=== PATIENT | female | born 1930 | race Caucasian/White ===

== ENCOUNTER 2017-08-16 17:54 | Inpatient (IN) | payer MEDICARE, MEDICAID ==
--- NOTE | 2017-08-16 18:16 | ED Physician Chart ---
ED Chief Complaint/HPI - Patient Information Date Seen:: 08/16/17 Time Seen:: 18:00 Chief Complaint:: Abdominal Pain History of Present Illness:: onset x one day of diffuse, intermittent, crampy abdominal pain, N/V/D x 10; no report of trauma, H/As, S/T, neck pain, C/P, SOB, A/C, fever, chills, bleeding, or urinary s/s Historian:: Patient, EMS Review:: Nurse's Note Reviewed, Old Chart Reviewed, EMS run form Reviewed ED Review of Systems - Review of Systems General/Constitutional: No fever, No chills, No weight loss, No weakness, No diaphoresis, No edema, No loss of appetite Skin: No skin lesions, No rash, No bruising Head: No headache, No light-headedness Eyes: No loss of vision, No pain, No diplopia ENT: No earache, No nasal drainage, No sore throat, No tinnitus Neck: No neck pain, No swelling, No thyromegaly, No stiffness, No mass noted Cardio Vascular: No chest pain, No palpitations, No PND, No orthopnea, No edema Pulmonary: No SOB, No cough, No sputum, No wheezing GI: Nausea, Vomiting, Diarrhea, Pain, No melena, No hematochezia, No constipation, No hematemesis G/U: No dysuria, No frequency, No hematuria, No nacturia [employer]: No vaginal discharge, No abnormal vaginal bleed, No contraction Musculoskeletal: No bone or joint pain, No back pain, No muscle pain Endocrine: No polyuria, No polydipsia Psychiatric: No prior psych history, No depression, No anxiety, No suicidal ideation, No homicidal ideation, No auditory hallucination, No visual hallucination Hematopoietic: No bruising, No lymphadenopathy Allergic/Immuno: No urticaria, No angioedema Neurological: No syncope, No focal symptoms, No weakness, No paresthesia, No headache, No seizure, No dizziness, Confusion, No vertigo ED Past Medical History - Past Medical History Obtainable: Yes Past Medical History: HTN, CAD, Asthma/COPD, PUD/GERD, ESRD, Dementia Family History: Diabetes Melitus, HTN Social History: Non Smoker, No Alcohol, No Drug Use, , Care Facility Surgical History: None Psychiatricy History: Dementia Medication: Reviewed Family Medical History - Family Member Mother History Unknown: Yes ED Physical Exam - Physical Examination General/Constitutional: Awake, Well-developed, well-nourished, Alert, No distress, GCS 15, Non-toxic appearing, Ambulatory Head: Atraumatic Eyes: Lids, conjuctiva normal, PERRL, EOMI Skin: Nl inspection, No rash, No skin lesions, No ecchymosis, Well hydrated, No lymphadenopathy ENMT: External ears, nose nl, TM canals nl, Nasal exam nl, Lips, teeth, gums nl , Oropharynx nl, Tonsils nl Neck: Nontender, Full ROM w/o pain, No JVD, No nuchal rigidity, No bruit, No mass, No stridor Respiratory: Nl effort/Exclusion Other Respiratory comments:: Lungs: + Expiratory Wheezes Cardio Vascular: RRR, No murmur, gallop, rubs, NL S1 S2, Carotid/Femoral/Distal pulses equal bilaterally GI: No tenderness/rebounding/guarding, No organomegaly, No hernia, Normal BS's, Nondistended, No mass/bruits, No McBurney tenderness, Rectum exam nl : No CVA tenderness Extremities: No tenderness or effusion, Full ROM, normal strength in all extremities, No edema, Normal digits & nails Neuro/Psych: Alert/oriented, DTR's symmetric, Normal sensory exam, Normal motor strength, Judgement/insight normal, Mood normal, Normal gait, No focal deficits Misc: Normal back, No paraspinal tenderness ED Labs/Radiology/EKG Results - Lab Results Comments:: Troponin: 0.20 - Radiology Results Comments:: + Infiltrate - EKG Interpretations EKG Time:: 18:24 Rate & Rhythm: 118; ST; PAT Comments:: non-specific st-t changes; T- Wave Inversions ED Septic Shock - . Is Septic Shock (SBP<90, OR Lactate>4 mmol\L) present?: No ED Reassessment (Disposition) - Reassessment Reassessment Condition:: Improved - Diagnosis Diagnosis:: Abdominal Pain; N/V/D; AGE; GI Bleed; AGE; PNA; COPD with Exacerbation; Sepsis; Myocardial Ischemia - Aftercare/Follow up Instructions Aftercare/Follow-Up Instructions:: Counseled pt regarding lab results/diagnosis & need follow up, Counseled pt & family regarding lab results/diagnosis & need follow up - Patient Disposition Discharge/Transfer:: Acute Care w/in this hosp Accepting Physician:: Dr. Cheek Time Called:: 1999 Time Responded:: 20:00 Admitted to:: Telemetry Spoke to:: Dr. Cheek Admitting Medical Physician:: Dr. Cheek Condition at Disposition:: Stable, Improved
[2017-08-16] MEDS ORDERED: Sodium Chloride 0.9% 1,000 ML IV ONE (18:17)
[2017-08-16] MEDS ORDERED: Albuterol/Ipratropium Neb 3 ML AERS HHN ONE (18:21)
[2017-08-16] MEDS ORDERED: Ipratropium Neb 0.5 mg/2.5 mL UD HHN ONE (18:22)
[2017-08-16] MEDS ORDERED: Ipratropium Neb 0.5 mg/2.5 mL UD HHN STA (18:44)
[2017-08-16 18:49] LABS: % EOSINOPHILS 0.3 % (0.0-5.0); % LYMPHOCYTES 15.2 % (20.0-50.0); % MONOCYTES 5.7 % (2.0-10.0); % NEUTROPHILS 78.8 % (40.0-80.0); HEMATOCRIT 46.5 % (41.0-60); HEMOGLOBIN 15.1 gm/dL (12-16); LYMPHOCYTE ABSOLUTE 1.3 Th/cmm (1.5-3.0); MEAN CELL VOLUME 93.1 fl (81-100); MEAN CORPUSCULAR HEMOGLOBIN 30.3 pg (27.0-31.0); MEAN CORPUSCULAR HGB CONC 32.6 pg (28.0-36.0); MEAN PLATELET VOLUME 6.8 fl; MONOCYTE ABSOLUTE 0.5 Th/cmm (0.3-1.0); PLATELET COUNT 427 Th/cmm (150-400); RED CELL DISTRIBUTION WIDTH 14.1 % (11.5-20.0); WHITE BLOOD COUNT 8.8 Th/cmm (4.8-10.8)
[2017-08-16 19:10] LABS: ALB/GLOB RATIO 0.8 (1.0-1.8); ALBUMIN 3.2 gm/dL (3.7-5.3); ALKALINE PHOSPHATASE 107 U/L (34-104); BILIRUBIN,TOTAL 0.5 mg/dL (0.3-1.0); BUN - UREA NITROGEN 15 mg/dL (7-25); CALCIUM SERUM 9.6 mg/dL (8.6-10.3); CHLORIDE 99 mEq/L (98-107); CHOLESTEROL 130 mg/dL (<200); CREATININE - SERUM 1.1 mg/dL (0.6-1.2); CREATININE KINASE 21 U/L (30-223); GLUCOSE 190 mg/dL (70-105); HDL -HIGH DENSITY LIPOPROTEIN 24 mg/dL (23-92); SGOT 20 U/L (13-39); SGPT/ALT 5 U/L (7-52); SODIUM SERUM 135 mEq/L (136-145); TRIGLYCERIDES 143 mg/dL (<150)
[2017-08-16 19:20] LABS: INR 1.06 (0.5-1.4)
[2017-08-16 19:24] LABS: AMYLASE SERUM 12 U/L (29-103); LIPASE 6 U/L (11-82)
[2017-08-16 19:25] LABS: pH 7.38 (7.35-7.45)
[2017-08-16 19:26] LABS: ALLEN TEST y
[2017-08-16] MEDS ORDERED: Levofloxacin 500mg/100mL 500 MG/100 ML BAG IV ONE ×2 (19:55→20:27)
[2017-08-16] MEDS: Sodium Chloride 0.9% 1,000 ML IV SCH (22:00)
[2017-08-16 22:16] LABS: A1C % 5.1 % (4.0-6.0)
[2017-08-16] MEDS: Hydrocodone/APAP 5mg/325mg Tab PO SCH (23:52)
[2017-08-17] MEDS: Morphine Sulfate 2 mg/mL 1mL Syr IVP PRN ×8 (01:36→23:43)
[2017-08-17] MEDS: Levofloxacin 250mg/50mL 250 MG/50 ML BAG IV SCH (02:11)
--- NOTE | 2017-08-17 02:39 | Consultation ---
DATE OF CONSULTATION: 08/16/2017 INFECTIOUS DISEASE CONSULTATION REFERRING PHYSICIAN: Dr. Cheek. REASON FOR CONSULTATION: Abdominal pain. HISTORY OF PRESENT ILLNESS: The patient is an 87-year-old female with a past medical history of hypertension, coronary artery disease, asthma, COPD, peptic ulcer, GERD, brought from the nursing facility for diffuse, crampy abdominal pain associated with nausea, vomiting and diarrhea for the last 10 days. The patient has no fever, no chills. On initial evaluation, the patient's temperature was 98.9 degrees Fahrenheit and WBC count was 8800. Zosyn and vancomycin were started and ID consult was called for further antibiotic management. PAST MEDICAL HISTORY: Includes coronary artery disease, hypertension, asthma, COPD, peptic ulcer, GERD and dementia. FAMILY HISTORY: Diabetes mellitus type 2, hypertension. SOCIAL HISTORY: The patient lives at a nursing facility. No history of smoking, alcohol or drug use. She is . PAST SURGICAL HISTORY: None. PSYCHIATRIC HISTORY: Dementia. REVIEW OF SYSTEMS: GENERAL: The patient has no fever, no chills, no generalized weakness, no loss of appetite. HEENT: No diplopia, no photophobia, no sore throat. RESPIRATORY: No cough, no short of breath. CARDIOVASCULAR: No chest pain or palpitations. GASTROINTESTINAL: The patient has diffuse, crampy abdominal pain. The patient has nausea and vomiting with diarrhea. No constipation. GENITOURINARY: No dysuria. NEUROLOGIC: No headache, no dizziness. No focal weakness. PHYSICAL EXAMINATION: VITAL SIGNS: Current vital signs show temperature is 99.8 degrees Fahrenheit, pulse 102, respirations 18, blood pressure 102/56. GENERAL: The patient is comfortable, lying in the bed, not in acute distress, lean and thin female. HEENT: Head is normocephalic, atraumatic. Oral cavity moist, pink tongue. Eyes: No pallor, no icterus, PERRLA, EOMI. NECK: Supple. No JVD, no carotid bruit. Trachea in midline. CHEST: Bilateral breath sounds. No crackles or wheezing. HEART: S1, S2 within normal limits. Regular rhythm. No murmur, no gallop. ABDOMEN: The patient is nondistended, but the patient has generalized tenderness. Bowel sounds present. EXTREMITIES: No cyanosis, no clubbing, no edema. NEUROLOGICAL: Alert, awake, oriented x 3. Communicates well. Speech is clear. LABORATORY DATA: Current labs show WBC count 8800, hemoglobin 15.1, hematocrit 46.5, platelets are 427,000, neutrophils 78.8%. Sodium is 135, potassium 4, chloride 99, bicarbonate is 23, BUN is 17, creatinine 1.1, and glucose is 190. LFTs reviewed. CPK is 21. Troponin 0.2 and BNP 163. Chest x-ray is pending. IMPRESSION: 1. Colicky abdominal pain, most likely the patient had gastroenteritis, rule out other etiologies. 2. Coronary artery disease. 3. Chronic obstructive pulmonary disease. 4. Peptic ulcer disease. RECOMMENDATIONS: We will continue Zosyn and discontinue vancomycin. We will do a CT scan of the abdomen and pelvis without contrast. Thank you, Dr. Cheek, for involving me in taking care of this patient. JOB# [id number]
[2017-08-17] MEDS: Hydrocodone/APAP 5mg/325mg Tab PO SCH ×4 (04:01→21:00)
[2017-08-17] MEDS: Levothyroxine 0.025 Mg Tab PO SCH (06:57)
[2017-08-17] MEDS: Pantoprazole 40 mg EC Tab PO SCH (06:58)
[2017-08-17 07:13] LABS: URINE MICROSCOPIC INDICATED? YES; URINE SOURCE CATH
[2017-08-17] MEDS: Albuterol Nebulizer 2.5mg/3mL HHN PRN (07:14)
[2017-08-17 08:11] LABS: URINE BILIRUBIN NEGATIVE (NEGATIVE); URINE BLOOD NEGATIVE (NEGATIVE); URINE GLUCOSE (UA) NEGATIVE (NEGATIVE); URINE KETONE 15 mg/dL (NEGATIVE); URINE LEUKOCYTE ESTERASE MODERATE (NEGATIVE); URINE NITRATE POSITIVE (NEGATIVE); URINE PH 5.5 (4.6 - 8.0); URINE PROTEIN TRACE mg/dL (NEGATIVE)
[2017-08-17 08:14] LABS: URINE CLARITY TURBID (CLEAR); URINE COLOR YELLOW
[2017-08-17 08:29] LABS: URINE RBC 0-2 /hpf (0-5)
[2017-08-17 08:30] LABS: URINE BACTERIA 4+ /hpf (NONE SEEN); URINE EPITHELIAL CELLS MODERATE /lpf (FEW); URINE WBC 50-100 /hpf (0-5)
[2017-08-17] MEDS: Diltiazem 30 mg Tab PO SCH ×2 (08:59→17:10)
[2017-08-17] MEDS ORDERED: CRANBERRY FRUIT EXTRACT PO SCH (09:00)
--- NOTE | 2017-08-17 11:48 | Diagnostic Imaging Report ---
CHEST X-RAY: AP view INDICATION: pain COMPARISON: None FINDINGS: Chronic lung changes are seen with increased left basal lung markings. No focal consolidation or effusions. Mild cardiomegaly is noted with atherosclerotic vascular disease. Degenerative changes of the spine are noted. IMPRESSION: Chronic lung changes with increased left basal lung markings probably chronic. Faint infiltrate is less likely. Mild cardiomegaly with atherosclerosis.
--- NOTE | 2017-08-17 13:07 | Diagnostic Imaging Report ---
CT abdomen and pelvis without intravenous contrast Indication: Abdominal pain Comparison: None, Technique: Axial images were obtained from the lung bases to the bilateral proximal femurs without IV contrast. Coronal reconstructions were made. total DLP: 728, [id number] FINDINGS: Hypoventilatory atelectatic changes of the lung bases are noted. Bibasal consolidative changes are noted. Assessment of solid organs is limited that lack of IV contrast. Cardiomegaly is noted. There is a moderate to large sized hiatal hernia. No focal hepatic lesions. Distended gallbladder is noted with gallstones. No focal splenic lesions. Splenic artery calcifications are noted with calcification of the splenic hilum also noted. Severe pancreatic atrophy is noted with no discrete focal lesions. No focal pancreatic lesions. No evidence of hydronephrosis or nephrolithiasis. Diverticulosis is noted with diffuse inflammatory changes and bowel wall thickening involving the descending and sigmoid colon with small surrounding free fluid suggestive of diverticulitis and possible colitis. Inflammatory changes extend to the pelvis. The urinary bladder wall thickening is also noted. There is suggestion of the Tiny pocket of gas is seen along left side of the urinary bladder. There appear to be fibroid calcification of the uterus measuring 1.8 cm. There is a cystic right adnexal mass is in 5.0 x 4.5 cm. No evidence of free abdominal air or abscess. Diffuse atherosclerotic vascular disease is noted. An IVC filter is seen at the L2/L3 level. Extensive multilevel degenerative changes of spine are noted advanced compression fractures of T11 and L3. There is also evidence of previous posterior fusion of L2 and L4. Osteopenia is noted. IMPRESSION: Diverticulosis with bowel wall thickening and inflammatory change extending from the descending colon to the sigmoid colon with small amount of adjacent free fluid. Findings suggest diverticulitis. There may be colitis within the descending colon. Clinical correlation follow up recommended. No evidence of free air or abscess formation. Diverticular inflammatory changes extend to the pelvis. Urinary bladder wall thickening is also noted. There is suggestion of a tiny pocket of gas along the superior left side of the urinary bladder. Recent instrumentation or infectious/inflammatory process should be considered. Occult fistulous connection from the sigmoid colon to the urinary bladder is less likely but cannot be excluded. Right adnexal 5.0 x 4.5 cm cystic lesion. Recommend further assessment with ultrasound. Calcified uterine fibroid. Distended gallbladder with gallstone. Recommend further assessment with ultrasound. Moderate to large size hiatal hernia Bibasilar passive atelectatic and consolidative changes. IVC filter at the L2/L3 level. Advanced compression fractures of T11 and L3. There is also evidence of posterior fusion of L2 and L4. Osteopenia. Degenerative changes. Atherosclerotic vascular disease.
[2017-08-17] MEDS: Sodium Chloride 0.9% 1,000 ML IV SCH (17:53)
--- NOTE | 2017-08-17 23:40 | History and Physical ---
History of Present Illness - HPI Chief Complaint: abdominal pain HPI: 87 year old female who is from a care facility admitted to telemetry due to nausea/vomiting/diarrhea and abdominal pain x 10 days, no fevers were reported at the care facility. Vital Signs: Last Vital Signs Temp 98.6 F 08/17/17 20:03 Pulse 93 08/17/17 20:03 Resp 19 08/17/17 20:03 BP 141/80 08/17/17 20:03 Pulse Ox 94 08/17/17 20:03 Past Medical History Other History: cad copd pud gerd dementia asthma hypotension Family Medical History - Family Member Mother History Unknown: Yes Other Medical History: Unable to remember, can't give information at this time. Social History Smoke: No Alcohol: None Drugs: None Lives: [facility] - Medications Home Medications: Home Medication Medication Instructions Recorded Type Acetaminophen [Pain Reliever] 650 mg PO Q6H PRN 08/16/17 History Albuterol Sulfate 1 unit INH Q2H PRN 08/16/17 History Albuterol Sulfate 1 unit INH Q4H 08/16/17 History Ascorbic Acid 1 tab PO DAILY 08/16/17 History Clopidogrel [Plavix] 1 tab PO DAILY 08/16/17 History Cranberry Fruit Extract [Cranberry] 1 tab PO DAILY 08/16/17 History Diltiazem [Cardizem*] 1 tab PO BID 08/16/17 History Docusate Sodium [Colace] 1 tab PO BID 08/16/17 History Donepezil Hcl [Aricept] 1 tbs PO HS 08/16/17 History Gabapentin [Neurontin] 1 tab PO Q6H 08/16/17 History Hydrocodone/Acetaminophen [[place] 1 tab PO Q6H 08/16/17 History 325 mg-5 mg*] Levothyroxine Sodium [Synthroid] 1 tab PO DAILY 08/16/17 History Montelukast [Singulair] 1 tab PO DAILY 08/16/17 History Pantoprazole Sodium [Protonix] 40 mg PO DAILY 08/16/17 History Prednisone [Adri] 1 tab PO DAILY 08/16/17 History - Allergies Allergies/Adverse Reactions: Allergies Allergy/AdvReac Type Severity Reaction Status Date / Time amoxicillin Allergy Verified 08/16/17 18:23 clindamycin Allergy Verified 08/16/17 18:24 naproxen Allergy Verified 08/16/17 18:24 Penicillins [PCN] Allergy Verified 08/16/17 18:25 raisin Allergy Uncoded 08/16/17 18:27 teflaro Allergy Uncoded 08/16/17 18:26 yogurt Allergy Uncoded 08/16/17 18:26 Review of Systems - Review of Systems Constitutional: Report: Weakness Eyes: Report: No Significant Respiratory: Report: No Significant Cardiovascular: Report: No Significant Neurological: Report: Weakness Physical Exam - Physical Exam HEENT: Report: Ears Nose Throat within normal limits Neck: Report: Within normal limits Cardiovascular Systems: Report: +s1/s2 noted, Regular, Rate and Rhythm Respiratory: Report: Breath Sounds are within normal limits Extremities: Report: Non-tender to palpation. Skin: Report: Color of skin is within normal limits Neuro/Psych: Report: Mood affect is within normal limits - Lab Results All Lab Results last 24 hours: Laboratory Results - last 24 hr 08/17/17 05:05 Urine Source CATH Urine Color YELLOW Urine Clarity TURBID H Urine pH 5.5 Ur Specific [place] 1.020 Urine Protein TRACE Urine Glucose (UA) NEGATIVE Urine Ketones 15 H Urine Blood NEGATIVE Urine Nitrate POSITIVE H Urine Bilirubin NEGATIVE Urine Urobilinogen 1.0 Ur Leukocyte Esterase MODERATE H Urine RBC 0-2 Urine WBC 50-100 H Ur Epithelial Cells MODERATE Urine Bacteria 4+ H - Assessment Assessment: abdominal pain gastroenteritis cad copd pud gerd dementia - Plan Plan: iv vanco as per id cbc/bmp in am continue the rest of the orders
--- NOTE | 2017-08-17 23:41 | Consultation ---
DATE OF CONSULTATION: 08/17/2017 REQUESTING PHYSICIAN: Guilherme Cheek. REASON FOR CONSULTATION: Abdominal pain. HISTORY OF PRESENT ILLNESS: An 87-year-old female with dementia, diabetes mellitus, hypertension, asthma, COPD, peptic ulcer disease, GERD, admitted for a few day history of vague abdominal pain with nausea, vomiting and diarrhea. Here, she was noted to have a normal white blood cell count and hemoglobin, but CT showed diverticulitis. The patient is a poor historian. It is unclear whether she has had diverticulitis previously. She is also unaware of any previous surgeries or past colonoscopies. She is, however, a poor historian. PAST MEDICAL HISTORY: As above. MEDICATIONS: Here are Tylenol, [place], albuterol, vitamin C, Plavix, diltiazem, docusate, Aricept, Neurontin, Levaquin, Synthroid, Singulair, morphine, Zofran, Protonix, Zosyn, prednisone 5 mg daily and IV fluids. ALLERGIES: AMOXICILLIN, CLINDAMYCIN, NAPROSYN, PENICILLIN, RAISINS, TEFLARO, and YOGURT. SOCIAL HISTORY: No recent tobacco, alcohol, or drugs. FAMILY HISTORY: Noncontributory. REVIEW OF SYSTEMS: A comprehensive 12-point review of systems conducted and is only positive for the signs and symptoms present in the history of present illness. PHYSICAL EXAMINATION: VITAL SIGNS: Temperature of 98.0, blood pressure is 114/58, pulse is 92, respirations 76, O2 sat is 94%. GENERAL: The patient is well-developed, well-nourished female in no acute distress. HEENT: Sclerae nonicteric. Oropharynx clear. CARDIOVASCULAR: Regular rate and rhythm. LUNGS: Clear to auscultation bilaterally. ABDOMEN: Soft, mild left lower and right lower quadrant tenderness to palpation with mild distention, no rebound or guarding is appreciated. EXTREMITIES: No clubbing, cyanosis or edema. RECTAL: Deferred. LABORATORY DATA AND IMAGING: Complete blood count is normal except for platelet count mildly elevated to 427. INR is normal. Creatinine is normal. Liver enzymes are normal. Urinalysis shows positive nitrites and leukocyte esterase, 50-100 wbc's and 4+ bacteria. IMPRESSION: 1. Abdominal pain secondary to acute sigmoid diverticulitis with CT positive. There is also question of air around the bladder. This could be from a colovesical fistula versus focal abscess. The patient also likely has a UTI based on urinalysis. 2. Elevated troponin, rule out myocardial infarction. The patient does have a history of coronary artery disease. 3. Gallstones, likely asymptomatic. 4. Hiatal hernia per CT. 5. History of diabetes mellitus, hypertension, asthma, COPD, peptic ulcer disease, GERD and dementia. RECOMMENDATIONS: 1. N.p.o. with IV fluids and pain control measures. 2. Antibiotics. 3. Monitor labs. 4. Conservative non-endoscopic management for now. Thank you, Dr. Guilherme Cheek for involving us in the care of your patient. If you have any further questions, please call us. JOB# [id number]
--- NOTE | 2017-08-18 00:12 | Consultation ---
DATE OF CONSULTATION: 08/17/[address] Cheek. HISTORY OF PRESENT ILLNESS: This is an 87-year-old female patient who was recently discharged from [facility]. The patient has been complaining of abdominal pain, nausea, and vomiting. Following this, the patient came to the Emergency Room. The patient has slightly elevated troponin level and hence Cardiology consult was requested. PAST MEDICAL HISTORY: The patient has a history of stable angina; NONSTEMI, myocardial infarction; hypertension; Sjogren syndrome; chronic hypoxia; hypothyroid; dermatitis; GERD; dementia; diabetes mellitus type 2; diabetic CKD, stage III; diabetic peripheral neuropathy; stage II sacral decubitus ulcer; urinary tract infection; and osteoporosis. FAMILY HISTORY: Unremarkable. SOCIAL HISTORY: No history of smoking, alcohol abuse. ALLERGIES: No known allergies. PHYSICAL EXAMINATION: VITAL SIGNS: Blood pressure 130/80, pulse 90, and respirations 28. HEAD: Normocephalic. No lumps or bumps. EYES: Pupils equal, reactive to light. Fundi show AV nicking, sclerae white, conjunctivae pink. NECK: Carotid 2+. Normal upstroke. JVD flat. Thyroid not palpable. Lymph nodes not palpable. CHEST: Shows increased AP diameter. No kyphosis, scoliosis. LUNGS: Bilateral rales. Decreased breath sounds both the bases. HEART: PMI sixth intercostal space with lateral to midclavicular line. S1, S2, S3, S4. Soft systolic murmur. ABDOMEN: Soft. Liver, spleen not palpable. Tenderness diffuse. No rebound tenderness. Bowel sounds active. RECTAL: Hemoccult negative. EXTREMITIES: Peripheral pulses 2+. No pedal edema. CLINICAL IMPRESSION: Acute respiratory failure; non-ST elevated myocardial infarction; stable angina; hypertension; Sjogren syndrome; chronic hypoxia; hypothyroid; dermatitis; GERD, dementia; diabetic chronic kidney disease, stage III; diabetic peripheral neuropathy; stage II sacral decubitus ulcer; urinary tract infection, and osteoporosis. PLAN: The patient to continue present care. Repeat troponin level. Echocardiogram. JOB# [id number]
[2017-08-18] MEDS: Levofloxacin 250mg/50mL 250 MG/50 ML BAG IV SCH (01:00)
[2017-08-18] MEDS: Morphine Sulfate 2 mg/mL 1mL Syr IVP PRN ×6 (01:12→14:02)
[2017-08-18] MEDS: Sodium Chloride 0.9% 1,000 ML IV SCH ×3 (03:09→22:49)
[2017-08-18] MEDS: Hydrocodone/APAP 5mg/325mg Tab PO SCH ×4 (05:36→21:46)
[2017-08-18] MEDS: Levothyroxine 0.025 Mg Tab PO SCH (08:30)
[2017-08-18] MEDS: Pantoprazole 40 mg EC Tab PO SCH (08:30)
[2017-08-18] MEDS: Diltiazem 30 mg Tab PO SCH ×2 (08:30→17:08)
--- NOTE | 2017-08-18 14:02 | GI Progress Note ---
Subjective - Review of Systems Service Date: 08/18/17 Subjective: GI NOTE CONFUSED C/O R SIDED CHEST PAIN AND ABD PAIN. NPO. Objective - Results Result Diagrams: 08/16/17 18:40 08/16/17 18:40 Recent Labs: Laboratory Last Values WBC 8.8 Th/cmm (4.8-10.8) 08/16/17 18:40 RBC 5.00 Mil/cmm (3.80-5.20) 08/16/17 18:40 Hgb 15.1 gm/dL (12-16) 08/16/17 18:40 Hct 46.5 % (41.0-60) 08/16/17 18:40 MCV 93.1 fl (81-100) 08/16/17 18:40 MCH 30.3 pg (27.0-31.0) 08/16/17 18:40 MCHC Differential 32.6 pg (28.0-36.0) 08/16/17 18:40 RDW 14.1 % (11.5-20.0) 08/16/17 18:40 Plt Count 427 Th/cmm (150-400) H 08/16/17 18:40 MPV 6.8 fl 08/16/17 18:40 Neutrophils % 78.8 % (40.0-80.0) 08/16/17 18:40 Lymphocytes % 15.2 % (20.0-50.0) L 08/16/17 18:40 Monocytes % 5.7 % (2.0-10.0) 08/16/17 18:40 Eosinophils % 0.3 % (0.0-5.0) 08/16/17 18:40 Basophils % 0.0 % (0.0-2.0) 08/16/17 18:40 PT 11.0 SECONDS (9.5-11.5) 08/16/17 18:40 INR 1.06 (0.5-1.4) 08/16/17 18:40 Specimen Source arterial 08/16/17 18:58 Sample Site rr 08/16/17 18:58 pH 7.38 (7.35-7.45) 08/16/17 18:58 pCO2 41.0 mmHg (35.0-45.0) 08/16/17 18:58 pO2 44.0 mmHg (80.0-100.0) L* 08/16/17 18:58 HCO3 23.9 mEq/L (20.0-26.0) 08/16/17 18:58 Base Excess -0.8 mEq/L (-3.0-3.0) 08/16/17 18:58 O2 Saturation 79.0 % (92.0-100.0) L 08/16/17 18:58 Kael Test y 08/16/17 18:58 Vent Rate N/A 08/16/17 18:58 Inspired O2 36 08/16/17 18:58 Tidal Volume N/A 08/16/17 18:58 PEEP N/A 08/16/17 18:58 Pressure (ins/psv/peep) N/A 08/16/17 18:58 Critical Value MM/JY 08/16/17 18:58 Sodium 135 mEq/L (136-145) L 08/16/17 18:40 Potassium 4.0 mEq/L (3.5-5.1) 08/16/17 18:40 Chloride 99 mEq/L (98-107) 08/16/17 18:40 Carbon Dioxide 23.0 mEq/L (21.0-31.0) 08/16/17 18:40 Anion Gap 17.0 (7.0-16.0) H 08/16/17 18:40 BUN 15 mg/dL (7-25) 08/16/17 18:40 Creatinine 1.1 mg/dL (0.6-1.2) 08/16/17 18:40 Est GFR ( Amer) TNP 08/16/17 18:40 Est GFR (Non-Af Amer) TNP 08/16/17 18:40 BUN/Creatinine Ratio 13.6 08/16/17 18:40 Glucose 190 mg/dL (70-105) H 08/16/17 18:40 Hemoglobin A1c % 5.1 % (4.0-6.0) 08/16/17 18:40 Calcium 9.6 mg/dL (8.6-10.3) 08/16/17 18:40 Total Bilirubin 0.5 mg/dL (0.3-1.0) 08/16/17 18:40 AST 20 U/L (13-39) 08/16/17 18:40 ALT 5 U/L (7-52) L 08/16/17 18:40 Alkaline Phosphatase 107 U/L (34-104) H 08/16/17 18:40 Creatine Kinase 21 U/L (30-223) L 08/16/17 18:40 Troponin I 0.20 ng/mL (0.01-0.05) H* 08/16/17 18:40 B-Natriuretic Peptide 163.0 pg/mL (5.0-100.0) H 08/16/17 18:40 Total Protein 7.0 gm/dL (6.0-8.3) 08/16/17 18:40 Albumin 3.2 gm/dL (3.7-5.3) L 08/16/17 18:40 Globulin 3.8 gm/dL 08/16/17 18:40 Albumin/Globulin Ratio 0.8 (1.0-1.8) L 08/16/17 18:40 Triglycerides 143 mg/dL (<150) 08/16/17 18:40 Cholesterol 130 mg/dL (<200) 08/16/17 18:40 LDL Cholesterol Direct 93 mg/dL (75-193) 08/16/17 18:40 HDL Cholesterol 24 mg/dL (23-92) 08/16/17 18:40 Amylase 12 U/L (29-103) L 08/16/17 18:40 Lipase 6 U/L (11-82) L 08/16/17 18:40 Urine Source CATH 08/17/17 05:05 Urine Color YELLOW 08/17/17 05:05 Urine Clarity TURBID (CLEAR) H 08/17/17 05:05 Urine pH 5.5 (4.6 - 8.0) 08/17/17 05:05 Ur Specific [place] 1.020 (1.005-1.030) 08/17/17 05:05 Urine Protein TRACE mg/dL (NEGATIVE) 08/17/17 05:05 Urine Glucose (UA) NEGATIVE mg/dL (NEGATIVE) 08/17/17 05:05 Urine Ketones 15 mg/dL (NEGATIVE) H 08/17/17 05:05 Urine Blood NEGATIVE (NEGATIVE) 08/17/17 05:05 Urine Nitrate POSITIVE (NEGATIVE) H 08/17/17 05:05 Urine Bilirubin NEGATIVE (NEGATIVE) 08/17/17 05:05 Urine Urobilinogen 1.0 E.U./dL (0.2 - 1.0) 08/17/17 05:05 Ur Leukocyte Esterase MODERATE (NEGATIVE) H 08/17/17 05:05 Urine RBC 0-2 /hpf (0-5) 08/17/17 05:05 Urine WBC 50-100 /hpf (0-5) H 08/17/17 05:05 Ur Epithelial Cells MODERATE /lpf (FEW) 08/17/17 05:05 Urine Bacteria 4+ /hpf (NONE SEEN) H 08/17/17 05:05 - Physical Exam Vitals and I&O: Vital Signs Temp 98.4 F 08/18/17 11:40 Pulse 120 08/18/17 11:40 Resp 18 08/18/17 11:40 BP 130/80 08/18/17 11:40 Pulse Ox 95 08/18/17 11:40 Intake & Output 08/17/17 08/18/17 08/18/17 18:59 06:59 18:59 Intake Total 1000 50 Balance 1000 50 Weight (lbs) 73.981 kg 75.296 kg 75.296 kg Intake: Intake, IV Amount 1000 Sodium Chloride 0.9% 1, 1000 000 ml @ 125 mls/hr IV . Q8H [facility] Rx#:[id number] Oral 50 Other: # Voids 4 2 2 # Bowel Movements 0 0 Weight Source Bedscale Bedscale Bedscale Active Medications: Current Medications Acetaminophen (Tylenol) 650 mg PO Q6H PRN PRN Reason: Pain (Mild) Stop: 10/16/17 02:01 Acetaminophen/Hydrocodone Bitart ([place] 5mg/325mg) 1 tab PO Q6H [facility] Stop: 10/15/17 21:29 Last Admin: 08/18/17 09:50 Dose: Not Given Albuterol Sulfate (Albuterol 2.5mg/3ml Neb Ud) 1.25 mg HHN Q2HRT PRN PRN Reason: Shortness of Breath Stop: 10/16/17 02:12 Last Admin: 08/17/17 07:14 Dose: 1.25 mg Ascorbic Acid (Vitamin C) 500 mg PO DAILY [facility] Stop: 10/16/17 08:59 Last Admin: 08/18/17 08:30 Dose: Not Given Clopidogrel Bisulfate (Plavix) 75 mg PO DAILY [facility] Stop: 10/16/17 08:59 Last Admin: 08/18/17 08:30 Dose: Not Given Diltiazem HCl (Cardizem) 30 mg PO BID [facility] Stop: 10/16/17 08:59 Last Admin: 08/18/17 08:30 Dose: Not Given Docusate Sodium (Colace) 100 mg PO BID [facility] Stop: 10/16/17 08:59 Last Admin: 08/18/17 08:30 Dose: Not Given Donepezil HCl (Aricept) 10 mg PO HS [facility] Stop: 10/15/17 21:59 Last Admin: 08/17/17 20:15 Dose: Not Given Gabapentin (Neurontin) 600 mg PO Q6HR [facility] Stop: 10/16/17 05:59 Last Admin: 08/18/17 12:42 Dose: Not Given Piperacillin Sod/Tazobactam (Sod 3.375 gm/ Sodium Chloride) 50 mls @ 100 mls/ hr IV Q8HR [facility] Stop: 10/16/17 04:59 Sodium Chloride (Nacl 0.9%) 1,000 mls @ 125 mls/hr IV .Q8H [facility] Stop: 10/15/17 23:44 Last Admin: 08/18/17 03:09 Dose: 125 mls/hr Levofloxacin (Levaquin Pb) 250 mg in 50 mls @ 50 mls/hr IV Q24HR [facility] Stop: 10/16/17 00:59 Last Admin: 08/18/17 01:00 Dose: 50 mls/hr Levothyroxine Sodium (Synthroid) 0.025 mg PO DAILY@0730 [facility] Stop: 10/16/17 07:29 Last Admin: 08/18/17 08:30 Dose: Not Given Montelukast Sodium (Singulair) 10 mg PO DAILY [facility] Stop: 10/16/17 08:59 Last Admin: 08/18/17 08:31 Dose: Not Given Morphine Sulfate (Morphine) 1 mg IVP Q4HR PRN PRN Reason: Moderate Pain Stop: 10/15/17 21:35 Last Admin: 08/18/17 09:38 Dose: 1 mg Morphine Sulfate (Morphine) 2 mg IVP Q4HR PRN PRN Reason: Severe Pain Stop: 10/15/17 21:36 Last Admin: 08/18/17 03:43 Dose: 2 mg Mupirocin (Bactroban Oint) 1 appl NS BID [facility] Stop: 08/23/17 09:01 Ondansetron HCl (Zofran) 4 mg IV Q6H PRN PRN Reason: Nausea / Vomiting Stop: 10/15/17 21:34 Last Admin: 08/17/17 06:04 Dose: 4 mg Pantoprazole Sodium (Protonix) 40 mg PO QDAC [facility] Stop: 10/16/17 07:29 Last Admin: 08/18/17 08:30 Dose: Not Given Prednisone (Deltasone) 5 mg PO DAILY [facility] Stop: 10/16/17 08:59 Last Admin: 08/18/17 08:31 Dose: Not Given General: No acute distress, Mild distress Neck: Supple Cardiovascular: Regular rate Lungs: Clear to auscultation Abdomen: Bowel sounds, Soft, Tender (DIFFUSE), Distended (MILD) Assessment/Plan - Assessment Assessment: 1. ABD PAIN WITH CT SHOWED SIGMOID DIVERTICULITIS. 2. HIATAL HERNIA. 3. CHOLELITHIASIS, LESS LIKELY ACUTE CHOLECYSTITIS. 4. CHEST PAIN WITH ELEVATED TROPONIN. - Plan Plan: 1. ABX. 2. NPO. 3. PAIN CONTROL MEASURES. 4. IVF. 5. PER CARDS.
--- NOTE | 2017-08-18 14:24 | Infectious Disease Prog Note ---
Infectious Disease Subjective - Review of Systems Service Date: 08/18/17 Subjective: There is no new change, still c/o abdominal pain in lower abdomen. No fever. Infectious Disease Objective - Results Result Diagrams: 08/16/17 18:40 08/16/17 18:40 Recent Labs: Laboratory Last Values WBC 8.8 Th/cmm (4.8-10.8) 08/16/17 18:40 RBC 5.00 Mil/cmm (3.80-5.20) 08/16/17 18:40 Hgb 15.1 gm/dL (12-16) 08/16/17 18:40 Hct 46.5 % (41.0-60) 08/16/17 18:40 MCV 93.1 fl (81-100) 08/16/17 18:40 MCH 30.3 pg (27.0-31.0) 08/16/17 18:40 MCHC Differential 32.6 pg (28.0-36.0) 08/16/17 18:40 RDW 14.1 % (11.5-20.0) 08/16/17 18:40 Plt Count 427 Th/cmm (150-400) H 08/16/17 18:40 MPV 6.8 fl 08/16/17 18:40 Neutrophils % 78.8 % (40.0-80.0) 08/16/17 18:40 Lymphocytes % 15.2 % (20.0-50.0) L 08/16/17 18:40 Monocytes % 5.7 % (2.0-10.0) 08/16/17 18:40 Eosinophils % 0.3 % (0.0-5.0) 08/16/17 18:40 Basophils % 0.0 % (0.0-2.0) 08/16/17 18:40 PT 11.0 SECONDS (9.5-11.5) 08/16/17 18:40 INR 1.06 (0.5-1.4) 08/16/17 18:40 Specimen Source arterial 08/16/17 18:58 Sample Site rr 08/16/17 18:58 pH 7.38 (7.35-7.45) 08/16/17 18:58 pCO2 41.0 mmHg (35.0-45.0) 08/16/17 18:58 pO2 44.0 mmHg (80.0-100.0) L* 08/16/17 18:58 HCO3 23.9 mEq/L (20.0-26.0) 08/16/17 18:58 Base Excess -0.8 mEq/L (-3.0-3.0) 08/16/17 18:58 O2 Saturation 79.0 % (92.0-100.0) L 08/16/17 18:58 Kael Test y 08/16/17 18:58 Vent Rate N/A 08/16/17 18:58 Inspired O2 36 08/16/17 18:58 Tidal Volume N/A 08/16/17 18:58 PEEP N/A 08/16/17 18:58 Pressure (ins/psv/peep) N/A 08/16/17 18:58 Critical Value MM/JY 08/16/17 18:58 Sodium 135 mEq/L (136-145) L 08/16/17 18:40 Potassium 4.0 mEq/L (3.5-5.1) 08/16/17 18:40 Chloride 99 mEq/L (98-107) 08/16/17 18:40 Carbon Dioxide 23.0 mEq/L (21.0-31.0) 08/16/17 18:40 Anion Gap 17.0 (7.0-16.0) H 08/16/17 18:40 BUN 15 mg/dL (7-25) 08/16/17 18:40 Creatinine 1.1 mg/dL (0.6-1.2) 08/16/17 18:40 Est GFR ( Amer) TNP 08/16/17 18:40 Est GFR (Non-Af Amer) TNP 08/16/17 18:40 BUN/Creatinine Ratio 13.6 08/16/17 18:40 Glucose 190 mg/dL (70-105) H 08/16/17 18:40 Hemoglobin A1c % 5.1 % (4.0-6.0) 08/16/17 18:40 Calcium 9.6 mg/dL (8.6-10.3) 08/16/17 18:40 Total Bilirubin 0.5 mg/dL (0.3-1.0) 08/16/17 18:40 AST 20 U/L (13-39) 08/16/17 18:40 ALT 5 U/L (7-52) L 08/16/17 18:40 Alkaline Phosphatase 107 U/L (34-104) H 08/16/17 18:40 Creatine Kinase 21 U/L (30-223) L 08/16/17 18:40 Troponin I 0.20 ng/mL (0.01-0.05) H* 08/16/17 18:40 B-Natriuretic Peptide 163.0 pg/mL (5.0-100.0) H 08/16/17 18:40 Total Protein 7.0 gm/dL (6.0-8.3) 08/16/17 18:40 Albumin 3.2 gm/dL (3.7-5.3) L 08/16/17 18:40 Globulin 3.8 gm/dL 08/16/17 18:40 Albumin/Globulin Ratio 0.8 (1.0-1.8) L 08/16/17 18:40 Triglycerides 143 mg/dL (<150) 08/16/17 18:40 Cholesterol 130 mg/dL (<200) 08/16/17 18:40 LDL Cholesterol Direct 93 mg/dL (75-193) 08/16/17 18:40 HDL Cholesterol 24 mg/dL (23-92) 08/16/17 18:40 Amylase 12 U/L (29-103) L 08/16/17 18:40 Lipase 6 U/L (11-82) L 08/16/17 18:40 Urine Source CATH 08/17/17 05:05 Urine Color YELLOW 08/17/17 05:05 Urine Clarity TURBID (CLEAR) H 08/17/17 05:05 Urine pH 5.5 (4.6 - 8.0) 08/17/17 05:05 Ur Specific [place] 1.020 (1.005-1.030) 08/17/17 05:05 Urine Protein TRACE mg/dL (NEGATIVE) 08/17/17 05:05 Urine Glucose (UA) NEGATIVE mg/dL (NEGATIVE) 08/17/17 05:05 Urine Ketones 15 mg/dL (NEGATIVE) H 08/17/17 05:05 Urine Blood NEGATIVE (NEGATIVE) 08/17/17 05:05 Urine Nitrate POSITIVE (NEGATIVE) H 08/17/17 05:05 Urine Bilirubin NEGATIVE (NEGATIVE) 08/17/17 05:05 Urine Urobilinogen 1.0 E.U./dL (0.2 - 1.0) 08/17/17 05:05 Ur Leukocyte Esterase MODERATE (NEGATIVE) H 08/17/17 05:05 Urine RBC 0-2 /hpf (0-5) 08/17/17 05:05 Urine WBC 50-100 /hpf (0-5) H 08/17/17 05:05 Ur Epithelial Cells MODERATE /lpf (FEW) 08/17/17 05:05 Urine Bacteria 4+ /hpf (NONE SEEN) H 08/17/17 05:05 - Physical Exam Vitals and I&O: Vital Signs Temp 98.4 F 08/18/17 11:40 Pulse 120 08/18/17 11:40 Resp 18 08/18/17 11:40 BP 130/80 08/18/17 11:40 Pulse Ox 95 08/18/17 11:40 Intake & Output 08/17/17 08/18/17 08/18/17 18:59 06:59 18:59 Intake Total 1000 1050 Balance 1000 1050 Weight (lbs) 73.981 kg 75.296 kg 75.296 kg Intake: Intake, IV Amount 1000 1000 Sodium Chloride 0.9% 1, 1000 1000 000 ml @ 125 mls/hr IV . Q8H [facility] Rx#:[id number] Oral 50 Other: # Voids 4 2 2 # Bowel Movements 0 0 Weight Source Bedscale Bedscale Bedscale Active Medications: Current Medications Acetaminophen (Tylenol) 650 mg PO Q6H PRN PRN Reason: Pain (Mild) Stop: 10/16/17 02:01 Acetaminophen/Hydrocodone Bitart ([place] 5mg/325mg) 1 tab PO Q6H [facility] Stop: 10/15/17 21:29 Last Admin: 08/18/17 09:50 Dose: Not Given Albuterol Sulfate (Albuterol 2.5mg/3ml Neb Ud) 1.25 mg HHN Q2HRT PRN PRN Reason: Shortness of Breath Stop: 10/16/17 02:12 Last Admin: 08/17/17 07:14 Dose: 1.25 mg Ascorbic Acid (Vitamin C) 500 mg PO DAILY [facility] Stop: 10/16/17 08:59 Last Admin: 08/18/17 08:30 Dose: Not Given Clopidogrel Bisulfate (Plavix) 75 mg PO DAILY [facility] Stop: 10/16/17 08:59 Last Admin: 08/18/17 08:30 Dose: Not Given Diltiazem HCl (Cardizem) 30 mg PO BID [facility] Stop: 10/16/17 08:59 Last Admin: 08/18/17 08:30 Dose: Not Given Docusate Sodium (Colace) 100 mg PO BID [facility] Stop: 10/16/17 08:59 Last Admin: 08/18/17 08:30 Dose: Not Given Donepezil HCl (Aricept) 10 mg PO HS [facility] Stop: 10/15/17 21:59 Last Admin: 08/17/17 20:15 Dose: Not Given Gabapentin (Neurontin) 600 mg PO Q6HR [facility] Stop: 10/16/17 05:59 Last Admin: 08/18/17 12:42 Dose: Not Given Sodium Chloride (Nacl 0.9%) 1,000 mls @ 125 mls/hr IV .Q8H [facility] Stop: 10/15/17 23:44 Last Admin: 08/18/17 14:03 Dose: 125 mls/hr Levofloxacin (Levaquin Pb) 250 mg in 50 mls @ 50 mls/hr IV Q24HR [facility] Stop: 10/16/17 00:59 Last Admin: 08/18/17 01:00 Dose: 50 mls/hr Levothyroxine Sodium (Synthroid) 0.025 mg PO DAILY@0730 [facility] Stop: 10/16/17 07:29 Last Admin: 08/18/17 08:30 Dose: Not Given Montelukast Sodium (Singulair) 10 mg PO DAILY [facility] Stop: 10/16/17 08:59 Last Admin: 08/18/17 08:31 Dose: Not Given Morphine Sulfate (Morphine) 1 mg IVP Q4HR PRN PRN Reason: Moderate Pain Stop: 10/15/17 21:35 Last Admin: 08/18/17 14:02 Dose: 1 mg Morphine Sulfate (Morphine) 2 mg IVP Q4HR PRN PRN Reason: Severe Pain Stop: 10/15/17 21:36 Last Admin: 08/18/17 03:43 Dose: 2 mg Mupirocin (Bactroban Oint) 1 appl NS BID [facility] Stop: 08/23/17 09:01 Ondansetron HCl (Zofran) 4 mg IV Q6H PRN PRN Reason: Nausea / Vomiting Stop: 10/15/17 21:34 Last Admin: 08/17/17 06:04 Dose: 4 mg Pantoprazole Sodium (Protonix) 40 mg PO QDAC [facility] Stop: 10/16/17 07:29 Last Admin: 08/18/17 08:30 Dose: Not Given Prednisone (Deltasone) 5 mg PO DAILY [facility] Stop: 10/16/17 08:59 Last Admin: 08/18/17 08:31 Dose: Not Given General: no acute distress, well developed, well nourished HEENT: atraumatic, normocephalic, PERRLA, EOMI Neck: supple, no thyromegaly Cardiovascular: S1S2, regular Lungs: clear to auscultation bilaterally, clear to percussion Abdomen: soft, tender, bowel sounds, no distended, no mass Extremities: no cyanosis, no clubbing, no edema Neurological: awake, alert, oriented Skin: intact Infectious Disease Assmt/Plan - Assessment Assessment: 1. Leukocytosis. 2. Abdominal pain. 3. Diabetes mellitus type 2. 4. Hypertension. 5. Hyperlipidemia. - Plan Plan: Continue Levaquin. Nutritional Asmnt/Malnutr-PDOC - Dietary Evaluation Malnutrition Findings (Please click <Entered> for more info): Nutritional Asmnt/Malnutrition Start: 08/17/17 14: 47 Text: Status: Complete Freq: Protocol: Document 08/17/17 14:47 LCHENG (Rec: 08/17/17 15:32 [email or web address]) Nutritional Asmnt/Malnutrition Patient General Information Nutritional Screening High Risk Diagnosis elevated troponin, hypoxia, possible PNA Pertinent Medical Hx/Surgical Hx HTN, CAD, asthma/COPD, PUD/ GERD, ESRD, dementia Subjective Information Pt seen on mask at time of visit. Pt was NPO for CT scheduled today, no PO intake information available. Current Diet Order/ Nutrition Support NPO Pertinent Medications vit C, colace, levaquin, synthorid, zofran, nacl 0.9%, piperacillin, protonix Pertinent Labs 08/16 Na 135, Glucose 190, A1c 5.1 Nutritional Hx/Data Height 1.63 m Height (Calculated Centimeters) 162.6 Current Weight (lbs) 73.936 kg Weight (Calculated Kilograms) 73.9 Weight (Calculated Grams) 56512.6 [place] Body Weight 120 Body Mass Index (BMI) 27.9 Weight Status Overweight GI Symptoms GI Symptoms None Last BM none Difficult in: None Skin Integrity/Comment: reddened to coccyx, buttocks Estimated Nutritional Goals BEE in Kcals: Using Current wt Calories/Kcals/Kg 23-27 Kcals Calculated 7421-7357 Protein g/k Protein Calculated 74 Fluid: ml 1702-1998ml (1ml/kcal) Nutritional Problem 1. Problem Problem altered nutrition related labs Etiology hyperglycemia Signs/Symptoms: glucose 190 at admission Malnutrition Alert Is there a minimum of two criteria No selected? Query Text:Check all the applicable criteria. A minimum of two criteria are recommended for diagnosis of either severe or non-severe malnutrition. Malnutrition Related to Morbid Obesity Malnutrition related to morbid obesity No Intervention/Recommendation Comments 1. Resume pureed GIOVANNI diet after CT exam. Assist pt with meals. If glucose continue high, will consider adding CCHO diet. 2. Monitor PO intake, wt, labs and skin integrity 3. F/U as high risk in 2-3 days, 08/19-08/20 Expected Outcomes/Goals Expected Outcomes/Goals 1. PO intake to meet at least 75% of nutritional needs. 2. Wt stability, skin to remain intact, labs to approach WNL.
--- NOTE | 2017-08-18 14:33 | Infectious Disease Prog Note ---
Infectious Disease Subjective - Review of Systems Service Date: 08/18/17 Subjective: There is no new change, still c/o abdominal pain in lower abdomen. No fever. Infectious Disease Objective - Results Result Diagrams: 08/16/17 18:40 08/16/17 18:40 Recent Labs: Laboratory Last Values WBC 8.8 Th/cmm (4.8-10.8) 08/16/17 18:40 RBC 5.00 Mil/cmm (3.80-5.20) 08/16/17 18:40 Hgb 15.1 gm/dL (12-16) 08/16/17 18:40 Hct 46.5 % (41.0-60) 08/16/17 18:40 MCV 93.1 fl (81-100) 08/16/17 18:40 MCH 30.3 pg (27.0-31.0) 08/16/17 18:40 MCHC Differential 32.6 pg (28.0-36.0) 08/16/17 18:40 RDW 14.1 % (11.5-20.0) 08/16/17 18:40 Plt Count 427 Th/cmm (150-400) H 08/16/17 18:40 MPV 6.8 fl 08/16/17 18:40 Neutrophils % 78.8 % (40.0-80.0) 08/16/17 18:40 Lymphocytes % 15.2 % (20.0-50.0) L 08/16/17 18:40 Monocytes % 5.7 % (2.0-10.0) 08/16/17 18:40 Eosinophils % 0.3 % (0.0-5.0) 08/16/17 18:40 Basophils % 0.0 % (0.0-2.0) 08/16/17 18:40 PT 11.0 SECONDS (9.5-11.5) 08/16/17 18:40 INR 1.06 (0.5-1.4) 08/16/17 18:40 Specimen Source arterial 08/16/17 18:58 Sample Site rr 08/16/17 18:58 pH 7.38 (7.35-7.45) 08/16/17 18:58 pCO2 41.0 mmHg (35.0-45.0) 08/16/17 18:58 pO2 44.0 mmHg (80.0-100.0) L* 08/16/17 18:58 HCO3 23.9 mEq/L (20.0-26.0) 08/16/17 18:58 Base Excess -0.8 mEq/L (-3.0-3.0) 08/16/17 18:58 O2 Saturation 79.0 % (92.0-100.0) L 08/16/17 18:58 Kael Test y 08/16/17 18:58 Vent Rate N/A 08/16/17 18:58 Inspired O2 36 08/16/17 18:58 Tidal Volume N/A 08/16/17 18:58 PEEP N/A 08/16/17 18:58 Pressure (ins/psv/peep) N/A 08/16/17 18:58 Critical Value MM/JY 08/16/17 18:58 Sodium 135 mEq/L (136-145) L 08/16/17 18:40 Potassium 4.0 mEq/L (3.5-5.1) 08/16/17 18:40 Chloride 99 mEq/L (98-107) 08/16/17 18:40 Carbon Dioxide 23.0 mEq/L (21.0-31.0) 08/16/17 18:40 Anion Gap 17.0 (7.0-16.0) H 08/16/17 18:40 BUN 15 mg/dL (7-25) 08/16/17 18:40 Creatinine 1.1 mg/dL (0.6-1.2) 08/16/17 18:40 Est GFR ( Amer) TNP 08/16/17 18:40 Est GFR (Non-Af Amer) TNP 08/16/17 18:40 BUN/Creatinine Ratio 13.6 08/16/17 18:40 Glucose 190 mg/dL (70-105) H 08/16/17 18:40 Hemoglobin A1c % 5.1 % (4.0-6.0) 08/16/17 18:40 Calcium 9.6 mg/dL (8.6-10.3) 08/16/17 18:40 Total Bilirubin 0.5 mg/dL (0.3-1.0) 08/16/17 18:40 AST 20 U/L (13-39) 08/16/17 18:40 ALT 5 U/L (7-52) L 08/16/17 18:40 Alkaline Phosphatase 107 U/L (34-104) H 08/16/17 18:40 Creatine Kinase 21 U/L (30-223) L 08/16/17 18:40 Troponin I 0.20 ng/mL (0.01-0.05) H* 08/16/17 18:40 B-Natriuretic Peptide 163.0 pg/mL (5.0-100.0) H 08/16/17 18:40 Total Protein 7.0 gm/dL (6.0-8.3) 08/16/17 18:40 Albumin 3.2 gm/dL (3.7-5.3) L 08/16/17 18:40 Globulin 3.8 gm/dL 08/16/17 18:40 Albumin/Globulin Ratio 0.8 (1.0-1.8) L 08/16/17 18:40 Triglycerides 143 mg/dL (<150) 08/16/17 18:40 Cholesterol 130 mg/dL (<200) 08/16/17 18:40 LDL Cholesterol Direct 93 mg/dL (75-193) 08/16/17 18:40 HDL Cholesterol 24 mg/dL (23-92) 08/16/17 18:40 Amylase 12 U/L (29-103) L 08/16/17 18:40 Lipase 6 U/L (11-82) L 08/16/17 18:40 Urine Source CATH 08/17/17 05:05 Urine Color YELLOW 08/17/17 05:05 Urine Clarity TURBID (CLEAR) H 08/17/17 05:05 Urine pH 5.5 (4.6 - 8.0) 08/17/17 05:05 Ur Specific [place] 1.020 (1.005-1.030) 08/17/17 05:05 Urine Protein TRACE mg/dL (NEGATIVE) 08/17/17 05:05 Urine Glucose (UA) NEGATIVE mg/dL (NEGATIVE) 08/17/17 05:05 Urine Ketones 15 mg/dL (NEGATIVE) H 08/17/17 05:05 Urine Blood NEGATIVE (NEGATIVE) 08/17/17 05:05 Urine Nitrate POSITIVE (NEGATIVE) H 08/17/17 05:05 Urine Bilirubin NEGATIVE (NEGATIVE) 08/17/17 05:05 Urine Urobilinogen 1.0 E.U./dL (0.2 - 1.0) 08/17/17 05:05 Ur Leukocyte Esterase MODERATE (NEGATIVE) H 08/17/17 05:05 Urine RBC 0-2 /hpf (0-5) 08/17/17 05:05 Urine WBC 50-100 /hpf (0-5) H 08/17/17 05:05 Ur Epithelial Cells MODERATE /lpf (FEW) 08/17/17 05:05 Urine Bacteria 4+ /hpf (NONE SEEN) H 08/17/17 05:05 - Physical Exam Vitals and I&O: Vital Signs Temp 98.4 F 08/18/17 11:40 Pulse 120 08/18/17 11:40 Resp 18 08/18/17 11:40 BP 130/80 08/18/17 11:40 Pulse Ox 95 08/18/17 11:40 Intake & Output 08/17/17 08/18/17 08/18/17 18:59 06:59 18:59 Intake Total 1000 1050 Balance 1000 1050 Weight (lbs) 73.981 kg 75.296 kg 75.296 kg Intake: Intake, IV Amount 1000 1000 Sodium Chloride 0.9% 1, 1000 1000 000 ml @ 125 mls/hr IV . Q8H [facility] Rx#:[id number] Oral 50 Other: # Voids 4 2 2 # Bowel Movements 0 0 Weight Source Bedscale Bedscale Bedscale Active Medications: Current Medications Acetaminophen (Tylenol) 650 mg PO Q6H PRN PRN Reason: Pain (Mild) Stop: 10/16/17 02:01 Acetaminophen/Hydrocodone Bitart ([place] 5mg/325mg) 1 tab PO Q6H [facility] Stop: 10/15/17 21:29 Last Admin: 08/18/17 09:50 Dose: Not Given Albuterol Sulfate (Albuterol 2.5mg/3ml Neb Ud) 1.25 mg HHN Q2HRT PRN PRN Reason: Shortness of Breath Stop: 10/16/17 02:12 Last Admin: 08/17/17 07:14 Dose: 1.25 mg Ascorbic Acid (Vitamin C) 500 mg PO DAILY [facility] Stop: 10/16/17 08:59 Last Admin: 08/18/17 08:30 Dose: Not Given Clopidogrel Bisulfate (Plavix) 75 mg PO DAILY [facility] Stop: 10/16/17 08:59 Last Admin: 08/18/17 08:30 Dose: Not Given Diltiazem HCl (Cardizem) 30 mg PO BID [facility] Stop: 10/16/17 08:59 Last Admin: 08/18/17 08:30 Dose: Not Given Docusate Sodium (Colace) 100 mg PO BID [facility] Stop: 10/16/17 08:59 Last Admin: 08/18/17 08:30 Dose: Not Given Donepezil HCl (Aricept) 10 mg PO HS [facility] Stop: 10/15/17 21:59 Last Admin: 08/17/17 20:15 Dose: Not Given Gabapentin (Neurontin) 600 mg PO Q6HR [facility] Stop: 10/16/17 05:59 Last Admin: 08/18/17 12:42 Dose: Not Given Sodium Chloride (Nacl 0.9%) 1,000 mls @ 125 mls/hr IV .Q8H [facility] Stop: 10/15/17 23:44 Last Admin: 08/18/17 14:03 Dose: 125 mls/hr Levofloxacin (Levaquin Pb) 250 mg in 50 mls @ 50 mls/hr IV Q24HR [facility] Stop: 10/16/17 00:59 Last Admin: 08/18/17 01:00 Dose: 50 mls/hr Levothyroxine Sodium (Synthroid) 0.025 mg PO DAILY@0730 [facility] Stop: 10/16/17 07:29 Last Admin: 08/18/17 08:30 Dose: Not Given Montelukast Sodium (Singulair) 10 mg PO DAILY [facility] Stop: 10/16/17 08:59 Last Admin: 08/18/17 08:31 Dose: Not Given Morphine Sulfate (Morphine) 1 mg IVP Q4HR PRN PRN Reason: Moderate Pain Stop: 10/15/17 21:35 Last Admin: 08/18/17 14:02 Dose: 1 mg Morphine Sulfate (Morphine) 2 mg IVP Q4HR PRN PRN Reason: Severe Pain Stop: 10/15/17 21:36 Last Admin: 08/18/17 03:43 Dose: 2 mg Mupirocin (Bactroban Oint) 1 appl NS BID [facility] Stop: 08/23/17 09:01 Ondansetron HCl (Zofran) 4 mg IV Q6H PRN PRN Reason: Nausea / Vomiting Stop: 10/15/17 21:34 Last Admin: 08/17/17 06:04 Dose: 4 mg Pantoprazole Sodium (Protonix) 40 mg PO QDAC [facility] Stop: 10/16/17 07:29 Last Admin: 08/18/17 08:30 Dose: Not Given Prednisone (Deltasone) 5 mg PO DAILY [facility] Stop: 10/16/17 08:59 Last Admin: 08/18/17 08:31 Dose: Not Given General: no acute distress, well developed, well nourished HEENT: atraumatic, normocephalic, PERRLA, EOMI, moist mucous membrane Neck: supple, no thyromegaly Cardiovascular: S1S2, regular Lungs: clear to auscultation bilaterally, clear to percussion Abdomen: soft, tender, no distended, no mass Extremities: no cyanosis, no clubbing, no edema Neurological: awake, alert, oriented Skin: intact Infectious Disease Assmt/Plan - Assessment Assessment: 1. Leukocytosis. 2. Abdominal pain 2/2 Diverticulitis. 3. UTI 4. Hypertension. 5. Hyperlipidemia. 6. Diabetes mellitus type 2. - Plan Plan: Continue Levaquin. Add flagyl. Nutritional Asmnt/Malnutr-PDOC - Dietary Evaluation Malnutrition Findings (Please click <Entered> for more info): Nutritional Asmnt/Malnutrition Start: 08/17/17 14: 47 Text: Status: Complete Freq: Protocol: Document 08/17/17 14:47 [email or web address] (Rec: 08/17/17 15:32 [email or web address]) Nutritional Asmnt/Malnutrition Patient General Information Nutritional Screening High Risk Diagnosis elevated troponin, hypoxia, possible PNA Pertinent Medical Hx/Surgical Hx HTN, CAD, asthma/COPD, PUD/ GERD, ESRD, dementia Subjective Information Pt seen on mask at time of visit. Pt was NPO for CT scheduled today, no PO intake information available. Current Diet Order/ Nutrition Support NPO Pertinent Medications vit C, colace, levaquin, synthorid, zofran, nacl 0.9%, piperacillin, protonix Pertinent Labs 08/16 Na 135, Glucose 190, A1c 5.1 Nutritional Hx/Data Height 1.63 m Height (Calculated Centimeters) 162.6 Current Weight (lbs) 73.936 kg Weight (Calculated Kilograms) 73.9 Weight (Calculated Grams) 76817.6 [place] Body Weight 120 Body Mass Index (BMI) 27.9 Weight Status Overweight GI Symptoms GI Symptoms None Last BM none Difficult in: None Skin Integrity/Comment: reddened to coccyx, buttocks Estimated Nutritional Goals BEE in Kcals: Using Current wt Calories/Kcals/Kg 23-27 Kcals Calculated 4486-6194 Protein g/k Protein Calculated 74 Fluid: ml 1702-1998ml (1ml/kcal) Nutritional Problem 1. Problem Problem altered nutrition related labs Etiology hyperglycemia Signs/Symptoms: glucose 190 at admission Malnutrition Alert Is there a minimum of two criteria No selected? Query Text:Check all the applicable criteria. A minimum of two criteria are recommended for diagnosis of either severe or non-severe malnutrition. Malnutrition Related to Morbid Obesity Malnutrition related to morbid obesity No Intervention/Recommendation Comments 1. Resume pureed GIOVANNI diet after CT exam. Assist pt with meals. If glucose continue high, will consider adding CCHO diet. 2. Monitor PO intake, wt, labs and skin integrity 3. F/U as high risk in 2-3 days, 08/19-08/20 Expected Outcomes/Goals Expected Outcomes/Goals 1. PO intake to meet at least 75% of nutritional needs. 2. Wt stability, skin to remain intact, labs to approach WNL.
[2017-08-18] MEDS ORDERED: Metoprolol tartrate 1 mg/ml 5mL Amp IV PRN (16:21)
[2017-08-18] MEDS: HYDROmorphone 1 mg/mL 1mL Syr IVP PRN (17:05)
[2017-08-18] MEDS ORDERED: Metoprolol tartrate 1 mg/ml 5mL Amp IV SCH (21:00)
--- NOTE | 2017-08-18 21:08 | General Progress Note ---
Subjective - Review of Systems Service Date: 08/18/17 Objective - Results Result Diagrams: 08/16/17 18:40 08/16/17 18:40 Recent Labs: Laboratory Last Values WBC 8.8 Th/cmm (4.8-10.8) 08/16/17 18:40 RBC 5.00 Mil/cmm (3.80-5.20) 08/16/17 18:40 Hgb 15.1 gm/dL (12-16) 08/16/17 18:40 Hct 46.5 % (41.0-60) 08/16/17 18:40 MCV 93.1 fl (81-100) 08/16/17 18:40 MCH 30.3 pg (27.0-31.0) 08/16/17 18:40 MCHC Differential 32.6 pg (28.0-36.0) 08/16/17 18:40 RDW 14.1 % (11.5-20.0) 08/16/17 18:40 Plt Count 427 Th/cmm (150-400) H 08/16/17 18:40 MPV 6.8 fl 08/16/17 18:40 Neutrophils % 78.8 % (40.0-80.0) 08/16/17 18:40 Lymphocytes % 15.2 % (20.0-50.0) L 08/16/17 18:40 Monocytes % 5.7 % (2.0-10.0) 08/16/17 18:40 Eosinophils % 0.3 % (0.0-5.0) 08/16/17 18:40 Basophils % 0.0 % (0.0-2.0) 08/16/17 18:40 PT 11.0 SECONDS (9.5-11.5) 08/16/17 18:40 INR 1.06 (0.5-1.4) 08/16/17 18:40 Specimen Source arterial 08/16/17 18:58 Sample Site rr 08/16/17 18:58 pH 7.38 (7.35-7.45) 08/16/17 18:58 pCO2 41.0 mmHg (35.0-45.0) 08/16/17 18:58 pO2 44.0 mmHg (80.0-100.0) L* 08/16/17 18:58 HCO3 23.9 mEq/L (20.0-26.0) 08/16/17 18:58 Base Excess -0.8 mEq/L (-3.0-3.0) 08/16/17 18:58 O2 Saturation 79.0 % (92.0-100.0) L 08/16/17 18:58 Kael Test y 08/16/17 18:58 Vent Rate N/A 08/16/17 18:58 Inspired O2 36 08/16/17 18:58 Tidal Volume N/A 08/16/17 18:58 PEEP N/A 08/16/17 18:58 Pressure (ins/psv/peep) N/A 08/16/17 18:58 Critical Value MM/JY 08/16/17 18:58 Sodium 135 mEq/L (136-145) L 08/16/17 18:40 Potassium 4.0 mEq/L (3.5-5.1) 08/16/17 18:40 Chloride 99 mEq/L (98-107) 08/16/17 18:40 Carbon Dioxide 23.0 mEq/L (21.0-31.0) 08/16/17 18:40 Anion Gap 17.0 (7.0-16.0) H 08/16/17 18:40 BUN 15 mg/dL (7-25) 08/16/17 18:40 Creatinine 1.1 mg/dL (0.6-1.2) 08/16/17 18:40 Est GFR ( Amer) TNP 08/16/17 18:40 Est GFR (Non-Af Amer) TNP 08/16/17 18:40 BUN/Creatinine Ratio 13.6 08/16/17 18:40 Glucose 190 mg/dL (70-105) H 08/16/17 18:40 Hemoglobin A1c % 5.1 % (4.0-6.0) 08/16/17 18:40 Calcium 9.6 mg/dL (8.6-10.3) 08/16/17 18:40 Total Bilirubin 0.5 mg/dL (0.3-1.0) 08/16/17 18:40 AST 20 U/L (13-39) 08/16/17 18:40 ALT 5 U/L (7-52) L 08/16/17 18:40 Alkaline Phosphatase 107 U/L (34-104) H 08/16/17 18:40 Creatine Kinase 21 U/L (30-223) L 08/16/17 18:40 Troponin I 0.20 ng/mL (0.01-0.05) H* 08/16/17 18:40 B-Natriuretic Peptide 163.0 pg/mL (5.0-100.0) H 08/16/17 18:40 Total Protein 7.0 gm/dL (6.0-8.3) 08/16/17 18:40 Albumin 3.2 gm/dL (3.7-5.3) L 08/16/17 18:40 Globulin 3.8 gm/dL 08/16/17 18:40 Albumin/Globulin Ratio 0.8 (1.0-1.8) L 08/16/17 18:40 Triglycerides 143 mg/dL (<150) 08/16/17 18:40 Cholesterol 130 mg/dL (<200) 08/16/17 18:40 LDL Cholesterol Direct 93 mg/dL (75-193) 08/16/17 18:40 HDL Cholesterol 24 mg/dL (23-92) 08/16/17 18:40 Amylase 12 U/L (29-103) L 08/16/17 18:40 Lipase 6 U/L (11-82) L 08/16/17 18:40 Urine Source CATH 08/17/17 05:05 Urine Color YELLOW 08/17/17 05:05 Urine Clarity TURBID (CLEAR) H 08/17/17 05:05 Urine pH 5.5 (4.6 - 8.0) 08/17/17 05:05 Ur Specific [place] 1.020 (1.005-1.030) 08/17/17 05:05 Urine Protein TRACE mg/dL (NEGATIVE) 08/17/17 05:05 Urine Glucose (UA) NEGATIVE mg/dL (NEGATIVE) 08/17/17 05:05 Urine Ketones 15 mg/dL (NEGATIVE) H 08/17/17 05:05 Urine Blood NEGATIVE (NEGATIVE) 08/17/17 05:05 Urine Nitrate POSITIVE (NEGATIVE) H 08/17/17 05:05 Urine Bilirubin NEGATIVE (NEGATIVE) 08/17/17 05:05 Urine Urobilinogen 1.0 E.U./dL (0.2 - 1.0) 08/17/17 05:05 Ur Leukocyte Esterase MODERATE (NEGATIVE) H 08/17/17 05:05 Urine RBC 0-2 /hpf (0-5) 08/17/17 05:05 Urine WBC 50-100 /hpf (0-5) H 08/17/17 05:05 Ur Epithelial Cells MODERATE /lpf (FEW) 08/17/17 05:05 Urine Bacteria 4+ /hpf (NONE SEEN) H 08/17/17 05:05 - Physical Exam Vitals and I&O: Vital Signs Temp 98.1 F 08/18/17 20:23 Pulse 136 08/18/17 20:23 Resp 20 08/18/17 20:23 BP 119/68 08/18/17 20:23 Pulse Ox 96 08/18/17 20:23 Intake & Output 08/18/17 08/18/17 08/19/17 06:59 18:59 06:59 Intake Total 1000 1050 0 Balance 1000 1050 0 Weight (lbs) 75.296 kg 75.296 kg 74.843 kg Intake: Intake, IV Amount 1000 1000 Sodium Chloride 0.9% 1, 1000 1000 000 ml @ 125 mls/hr IV . Q8H [facility] Rx#:[id number] Oral 50 0 Other: # Voids 2 2 2 # Bowel Movements 0 0 1 Stool Characteristics Formed Weight Source Bedscale Bedscale Bedscale Active Medications: Current Medications Acetaminophen (Tylenol) 650 mg PO Q6H PRN PRN Reason: Pain (Mild) Stop: 10/16/17 02:01 Acetaminophen/Hydrocodone Bitart ([place] 5mg/325mg) 1 tab PO Q6H [facility] Stop: 10/15/17 21:29 Last Admin: 08/18/17 17:08 Dose: Not Given Albuterol Sulfate (Albuterol 2.5mg/3ml Neb Ud) 1.25 mg HHN Q2HRT PRN PRN Reason: Shortness of Breath Stop: 10/16/17 02:12 Last Admin: 08/17/17 07:14 Dose: 1.25 mg Ascorbic Acid (Vitamin C) 500 mg PO DAILY [facility] Stop: 10/16/17 08:59 Last Admin: 08/18/17 08:30 Dose: Not Given Carvedilol (Coreg) 6.25 mg PO BID [facility] Stop: 10/17/17 16:59 Last Admin: 08/18/17 17:08 Dose: Not Given Clopidogrel Bisulfate (Plavix) 75 mg PO DAILY [facility] Stop: 10/16/17 08:59 Last Admin: 08/18/17 08:30 Dose: Not Given Diltiazem HCl (Cardizem) 60 mg PO Q6HR [facility] Stop: 10/17/17 17:59 Last Admin: 08/18/17 17:08 Dose: Not Given Docusate Sodium (Colace) 100 mg PO BID [facility] Stop: 10/16/17 08:59 Last Admin: 08/18/17 17:08 Dose: Not Given Donepezil HCl (Aricept) 10 mg PO HS [facility] Stop: 10/15/17 21:59 Last Admin: 08/18/17 20:12 Dose: Not Given Gabapentin (Neurontin) 600 mg PO Q6HR [facility] Stop: 10/16/17 05:59 Last Admin: 08/18/17 17:09 Dose: Not Given Hydromorphone HCl (Dilaudid) 1 mg IVP Q6H PRN PRN Reason: Severe Pain Stop: 10/17/17 16:38 Last Admin: 08/18/17 17:05 Dose: 1 mg Sodium Chloride (Nacl 0.9%) 1,000 mls @ 125 mls/hr IV .Q8H [facility] Stop: 10/15/17 23:44 Last Admin: 08/18/17 14:03 Dose: 125 mls/hr Levofloxacin (Levaquin Pb) 250 mg in 50 mls @ 50 mls/hr IV Q24HR [facility] Stop: 10/16/17 00:59 Last Admin: 08/18/17 01:00 Dose: 50 mls/hr Levothyroxine Sodium (Synthroid) 0.025 mg PO DAILY@0730 [facility] Stop: 10/16/17 07:29 Last Admin: 08/18/17 08:30 Dose: Not Given Metronidazole (Flagyl) 500 mg PO BID [facility] Stop: 08/25/17 09:01 Last Admin: 08/18/17 17:08 Dose: Not Given Montelukast Sodium (Singulair) 10 mg PO DAILY [facility] Stop: 10/16/17 08:59 Last Admin: 08/18/17 08:31 Dose: Not Given Morphine Sulfate (Morphine) 1 mg IVP Q4HR PRN PRN Reason: Moderate Pain Stop: 10/15/17 21:35 Last Admin: 08/18/17 14:02 Dose: 1 mg Mupirocin (Bactroban Oint) 1 appl NS BID [facility] Stop: 08/23/17 09:01 Last Admin: 08/18/17 16:27 Dose: 1 appl Ondansetron HCl (Zofran) 4 mg IV Q6H PRN PRN Reason: Nausea / Vomiting Stop: 10/15/17 21:34 Last Admin: 08/18/17 16:26 Dose: 4 mg Pantoprazole Sodium (Protonix) 40 mg PO QDAC [facility] Stop: 10/16/17 07:29 Last Admin: 08/18/17 08:30 Dose: Not Given Prednisone (Deltasone) 5 mg PO DAILY [facility] Stop: 10/16/17 08:59 Last Admin: 08/18/17 08:31 Dose: Not Given General: No acute distress, Mild distress Neck: Supple Cardiovascular: Regular rate Lungs: Clear to auscultation Abdomen: Bowel sounds, Soft, Tender (DIFFUSE), Distended (MILD) Assessment/Plan - Assessment Assessment: abdominal pain gastroenteritis cad copd pud gerd dementia - Plan Plan: iv vanco as per id cbc/bmp in am continue the rest of the orders Nutritional Asmnt/Malnutr-PDOC - Dietary Evaluation Malnutrition Findings (Please click <Entered> for more info): Nutritional Asmnt/Malnutrition Start: 08/17/17 14: 47 Text: Status: Complete Freq: Protocol: Document 08/17/17 14:47 LCHENG (Rec: 08/17/17 15:32 [email or web address]) Nutritional Asmnt/Malnutrition Patient General Information Nutritional Screening High Risk Diagnosis elevated troponin, hypoxia, possible PNA Pertinent Medical Hx/Surgical Hx HTN, CAD, asthma/COPD, PUD/ GERD, ESRD, dementia Subjective Information Pt seen on mask at time of visit. Pt was NPO for CT scheduled today, no PO intake information available. Current Diet Order/ Nutrition Support NPO Pertinent Medications vit C, colace, levaquin, synthorid, zofran, nacl 0.9%, piperacillin, protonix Pertinent Labs 08/16 Na 135, Glucose 190, A1c 5.1 Nutritional Hx/Data Height 1.63 m Height (Calculated Centimeters) 162.6 Current Weight (lbs) 73.936 kg Weight (Calculated Kilograms) 73.9 Weight (Calculated Grams) 79708.6 [place] Body Weight 120 Body Mass Index (BMI) 27.9 Weight Status Overweight GI Symptoms GI Symptoms None Last BM none Difficult in: None Skin Integrity/Comment: reddened to coccyx, buttocks Estimated Nutritional Goals BEE in Kcals: Using Current wt Calories/Kcals/Kg 23-27 Kcals Calculated 6329-5038 Protein g/k Protein Calculated 74 Fluid: ml 1702-1998ml (1ml/kcal) Nutritional Problem 1. Problem Problem altered nutrition related labs Etiology hyperglycemia Signs/Symptoms: glucose 190 at admission Malnutrition Alert Is there a minimum of two criteria No selected? Query Text:Check all the applicable criteria. A minimum of two criteria are recommended for diagnosis of either severe or non-severe malnutrition. Malnutrition Related to Morbid Obesity Malnutrition related to morbid obesity No Intervention/Recommendation Comments 1. Resume pureed GIOVANNI diet after CT exam. Assist pt with meals. If glucose continue high, will consider adding CCHO diet. 2. Monitor PO intake, wt, labs and skin integrity 3. F/U as high risk in 2-3 days, 08/19-08/20 Expected Outcomes/Goals Expected Outcomes/Goals 1. PO intake to meet at least 75% of nutritional needs. 2. Wt stability, skin to remain intact, labs to approach WNL.
[2017-08-18] MEDS: HYDROmorphone 2 mg/mL 1mL Vial IVP PRN (22:50)
[2017-08-19] MEDS: Diltiazem 30 mg Tab PO SCH ×4 (00:01→17:50)
[2017-08-19] MEDS: Levofloxacin 250mg/50mL 250 MG/50 ML BAG IV SCH (00:21)
[2017-08-19] MEDS: Hydrocodone/APAP 5mg/325mg Tab PO SCH ×4 (03:59→21:30)
[2017-08-19] MEDS: Pantoprazole 40 mg EC Tab PO SCH (06:39)
[2017-08-19] MEDS: Levothyroxine 0.025 Mg Tab PO SCH (06:39)
[2017-08-19 10:16] LABS: % BASOPHILS 0.1 % (0.0-2.0); % EOSINOPHILS 0.1 % (0.0-5.0); % LYMPHOCYTES 15.6 % (20.0-50.0); % MONOCYTES 5.9 % (2.0-10.0); % NEUTROPHILS 78.3 % (40.0-80.0); HEMATOCRIT 37.3 % (41.0-60); HEMOGLOBIN 12.6 gm/dL (12-16); LYMPHOCYTE ABSOLUTE 1.7 Th/cmm (1.5-3.0); MEAN CELL VOLUME 91.9 fl (81-100); MEAN CORPUSCULAR HEMOGLOBIN 31.1 pg (27.0-31.0); MEAN CORPUSCULAR HGB CONC 33.8 pg (28.0-36.0); MEAN PLATELET VOLUME 7.7 fl; MONOCYTE ABSOLUTE 0.6 Th/cmm (0.3-1.0); NEUTROPHILE ABSOLUTE 8.5 Th/cmm (1.8-8.0); PLATELET COUNT 199 Th/cmm (150-400); RED BLOOD COUNT 4.07 Mil/cmm (3.80-5.20); RED CELL DISTRIBUTION WIDTH 14.3 % (11.5-20.0); WHITE BLOOD COUNT 10.8 Th/cmm (4.8-10.8)
[2017-08-19 10:28] LABS: ALB/GLOB RATIO 0.9 (1.0-1.8); ALBUMIN 2.6 gm/dL (3.7-5.3); ALKALINE PHOSPHATASE 89 U/L (34-104); ANION GAP 14.5 (7.0-16.0); BILIRUBIN,TOTAL 0.7 mg/dL (0.3-1.0); BUN - UREA NITROGEN 37 mg/dL (7-25); CALCIUM SERUM 7.6 mg/dL (8.6-10.3); CHLORIDE 111 mEq/L (98-107); CREATININE - SERUM 1.9 mg/dL (0.6-1.2); GLUCOSE 137 mg/dL (70-105); POTASSIUM SERUM 4.5 mEq/L (3.5-5.1); SGOT 2915 U/L (13-39); SGPT/ALT 1097 U/L (7-52); SODIUM SERUM 139 mEq/L (136-145); TOTAL PROTEIN,SERUM 5.5 gm/dL (6.0-8.3)
[2017-08-19] MEDS: Sodium Chloride 0.9% 1,000 ML IV SCH (11:25)
[2017-08-19] MEDS ORDERED: Enoxaparin Subq per Pharmacy MC PRN (11:41)
[2017-08-19] MEDS ORDERED: Enoxaparin 30 mg/0.3 mL 0.3mL Syr SUBQ SCH (11:45)
[2017-08-19 11:58] LABS: CHOLESTEROL 82 mg/dL (<200); HDL -HIGH DENSITY LIPOPROTEIN 17 mg/dL (23-92); TRIGLYCERIDES 145 mg/dL (<150)
[2017-08-19 12:12] LABS: INR 1.46 (0.5-1.4); PROTHROMBIN TIME (TEST) 15.5 SECONDS (9.5-11.5)
[2017-08-19] MEDS: HYDROmorphone 2 mg/mL 1mL Vial IVP PRN (12:15)
[2017-08-19 12:56] LABS: CHOLESTEROL 84 mg/dL (<200); HDL -HIGH DENSITY LIPOPROTEIN 18 mg/dL (23-92); TRIGLYCERIDES 149 mg/dL (<150)
--- NOTE | 2017-08-19 13:44 | Infectious Disease Prog Note ---
Infectious Disease Subjective - Review of Systems Service Date: 08/19/17 Subjective: High tropnin, transferred to the ICU. She c/o abdominal pain in lower abdomen. No fever. Infectious Disease Objective - Results Result Diagrams: 08/19/17 09:59 08/19/17 09:59 Recent Labs: Laboratory Last Values WBC 10.8 Th/cmm (4.8-10.8) 08/19/17 09:59 RBC 4.07 Mil/cmm (3.80-5.20) 08/19/17 09:59 Hgb 12.6 gm/dL (12-16) 08/19/17 09:59 Hct 37.3 % (41.0-60) L 08/19/17 09:59 MCV 91.9 fl (81-100) 08/19/17 09:59 MCH 31.1 pg (27.0-31.0) H 08/19/17 09:59 MCHC Differential 33.8 pg (28.0-36.0) 08/19/17 09:59 RDW 14.3 % (11.5-20.0) 08/19/17 09:59 Plt Count 199 Th/cmm (150-400) 08/19/17 09:59 MPV 7.7 fl 08/19/17 09:59 Neutrophils % 78.3 % (40.0-80.0) 08/19/17 09:59 Lymphocytes % 15.6 % (20.0-50.0) L 08/19/17 09:59 Monocytes % 5.9 % (2.0-10.0) 08/19/17 09:59 Eosinophils % 0.1 % (0.0-5.0) 08/19/17 09:59 Basophils % 0.1 % (0.0-2.0) 08/19/17 09:59 PT 15.5 SECONDS (9.5-11.5) H 08/19/17 11:49 INR 1.46 (0.5-1.4) H 08/19/17 11:49 PTT (Actin FS) 34.3 SECONDS (26.0-38.0) 08/19/17 11:49 Specimen Source arterial 08/16/17 18:58 Sample Site rr 08/16/17 18:58 pH 7.38 (7.35-7.45) 08/16/17 18:58 pCO2 41.0 mmHg (35.0-45.0) 08/16/17 18:58 pO2 44.0 mmHg (80.0-100.0) L* 08/16/17 18:58 HCO3 23.9 mEq/L (20.0-26.0) 08/16/17 18:58 Base Excess -0.8 mEq/L (-3.0-3.0) 08/16/17 18:58 O2 Saturation 79.0 % (92.0-100.0) L 08/16/17 18:58 Kael Test y 08/16/17 18:58 Vent Rate N/A 08/16/17 18:58 Inspired O2 36 08/16/17 18:58 Tidal Volume N/A 08/16/17 18:58 PEEP N/A 08/16/17 18:58 Pressure (ins/psv/peep) N/A 08/16/17 18:58 Critical Value MM/JY 08/16/17 18:58 Sodium 139 mEq/L (136-145) 08/19/17 09:59 Potassium 4.5 mEq/L (3.5-5.1) 08/19/17 09:59 Chloride 111 mEq/L (98-107) H 08/19/17 09:59 Carbon Dioxide 18.0 mEq/L (21.0-31.0) L 08/19/17 09:59 Anion Gap 14.5 (7.0-16.0) 08/19/17 09:59 BUN 37 mg/dL (7-25) H 08/19/17 09:59 Creatinine 1.9 mg/dL (0.6-1.2) H 08/19/17 09:59 Est GFR ( Amer) TNP 08/19/17 09:59 Est GFR (Non-Af Amer) TNP 08/19/17 09:59 BUN/Creatinine Ratio 19.5 08/19/17 09:59 Glucose 137 mg/dL (70-105) H 08/19/17 09:59 Hemoglobin A1c % 5.1 % (4.0-6.0) 08/16/17 18:40 Calcium 7.6 mg/dL (8.6-10.3) L 08/19/17 09:59 Total Bilirubin 0.7 mg/dL (0.3-1.0) 08/19/17 09:59 AST 2915 U/L (13-39) H 08/19/17 09:59 ALT 1097 U/L (7-52) H 08/19/17 09:59 Alkaline Phosphatase 89 U/L (34-104) 08/19/17 09:59 Creatine Kinase 21 U/L (30-223) L 08/16/17 18:40 Troponin I 7.97 ng/mL (0.01-0.05) H* D 08/19/17 12:37 B-Natriuretic Peptide 163.0 pg/mL (5.0-100.0) H 08/16/17 18:40 Total Protein 5.5 gm/dL (6.0-8.3) L 08/19/17 09:59 Albumin 2.6 gm/dL (3.7-5.3) L 08/19/17 09:59 Globulin 2.9 gm/dL 08/19/17 09:59 Albumin/Globulin Ratio 0.9 (1.0-1.8) L 08/19/17 09:59 Triglycerides 149 mg/dL (<150) 08/19/17 12:37 Cholesterol 84 mg/dL (<200) 08/19/17 12:37 LDL Cholesterol Direct 47 mg/dL (75-193) L 08/19/17 12:37 HDL Cholesterol 18 mg/dL (23-92) L 08/19/17 12:37 Amylase 12 U/L (29-103) L 08/16/17 18:40 Lipase 6 U/L (11-82) L 08/16/17 18:40 TSH 1.72 uIU/ml (0.34-5.60) 08/19/17 09:59 Urine Source CATH 08/17/17 05:05 Urine Color YELLOW 08/17/17 05:05 Urine Clarity TURBID (CLEAR) H 08/17/17 05:05 Urine pH 5.5 (4.6 - 8.0) 08/17/17 05:05 Ur Specific [place] 1.020 (1.005-1.030) 08/17/17 05:05 Urine Protein TRACE mg/dL (NEGATIVE) 08/17/17 05:05 Urine Glucose (UA) NEGATIVE mg/dL (NEGATIVE) 08/17/17 05:05 Urine Ketones 15 mg/dL (NEGATIVE) H 08/17/17 05:05 Urine Blood NEGATIVE (NEGATIVE) 08/17/17 05:05 Urine Nitrate POSITIVE (NEGATIVE) H 08/17/17 05:05 Urine Bilirubin NEGATIVE (NEGATIVE) 08/17/17 05:05 Urine Urobilinogen 1.0 E.U./dL (0.2 - 1.0) 08/17/17 05:05 Ur Leukocyte Esterase MODERATE (NEGATIVE) H 08/17/17 05:05 Urine RBC 0-2 /hpf (0-5) 08/17/17 05:05 Urine WBC 50-100 /hpf (0-5) H 08/17/17 05:05 Ur Epithelial Cells MODERATE /lpf (FEW) 08/17/17 05:05 Urine Bacteria 4+ /hpf (NONE SEEN) H 08/17/17 05:05 - Physical Exam Vitals and I&O: Vital Signs Temp 97.5 F 08/19/17 13:00 Pulse 94 08/19/17 13:00 Resp 20 08/19/17 13:00 BP 113/63 08/19/17 13:00 Pulse Ox 99 08/19/17 13:00 Intake & Output 08/18/17 08/19/17 08/19/17 18:59 06:59 18:59 Intake Total 1050 0 Balance 1050 0 Weight (lbs) 75.296 kg 74.843 kg Intake: Intake, IV Amount 1000 2050 Levofloxacin 250mg/50mL 50 250 mg In 50 ml @ 50 mls/ hr IV Q24HR [facility] Rx#: [id number] Sodium Chloride 0.9% 1, 1000 2000 000 ml @ 125 mls/hr IV . Q8H [facility] Rx#:[id number] Oral 50 0 Other: # Voids 2 3 # Bowel Movements 0 1 Stool Characteristics Formed Weight Source Bedscale Bedscale Active Medications: Current Medications Acetaminophen (Tylenol) 650 mg PO Q6H PRN PRN Reason: Pain (Mild) Stop: 10/16/17 02:01 Acetaminophen/Hydrocodone Bitart ([place] 5mg/325mg) 1 tab PO Q6H [facility] Stop: 10/15/17 21:29 Last Admin: 08/19/17 09:05 Dose: Not Given Albuterol Sulfate (Albuterol 2.5mg/3ml Neb Ud) 1.25 mg HHN Q2HRT PRN PRN Reason: Shortness of Breath Stop: 10/16/17 02:12 Last Admin: 08/17/17 07:14 Dose: 1.25 mg Ascorbic Acid (Vitamin C) 500 mg PO DAILY [facility] Stop: 10/16/17 08:59 Last Admin: 08/19/17 09:02 Dose: Not Given Carvedilol (Coreg) 6.25 mg PO BID [facility] Stop: 10/17/17 16:59 Last Admin: 08/19/17 09:02 Dose: Not Given Clopidogrel Bisulfate (Plavix) 75 mg PO DAILY [facility] Stop: 10/16/17 08:59 Last Admin: 08/19/17 09:03 Dose: Not Given Diltiazem HCl (Cardizem) 60 mg PO Q6HR [facility] Stop: 10/17/17 17:59 Last Admin: 08/19/17 05:02 Dose: Not Given Docusate Sodium (Colace) 100 mg PO BID [facility] Stop: 10/16/17 08:59 Last Admin: 08/19/17 09:03 Dose: Not Given Donepezil HCl (Aricept) 10 mg PO HS [facility] Stop: 10/15/17 21:59 Last Admin: 08/18/17 20:12 Dose: Not Given Enoxaparin Sodium (Lovenox) 30 mg SUBQ DAILY [facility] Stop: 10/18/17 11:44 Last Admin: 08/19/17 12:20 Dose: 30 mg Gabapentin (Neurontin) 600 mg PO Q6HR [facility] Stop: 10/16/17 05:59 Last Admin: 08/19/17 05:03 Dose: Not Given Hydromorphone HCl (Dilaudid) 1 mg IVP Q6H PRN PRN Reason: Pain (Moderate) Stop: 10/17/17 16:38 Last Admin: 08/18/17 17:05 Dose: 1 mg Hydromorphone HCl (Dilaudid) 2 mg IVP Q6H PRN PRN Reason: SEVERE PAIN Stop: 10/17/17 21:10 Last Admin: 08/19/17 12:15 Dose: 2 mg Sodium Chloride (Nacl 0.9%) 1,000 mls @ 125 mls/hr IV .Q8H [facility] Stop: 10/15/17 23:44 Last Admin: 08/19/17 11:25 Dose: 125 mls/hr Levofloxacin (Levaquin Pb) 250 mg in 50 mls @ 50 mls/hr IV Q24HR [facility] Stop: 10/16/17 00:59 Last Infusion: 08/19/17 00:21 Dose: Infused Levothyroxine Sodium (Synthroid) 0.025 mg PO DAILY@0730 [facility] Stop: 10/16/17 07:29 Last Admin: 08/19/17 06:39 Dose: Not Given Lorazepam (Ativan) 0.5 mg IVP Q6HR PRN; Protocol PRN Reason: Agitation Stop: 10/18/17 11:03 Metronidazole (Flagyl) 500 mg PO BID [facility] Stop: 08/25/17 09:01 Last Admin: 08/19/17 09:04 Dose: Not Given Miscellaneous (Lovenox Subq Per Pharmacy) 1 [facility] PRN PRN PRN Reason: PROTOCOL Stop: 10/18/17 11:40 Montelukast Sodium (Singulair) 10 mg PO DAILY [facility] Stop: 10/16/17 08:59 Last Admin: 08/19/17 09:04 Dose: Not Given Morphine Sulfate (Morphine) 1 mg IVP Q4HR PRN PRN Reason: Moderate Pain Stop: 10/15/17 21:35 Last Admin: 08/18/17 14:02 Dose: 1 mg Mupirocin (Bactroban Oint) 1 appl NS BID [facility] Stop: 08/23/17 09:01 Last Admin: 08/19/17 09:01 Dose: 1 appl Ondansetron HCl (Zofran) 4 mg IV Q6H PRN PRN Reason: Nausea / Vomiting Stop: 10/15/17 21:34 Last Admin: 08/18/17 16:26 Dose: 4 mg Pantoprazole Sodium (Protonix) 40 mg PO QDAC [facility] Stop: 10/16/17 07:29 Last Admin: 08/19/17 06:39 Dose: Not Given Prednisone (Deltasone) 5 mg PO DAILY [facility] Stop: 10/16/17 08:59 Last Admin: 08/19/17 09:04 Dose: Not Given General: no acute distress, cachectic HEENT: atraumatic, normocephalic, PERRLA, EOMI Neck: supple, no thyromegaly Cardiovascular: S1S2, regular Lungs: clear to auscultation bilaterally, clear to percussion Abdomen: soft, tender, no distended Extremities: no cyanosis, no clubbing, no edema Neurological: awake, alert, oriented Skin: intact Infectious Disease Assmt/Plan - Assessment Assessment: 1. Leukocytosis. 2. Abdominal pain 2/2 Diverticulitis. 3. UTI 4. Hypertension. 5. Hyperlipidemia. 6. Diabetes mellitus type 2. - Plan Plan: Continue Levaquin and flagyl. Nutritional Asmnt/Malnutr-PDOC - Dietary Evaluation Malnutrition Findings (Please click <Entered> for more info): Nutritional Asmnt/Malnutrition Start: 08/17/17 14: 47 Text: Status: Complete Freq: Protocol: Document 08/17/17 14:47 DAMONG (Rec: 08/17/17 15:32 [email or web address]) Nutritional Asmnt/Malnutrition Patient General Information Nutritional Screening High Risk Diagnosis elevated troponin, hypoxia, possible PNA Pertinent Medical Hx/Surgical Hx HTN, CAD, asthma/COPD, PUD/ GERD, ESRD, dementia Subjective Information Pt seen on mask at time of visit. Pt was NPO for CT scheduled today, no PO intake information available. Current Diet Order/ Nutrition Support NPO Pertinent Medications vit C, colace, levaquin, synthorid, zofran, nacl 0.9%, piperacillin, protonix Pertinent Labs 08/16 Na 135, Glucose 190, A1c 5.1 Nutritional Hx/Data Height 1.63 m Height (Calculated Centimeters) 162.6 Current Weight (lbs) 73.936 kg Weight (Calculated Kilograms) 73.9 Weight (Calculated Grams) 04649.6 [place]ter Body Weight 120 Body Mass Index (BMI) 27.9 Weight Status Overweight GI Symptoms GI Symptoms None Last BM none Difficult in: None Skin Integrity/Comment: reddened to coccyx, buttocks Estimated Nutritional Goals BEE in Kcals: Using Current wt Calories/Kcals/Kg 23-27 Kcals Calculated 8822-7476 Protein g/k Protein Calculated 74 Fluid: ml 1702-1998ml (1ml/kcal) Nutritional Problem 1. Problem Problem altered nutrition related labs Etiology hyperglycemia Signs/Symptoms: glucose 190 at admission Malnutrition Alert Is there a minimum of two criteria No selected? Query Text:Check all the applicable criteria. A minimum of two criteria are recommended for diagnosis of either severe or non-severe malnutrition. Malnutrition Related to Morbid Obesity Malnutrition related to morbid obesity No Intervention/Recommendation Comments 1. Resume pureed GIOVANNI diet after CT exam. Assist pt with meals. If glucose continue high, will consider adding CCHO diet. 2. Monitor PO intake, wt, labs and skin integrity 3. F/U as high risk in 2-3 days, 08/19-08/20 Expected Outcomes/Goals Expected Outcomes/Goals 1. PO intake to meet at least 75% of nutritional needs. 2. Wt stability, skin to remain intact, labs to approach WNL.
[2017-08-19] MEDS: D5-0.9%NS 1,000 ML IV SCH (16:35)
--- NOTE | 2017-08-19 16:59 | GI Progress Note ---
Subjective - Review of Systems Service Date: 08/19/17 Subjective: GI NOTE CONFUSED C/O ABD PAIN. NPO. IN ICU FOR ELEVATED TROPONINS. Objective - Results Result Diagrams: 08/19/17 09:59 08/19/17 09:59 Recent Labs: Laboratory Last Values WBC 10.8 Th/cmm (4.8-10.8) 08/19/17 09:59 RBC 4.07 Mil/cmm (3.80-5.20) 08/19/17 09:59 Hgb 12.6 gm/dL (12-16) 08/19/17 09:59 Hct 37.3 % (41.0-60) L 08/19/17 09:59 MCV 91.9 fl (81-100) 08/19/17 09:59 MCH 31.1 pg (27.0-31.0) H 08/19/17 09:59 MCHC Differential 33.8 pg (28.0-36.0) 08/19/17 09:59 RDW 14.3 % (11.5-20.0) 08/19/17 09:59 Plt Count 199 Th/cmm (150-400) 08/19/17 09:59 MPV 7.7 fl 08/19/17 09:59 Neutrophils % 78.3 % (40.0-80.0) 08/19/17 09:59 Lymphocytes % 15.6 % (20.0-50.0) L 08/19/17 09:59 Monocytes % 5.9 % (2.0-10.0) 08/19/17 09:59 Eosinophils % 0.1 % (0.0-5.0) 08/19/17 09:59 Basophils % 0.1 % (0.0-2.0) 08/19/17 09:59 PT 15.5 SECONDS (9.5-11.5) H 08/19/17 11:49 INR 1.46 (0.5-1.4) H 08/19/17 11:49 PTT (Actin FS) 34.3 SECONDS (26.0-38.0) 08/19/17 11:49 Specimen Source arterial 08/16/17 18:58 Sample Site rr 08/16/17 18:58 pH 7.38 (7.35-7.45) 08/16/17 18:58 pCO2 41.0 mmHg (35.0-45.0) 08/16/17 18:58 pO2 44.0 mmHg (80.0-100.0) L* 08/16/17 18:58 HCO3 23.9 mEq/L (20.0-26.0) 08/16/17 18:58 Base Excess -0.8 mEq/L (-3.0-3.0) 08/16/17 18:58 O2 Saturation 79.0 % (92.0-100.0) L 08/16/17 18:58 Kael Test y 08/16/17 18:58 Vent Rate N/A 08/16/17 18:58 Inspired O2 36 08/16/17 18:58 Tidal Volume N/A 08/16/17 18:58 PEEP N/A 08/16/17 18:58 Pressure (ins/psv/peep) N/A 08/16/17 18:58 Critical Value MM/JY 08/16/17 18:58 Sodium 139 mEq/L (136-145) 08/19/17 09:59 Potassium 4.5 mEq/L (3.5-5.1) 08/19/17 09:59 Chloride 111 mEq/L (98-107) H 08/19/17 09:59 Carbon Dioxide 18.0 mEq/L (21.0-31.0) L 08/19/17 09:59 Anion Gap 14.5 (7.0-16.0) 08/19/17 09:59 BUN 37 mg/dL (7-25) H 08/19/17 09:59 Creatinine 1.9 mg/dL (0.6-1.2) H 08/19/17 09:59 Est GFR ( Amer) TNP 08/19/17 09:59 Est GFR (Non-Af Amer) TNP 08/19/17 09:59 BUN/Creatinine Ratio 19.5 08/19/17 09:59 Glucose 137 mg/dL (70-105) H 08/19/17 09:59 Hemoglobin A1c % 5.1 % (4.0-6.0) 08/16/17 18:40 Calcium 7.6 mg/dL (8.6-10.3) L 08/19/17 09:59 Total Bilirubin 0.7 mg/dL (0.3-1.0) 08/19/17 09:59 AST 2915 U/L (13-39) H 08/19/17 09:59 ALT 1097 U/L (7-52) H 08/19/17 09:59 Alkaline Phosphatase 89 U/L (34-104) 08/19/17 09:59 Creatine Kinase 21 U/L (30-223) L 08/16/17 18:40 Troponin I 7.97 ng/mL (0.01-0.05) H* D 08/19/17 12:37 B-Natriuretic Peptide 163.0 pg/mL (5.0-100.0) H 08/16/17 18:40 Total Protein 5.5 gm/dL (6.0-8.3) L 08/19/17 09:59 Albumin 2.6 gm/dL (3.7-5.3) L 08/19/17 09:59 Globulin 2.9 gm/dL 08/19/17 09:59 Albumin/Globulin Ratio 0.9 (1.0-1.8) L 08/19/17 09:59 Triglycerides 149 mg/dL (<150) 08/19/17 12:37 Cholesterol 84 mg/dL (<200) 08/19/17 12:37 LDL Cholesterol Direct 47 mg/dL (75-193) L 08/19/17 12:37 HDL Cholesterol 18 mg/dL (23-92) L 08/19/17 12:37 Amylase 12 U/L (29-103) L 08/16/17 18:40 Lipase 6 U/L (11-82) L 08/16/17 18:40 TSH 1.72 uIU/ml (0.34-5.60) 08/19/17 09:59 Urine Source CATH 08/17/17 05:05 Urine Color YELLOW 08/17/17 05:05 Urine Clarity TURBID (CLEAR) H 08/17/17 05:05 Urine pH 5.5 (4.6 - 8.0) 08/17/17 05:05 Ur Specific [place] 1.020 (1.005-1.030) 08/17/17 05:05 Urine Protein TRACE mg/dL (NEGATIVE) 08/17/17 05:05 Urine Glucose (UA) NEGATIVE mg/dL (NEGATIVE) 08/17/17 05:05 Urine Ketones 15 mg/dL (NEGATIVE) H 08/17/17 05:05 Urine Blood NEGATIVE (NEGATIVE) 08/17/17 05:05 Urine Nitrate POSITIVE (NEGATIVE) H 08/17/17 05:05 Urine Bilirubin NEGATIVE (NEGATIVE) 08/17/17 05:05 Urine Urobilinogen 1.0 E.U./dL (0.2 - 1.0) 08/17/17 05:05 Ur Leukocyte Esterase MODERATE (NEGATIVE) H 08/17/17 05:05 Urine RBC 0-2 /hpf (0-5) 08/17/17 05:05 Urine WBC 50-100 /hpf (0-5) H 08/17/17 05:05 Ur Epithelial Cells MODERATE /lpf (FEW) 08/17/17 05:05 Urine Bacteria 4+ /hpf (NONE SEEN) H 08/17/17 05:05 - Physical Exam Vitals and I&O: Vital Signs Temp 97.5 F 08/19/17 15:00 Pulse 104 08/19/17 16:36 Resp 15 08/19/17 15:00 BP 93/51 08/19/17 16:36 Pulse Ox 97 08/19/17 15:00 Intake & Output 08/18/17 08/19/17 08/19/17 18:59 06:59 18:59 Intake Total 1050 0 Balance 1050 2050 Weight (lbs) 75.296 kg 74.843 kg Intake: Intake, IV Amount 1000 2050 Levofloxacin 250mg/50mL 50 250 mg In 50 ml @ 50 mls/ hr IV Q24HR [facility] Rx#: [id number] Sodium Chloride 0.9% 1, 1000 2000 000 ml @ 125 mls/hr IV . Q8H [facility] Rx#:[id number] Oral 50 0 Other: # Voids 2 3 # Bowel Movements 0 1 Stool Characteristics Formed Weight Source Bedscale Bedscale Active Medications: Current Medications Acetaminophen (Tylenol) 650 mg PO Q6H PRN PRN Reason: Pain (Mild) Stop: 10/16/17 02:01 Acetaminophen/Hydrocodone Bitart ([place] 5mg/325mg) 1 tab PO Q6H [facility] Stop: 10/15/17 21:29 Last Admin: 08/19/17 15:26 Dose: Not Given Albuterol Sulfate (Albuterol 2.5mg/3ml Neb Ud) 1.25 mg HHN Q2HRT PRN PRN Reason: Shortness of Breath Stop: 10/16/17 02:12 Last Admin: 08/17/17 07:14 Dose: 1.25 mg Ascorbic Acid (Vitamin C) 500 mg PO DAILY [facility] Stop: 10/16/17 08:59 Last Admin: 08/19/17 09:02 Dose: Not Given Carvedilol (Coreg) 6.25 mg PO BID [facility] Stop: 10/17/17 16:59 Last Admin: 08/19/17 16:36 Dose: Not Given Clopidogrel Bisulfate (Plavix) 75 mg PO DAILY [facility] Stop: 10/16/17 08:59 Last Admin: 08/19/17 09:03 Dose: Not Given Diltiazem HCl (Cardizem) 60 mg PO Q6HR [facility] Stop: 10/17/17 17:59 Last Admin: 08/19/17 12:25 Dose: Not Given Docusate Sodium (Colace) 100 mg PO BID [facility] Stop: 10/16/17 08:59 Last Admin: 08/19/17 16:36 Dose: Not Given Donepezil HCl (Aricept) 10 mg PO HS [facility] Stop: 10/15/17 21:59 Last Admin: 08/18/17 20:12 Dose: Not Given Enoxaparin Sodium (Lovenox) 30 mg SUBQ DAILY [facility] Stop: 10/18/17 11:44 Last Admin: 08/19/17 12:20 Dose: 30 mg Gabapentin (Neurontin) 600 mg PO Q6HR [facility] Stop: 10/16/17 05:59 Last Admin: 08/19/17 12:25 Dose: Not Given Hydromorphone HCl (Dilaudid) 1 mg IVP Q6H PRN PRN Reason: Pain (Moderate) Stop: 10/17/17 16:38 Last Admin: 08/18/17 17:05 Dose: 1 mg Hydromorphone HCl (Dilaudid) 2 mg IVP Q6H PRN PRN Reason: SEVERE PAIN Stop: 10/17/17 21:10 Last Admin: 08/19/17 12:15 Dose: 2 mg Levofloxacin (Levaquin Pb) 250 mg in 50 mls @ 50 mls/hr IV Q24HR [facility] Stop: 10/16/17 00:59 Last Infusion: 08/19/17 00:21 Dose: Infused Metronidazole (Flagyl) 500 mg in 100 mls @ 100 mls/hr IV Q12HR [facility] Stop: 10/18/17 20:59 Dextrose/Sodium Chloride (D5-0.9%Ns) 1,000 mls @ 125 mls/hr IV .Q8H [facility] Stop: 10/18/17 16:14 Last Admin: 08/19/17 16:35 Dose: 125 mls/hr Amikacin Sulfate 375 mg/ (Dextrose) 101.5 mls @ 100 mls/hr IV Q48HR [facility] Stop: 10/19/17 08:59 Levothyroxine Sodium (Synthroid) 0.025 mg PO DAILY@0730 [facility] Stop: 10/16/17 07:29 Last Admin: 08/19/17 06:39 Dose: Not Given Lorazepam (Ativan) 0.5 mg IVP Q6HR PRN; Protocol PRN Reason: Agitation Stop: 10/18/17 11:03 Last Admin: 08/19/17 15:25 Dose: 0.5 mg Miscellaneous (Lovenox Subq Per Pharmacy) 1 [facility] PRN PRN PRN Reason: PROTOCOL Stop: 10/18/17 11:40 Miscellaneous (Amikacin Iv Per Pharmacy) 1 [facility] PRN PRN PRN Reason: Protocol Stop: 10/18/17 15:52 Montelukast Sodium (Singulair) 10 mg PO DAILY [facility] Stop: 10/16/17 08:59 Last Admin: 08/19/17 09:04 Dose: Not Given Morphine Sulfate (Morphine) 1 mg IVP Q4HR PRN PRN Reason: Moderate Pain Stop: 10/15/17 21:35 Last Admin: 08/18/17 14:02 Dose: 1 mg Mupirocin (Bactroban Oint) 1 appl NS BID [facility] Stop: 08/23/17 09:01 Last Admin: 08/19/17 16:36 Dose: 1 appl Ondansetron HCl (Zofran) 4 mg IV Q6H PRN PRN Reason: Nausea / Vomiting Stop: 10/15/17 21:34 Last Admin: 08/18/17 16:26 Dose: 4 mg Pantoprazole Sodium (Protonix) 40 mg PO QDAC [facility] Stop: 10/16/17 07:29 Last Admin: 08/19/17 06:39 Dose: Not Given Prednisone (Deltasone) 5 mg PO DAILY [facility] Stop: 10/16/17 08:59 Last Admin: 08/19/17 09:04 Dose: Not Given General: No acute distress, Mild distress Neck: Supple Cardiovascular: Regular rate Lungs: Clear to auscultation Abdomen: Bowel sounds, Soft, Tender (DIFFUSE), Distended (MILD) Assessment/Plan - Assessment Assessment: 1. ABD PAIN WITH CT SHOWED SIGMOID DIVERTICULITIS. 2. HIATAL HERNIA. 3. CHOLELITHIASIS, LESS LIKELY ACUTE CHOLECYSTITIS. 4. CHEST PAIN WITH ELEVATED TROPONIN - LIKELY ACS/NSTEMI. - Plan Plan: 1. ABX. 2. NPO. 3. PAIN CONTROL MEASURES. 4. IVF. 5. PER CARDS. 6. FAILED SWALLOW EVAL. POLST OUTLINED WISH FOR DNR AND NO ARTIFICIAL FEEDING.
[2017-08-19] MEDS: metroNIDAZOLE 500mg/NS 100mL 500 MG/100 ML BAG IV SCH (20:53)
[2017-08-20] MEDS: D5-0.9%NS 1,000 ML IV SCH ×4 (00:35→17:00)
[2017-08-20] MEDS: Levofloxacin 250mg/50mL 250 MG/50 ML BAG IV SCH (00:46)
[2017-08-20] MEDS: Diltiazem 30 mg Tab PO SCH ×4 (00:48→18:27)
[2017-08-20] MEDS: Morphine Sulfate 2 mg/mL 1mL Syr IVP PRN ×2 (01:28→05:25)
[2017-08-20] MEDS ORDERED: Enoxaparin Subq per Pharmacy MC PRN (03:24)
[2017-08-20] MEDS ORDERED: Diltiazem 5 mg/mL 5mL Vial IVP PRN (03:26)
[2017-08-20] MEDS: Hydrocodone/APAP 5mg/325mg Tab PO SCH ×4 (03:30→22:15)
[2017-08-20] MEDS: Enoxaparin 80 mg/0.8 mL 0.8mL Syr SUBQ SCH ×2 (04:00→08:26)
--- NOTE | 2017-08-20 05:10 | Progress Notes ---
DATE: 08/19/2017 SUBJECTIVE: The patient was seen in her room. The patient is asleep but easily arousable. The patient is a poor historian. According to nurses, the patient has episodes of screaming. Otherwise, the patient is in no acute distress. OBJECTIVE: VITAL SIGNS: Temperature 97.9, heart rate of 95, blood pressure 100/56, respirations of 18, and 100% on room air. HEENT: Head is atraumatic and normocephalic. Eyes: Bilateral conjunctivae are clear. Bilateral pupils are equally round and reactive. NECK: Supple. No JVD. CARDIOVASCULAR: S1 and S2, without murmur. PULMONARY: Clear to auscultation. GASTROINTESTINAL: Soft and nontender without guarding. Positive bowel sounds. MUSCULOSKELETAL: No clubbing, no cyanosis noted. ASSESSMENT: 1. Urinary tract infection. 2. Hypertension. 3. Hyperlipidemia. 4. Diabetes. 5. Diverticulitis. 6. Dementia. 7. Coronary artery disease. PLAN: The patient is currently n.p.o. and pending for swallow evaluation. We will provide anxiolytic as needed via IV. Treatment plans were discussed with the patient's nurse. Treatment plans were discussed with Dr. Cheek. JOB# [id number]
[2017-08-20] MEDS: Levothyroxine 0.025 Mg Tab PO SCH (06:51)
[2017-08-20 08:00] LABS: ALBUMIN 2.5 gm/dL (3.7-5.3); ALKALINE PHOSPHATASE 75 U/L (34-104); ANION GAP 14.8 (7.0-16.0); BILIRUBIN,TOTAL 0.9 mg/dL (0.3-1.0); CARBON DIOXIDE 15.4 mEq/L (21.0-31.0); CHLORIDE 116 mEq/L (98-107); POTASSIUM SERUM 4.2 mEq/L (3.5-5.1); SGOT 1559 U/L (13-39); SGPT/ALT 936 U/L (7-52); SODIUM SERUM 142 mEq/L (136-145)
[2017-08-20] MEDS: Atorvastatin Calcium 10 MG TAB PO SCH (08:27)
[2017-08-20 08:52] LABS: BUN - UREA NITROGEN 40 mg/dL (7-25); CALCIUM SERUM 7.3 mg/dL (8.6-10.3); CREATININE - SERUM 1.8 mg/dL (0.6-1.2); PHOSPHOROUS 1.6 mg/dL (2.5-5.0)
[2017-08-20 08:53] LABS: GLUCOSE 239 mg/dL (70-105)
[2017-08-20 08:55] LABS: ALB/GLOB RATIO 0.9 (1.0-1.8); TOTAL PROTEIN,SERUM 5.4 gm/dL (6.0-8.3)
[2017-08-20] MEDS: HYDROmorphone 2 mg/mL 1mL Vial IVP PRN ×2 (09:45→23:10)
[2017-08-20] MEDS: metroNIDAZOLE 500mg/NS 100mL 500 MG/100 ML BAG IV SCH ×2 (09:50→20:46)
--- NOTE | 2017-08-20 10:04 | GI Progress Note ---
Subjective - Review of Systems Service Date: 08/20/17 Subjective: GI NOTE CONFUSED C/O ABD PAIN. NPO. IN ICU FOR ELEVATED TROPONINS. Objective - Results Result Diagrams: 08/19/17 09:59 08/20/17 05:00 Recent Labs: Laboratory Last Values WBC 10.8 Th/cmm (4.8-10.8) 08/19/17 09:59 RBC 4.07 Mil/cmm (3.80-5.20) 08/19/17 09:59 Hgb 12.6 gm/dL (12-16) 08/19/17 09:59 Hct 37.3 % (41.0-60) L 08/19/17 09:59 MCV 91.9 fl (81-100) 08/19/17 09:59 MCH 31.1 pg (27.0-31.0) H 08/19/17 09:59 MCHC Differential 33.8 pg (28.0-36.0) 08/19/17 09:59 RDW 14.3 % (11.5-20.0) 08/19/17 09:59 Plt Count 199 Th/cmm (150-400) 08/19/17 09:59 MPV 7.7 fl 08/19/17 09:59 Neutrophils % 78.3 % (40.0-80.0) 08/19/17 09:59 Lymphocytes % 15.6 % (20.0-50.0) L 08/19/17 09:59 Monocytes % 5.9 % (2.0-10.0) 08/19/17 09:59 Eosinophils % 0.1 % (0.0-5.0) 08/19/17 09:59 Basophils % 0.1 % (0.0-2.0) 08/19/17 09:59 PT 15.5 SECONDS (9.5-11.5) H 08/19/17 11:49 INR 1.46 (0.5-1.4) H 08/19/17 11:49 PTT (Actin FS) 34.3 SECONDS (26.0-38.0) 08/19/17 11:49 Specimen Source arterial 08/16/17 18:58 Sample Site rr 08/16/17 18:58 pH 7.38 (7.35-7.45) 08/16/17 18:58 pCO2 41.0 mmHg (35.0-45.0) 08/16/17 18:58 pO2 44.0 mmHg (80.0-100.0) L* 08/16/17 18:58 HCO3 23.9 mEq/L (20.0-26.0) 08/16/17 18:58 Base Excess -0.8 mEq/L (-3.0-3.0) 08/16/17 18:58 O2 Saturation 79.0 % (92.0-100.0) L 08/16/17 18:58 Kael Test y 08/16/17 18:58 Vent Rate N/A 08/16/17 18:58 Inspired O2 36 08/16/17 18:58 Tidal Volume N/A 08/16/17 18:58 PEEP N/A 08/16/17 18:58 Pressure (ins/psv/peep) N/A 08/16/17 18:58 Critical Value MM/JY 08/16/17 18:58 Sodium 142 mEq/L (136-145) 08/20/17 05:00 Potassium 4.2 mEq/L (3.5-5.1) 08/20/17 05:00 Chloride 116 mEq/L (98-107) H 08/20/17 05:00 Carbon Dioxide 15.4 mEq/L (21.0-31.0) L 08/20/17 05:00 Anion Gap 14.8 (7.0-16.0) 08/20/17 05:00 BUN 40 mg/dL (7-25) H 08/20/17 05:00 Creatinine 1.8 mg/dL (0.6-1.2) H 08/20/17 05:00 Est GFR ( Amer) TNP 08/20/17 05:00 Est GFR (Non-Af Amer) TNP 08/20/17 05:00 BUN/Creatinine Ratio 22.2 08/20/17 05:00 Glucose 239 mg/dL (70-105) H D 08/20/17 05:00 Hemoglobin A1c % 5.1 % (4.0-6.0) 08/16/17 18:40 Calcium 7.3 mg/dL (8.6-10.3) L 08/20/17 05:00 Phosphorus 1.6 mg/dL (2.5-5.0) L 08/20/17 05:00 Total Bilirubin 0.9 mg/dL (0.3-1.0) 08/20/17 05:00 AST 1559 U/L (13-39) H 08/20/17 05:00 ALT 936 U/L (7-52) H 08/20/17 05:00 Alkaline Phosphatase 75 U/L (34-104) 08/20/17 05:00 Creatine Kinase 21 U/L (30-223) L 08/16/17 18:40 Troponin I 5.84 ng/mL (0.01-0.05) H* D 08/20/17 05:00 B-Natriuretic Peptide 163.0 pg/mL (5.0-100.0) H 08/16/17 18:40 Total Protein 5.4 gm/dL (6.0-8.3) L 08/20/17 05:00 Albumin 2.5 gm/dL (3.7-5.3) L 08/20/17 05:00 Globulin 2.9 gm/dL 08/20/17 05:00 Albumin/Globulin Ratio 0.9 (1.0-1.8) L 08/20/17 05:00 Triglycerides 149 mg/dL (<150) 08/19/17 12:37 Cholesterol 84 mg/dL (<200) 08/19/17 12:37 LDL Cholesterol Direct 47 mg/dL (75-193) L 08/19/17 12:37 HDL Cholesterol 18 mg/dL (23-92) L 08/19/17 12:37 Amylase 12 U/L (29-103) L 08/16/17 18:40 Lipase 6 U/L (11-82) L 08/16/17 18:40 TSH 1.72 uIU/ml (0.34-5.60) 08/19/17 09:59 Urine Source CATH 08/17/17 05:05 Urine Color YELLOW 08/17/17 05:05 Urine Clarity TURBID (CLEAR) H 08/17/17 05:05 Urine pH 5.5 (4.6 - 8.0) 08/17/17 05:05 Ur Specific [place] 1.020 (1.005-1.030) 08/17/17 05:05 Urine Protein TRACE mg/dL (NEGATIVE) 08/17/17 05:05 Urine Glucose (UA) NEGATIVE mg/dL (NEGATIVE) 08/17/17 05:05 Urine Ketones 15 mg/dL (NEGATIVE) H 08/17/17 05:05 Urine Blood NEGATIVE (NEGATIVE) 08/17/17 05:05 Urine Nitrate POSITIVE (NEGATIVE) H 08/17/17 05:05 Urine Bilirubin NEGATIVE (NEGATIVE) 08/17/17 05:05 Urine Urobilinogen 1.0 E.U./dL (0.2 - 1.0) 08/17/17 05:05 Ur Leukocyte Esterase MODERATE (NEGATIVE) H 08/17/17 05:05 Urine RBC 0-2 /hpf (0-5) 08/17/17 05:05 Urine WBC 50-100 /hpf (0-5) H 08/17/17 05:05 Ur Epithelial Cells MODERATE /lpf (FEW) 08/17/17 05:05 Urine Bacteria 4+ /hpf (NONE SEEN) H 08/17/17 05:05 - Physical Exam Vitals and I&O: Vital Signs Temp 97.2 F 08/20/17 08:32 Pulse 102 08/20/17 08:32 Resp 25 08/20/17 08:32 BP 100/57 08/20/17 08:32 Pulse Ox 99 08/20/17 08:32 Intake & Output 08/19/17 08/20/17 08/20/17 18:59 06:59 18:59 Intake Total 0 1100 1070.25 Balance 0 1100 1070.25 Weight (lbs) 79.407 kg 78.471 kg Intake: Intake, IV Amount 1100 1070.25 Amikacin 375 mg In 101.5 Dextrose 5% 100 ml @ 100 mls/hr IV Q48HR [facility] Rx#: [id number] D5-0.9%Ns 1,000 ml @ 125 1000 968.75 mls/hr IV .Q8H [facility] Rx#: [id number] metroNIDAZOLE 500mg/NS 100 100mL 500 mg In 100 ml @ 100 mls/hr IV Q12HR [facility] Rx#:[id number] Oral 0 Other: # Voids 3 3 # Bowel Movements 0 0 Weight Source Bedscale Bedscale Active Medications: Current Medications Acetaminophen (Tylenol) 650 mg PO Q6H PRN PRN Reason: Pain (Mild) Stop: 10/16/17 02:01 Acetaminophen/Hydrocodone Bitart ([place] 5mg/325mg) 1 tab PO Q6H [facility] Stop: 10/15/17 21:29 Last Admin: 08/20/17 08:29 Dose: Not Given Albuterol Sulfate (Albuterol 2.5mg/3ml Neb Ud) 1.25 mg HHN Q2HRT PRN PRN Reason: Shortness of Breath Stop: 10/16/17 02:12 Last Admin: 08/17/17 07:14 Dose: 1.25 mg Ascorbic Acid (Vitamin C) 500 mg PO DAILY [facility] Stop: 10/16/17 08:59 Last Admin: 08/20/17 08:27 Dose: Not Given Atorvastatin Calcium (Lipitor) 10 mg PO DAILY [facility]; Protocol Stop: 10/19/17 08:59 Last Admin: 08/20/17 08:27 Dose: Not Given Carvedilol (Coreg) 6.25 mg PO BID [facility] Stop: 10/17/17 16:59 Last Admin: 08/20/17 08:28 Dose: Not Given Clopidogrel Bisulfate (Plavix) 75 mg PO DAILY [facility] Stop: 10/16/17 08:59 Last Admin: 08/20/17 08:28 Dose: Not Given Diltiazem HCl (Cardizem) 60 mg PO Q6HR [facility] Stop: 10/17/17 17:59 Last Admin: 08/20/17 06:24 Dose: Not Given Diltiazem HCl (Cardizem) 5 mg IVP Q6H PRN PRN Reason: HR more than 125bpm Stop: 10/19/17 03:29 Docusate Sodium (Colace) 100 mg PO BID [facility] Stop: 10/16/17 08:59 Last Admin: 08/20/17 08:28 Dose: Not Given Donepezil HCl (Aricept) 10 mg PO HS [facility] Stop: 10/15/17 21:59 Last Admin: 08/19/17 21:00 Dose: Not Given Enoxaparin Sodium (Lovenox) 80 mg SUBQ Q24H [facility] Stop: 10/19/17 03:59 Last Admin: 08/20/17 04:00 Dose: 80 mg Enoxaparin Sodium (Lovenox) 80 mg SUBQ DAILY [facility] Stop: 10/19/17 08:59 Last Admin: 08/20/17 08:26 Dose: Not Given Gabapentin (Neurontin) 600 mg PO Q6HR [facility] Stop: 10/16/17 05:59 Last Admin: 08/20/17 06:24 Dose: Not Given Hydromorphone HCl (Dilaudid) 1 mg IVP Q6H PRN PRN Reason: Pain (Moderate) Stop: 10/17/17 16:38 Last Admin: 08/18/17 17:05 Dose: 1 mg Hydromorphone HCl (Dilaudid) 2 mg IVP Q6H PRN PRN Reason: SEVERE PAIN Stop: 10/17/17 21:10 Last Admin: 08/20/17 09:45 Dose: 2 mg Levofloxacin (Levaquin Pb) 250 mg in 50 mls @ 50 mls/hr IV Q24HR [facility] Stop: 10/16/17 00:59 Last Admin: 08/20/17 00:46 Dose: 50 mls/hr Metronidazole (Flagyl) 500 mg in 100 mls @ 100 mls/hr IV Q12HR [facility] Stop: 10/18/17 20:59 Last Admin: 08/20/17 09:50 Dose: 100 mls/hr Dextrose/Sodium Chloride (D5-0.9%Ns) 1,000 mls @ 125 mls/hr IV .Q8H [facility] Stop: 10/18/17 16:14 Last Admin: 08/20/17 08:26 Dose: 125 mls/hr Amikacin Sulfate 375 mg/ (Dextrose) 101.5 mls @ 100 mls/hr IV Q48HR [facility] Stop: 10/19/17 08:59 Last Infusion: 08/20/17 09:45 Dose: Infused Levothyroxine Sodium (Synthroid) 0.025 mg PO DAILY@0730 [facility] Stop: 10/16/17 07:29 Last Admin: 08/20/17 06:51 Dose: Not Given Lorazepam (Ativan) 0.5 mg IVP Q6HR PRN; Protocol PRN Reason: Agitation Stop: 10/18/17 11:03 Last Admin: 08/20/17 07:45 Dose: 0.5 mg Miscellaneous (Amikacin Iv Per Pharmacy) 1 ea PRN PRN PRN Reason: Protocol Stop: 10/18/17 15:52 Miscellaneous (Lovenox Subq Per Pharmacy) 1 ea PRN PRN PRN Reason: PROTOCOL Stop: 10/18/17 11:40 Montelukast Sodium (Singulair) 10 mg PO DAILY [facility] Stop: 10/16/17 08:59 Last Admin: 08/20/17 08:28 Dose: Not Given Morphine Sulfate (Morphine) 1 mg IVP Q4HR PRN PRN Reason: Moderate Pain Stop: 10/15/17 21:35 Last Admin: 08/20/17 05:25 Dose: 1 mg Mupirocin (Bactroban Oint) 1 appl NS BID [facility] Stop: 08/23/17 09:01 Last Admin: 08/20/17 08:25 Dose: 1 appl Ondansetron HCl (Zofran) 4 mg IV Q6H PRN PRN Reason: Nausea / Vomiting Stop: 10/15/17 21:34 Last Admin: 08/18/17 16:26 Dose: 4 mg Pantoprazole Sodium (Protonix) 40 mg IVP DAILY [facility] Stop: 10/19/17 08:59 Last Admin: 08/20/17 08:25 Dose: 40 mg Prednisone (Deltasone) 5 mg PO DAILY [facility] Stop: 10/16/17 08:59 Last Admin: 08/20/17 08:29 Dose: Not Given General: Mild distress (confused) Neck: Supple Cardiovascular: Regular rate Lungs: Clear to auscultation Abdomen: Bowel sounds, Soft, Tender (LLQ), Distended (MILD) Assessment/Plan - Assessment Assessment: 1. ABD PAIN WITH CT SHOWED SIGMOID DIVERTICULITIS. MAY ALSO HAVE ISCHEMIC COLITIS. 2. HIATAL HERNIA. 3. CHOLELITHIASIS, LESS LIKELY ACUTE CHOLECYSTITIS. 4. CHEST PAIN WITH ELEVATED TROPONIN - LIKELY ACS/NSTEMI. EF 25%. 5. ELEVATED TRANSAMINASES - R/O ISCHEMIC HEPATITIS VS. CONGESTION FROM CHF. - Plan Plan: 1. ABX. 2. NPO. 3. PAIN CONTROL MEASURES. 4. IVF. ADD TPN. 5. PER CARDS TO OPTIMIZE CARDIAC FUNCTION. 6. FAILED SWALLOW EVAL. POLST OUTLINED WISH FOR DNR AND NO ARTIFICIAL FEEDING. 7. CHECK LIVER LABS AND ABD US.
--- NOTE | 2017-08-20 11:13 | General Progress Note ---
Subjective - Review of Systems Service Date: 08/20/17 Events since last encounter: patient c/o abd pain seems confused no fever increse triponin sob Objective - Results Result Diagrams: 08/19/17 09:59 08/20/17 05:00 Recent Labs: Laboratory Last Values WBC 10.8 Th/cmm (4.8-10.8) 08/19/17 09:59 RBC 4.07 Mil/cmm (3.80-5.20) 08/19/17 09:59 Hgb 12.6 gm/dL (12-16) 08/19/17 09:59 Hct 37.3 % (41.0-60) L 08/19/17 09:59 MCV 91.9 fl (81-100) 08/19/17 09:59 MCH 31.1 pg (27.0-31.0) H 08/19/17 09:59 MCHC Differential 33.8 pg (28.0-36.0) 08/19/17 09:59 RDW 14.3 % (11.5-20.0) 08/19/17 09:59 Plt Count 199 Th/cmm (150-400) 08/19/17 09:59 MPV 7.7 fl 08/19/17 09:59 Neutrophils % 78.3 % (40.0-80.0) 08/19/17 09:59 Lymphocytes % 15.6 % (20.0-50.0) L 08/19/17 09:59 Monocytes % 5.9 % (2.0-10.0) 08/19/17 09:59 Eosinophils % 0.1 % (0.0-5.0) 08/19/17 09:59 Basophils % 0.1 % (0.0-2.0) 08/19/17 09:59 PT 15.5 SECONDS (9.5-11.5) H 08/19/17 11:49 INR 1.46 (0.5-1.4) H 08/19/17 11:49 PTT (Actin FS) 34.3 SECONDS (26.0-38.0) 08/19/17 11:49 Specimen Source arterial 08/16/17 18:58 Sample Site rr 08/16/17 18:58 pH 7.38 (7.35-7.45) 08/16/17 18:58 pCO2 41.0 mmHg (35.0-45.0) 08/16/17 18:58 pO2 44.0 mmHg (80.0-100.0) L* 08/16/17 18:58 HCO3 23.9 mEq/L (20.0-26.0) 08/16/17 18:58 Base Excess -0.8 mEq/L (-3.0-3.0) 08/16/17 18:58 O2 Saturation 79.0 % (92.0-100.0) L 08/16/17 18:58 Kael Test y 08/16/17 18:58 Vent Rate N/A 08/16/17 18:58 Inspired O2 36 08/16/17 18:58 Tidal Volume N/A 08/16/17 18:58 PEEP N/A 08/16/17 18:58 Pressure (ins/psv/peep) N/A 08/16/17 18:58 Critical Value MM/JY 08/16/17 18:58 Sodium 142 mEq/L (136-145) 08/20/17 05:00 Potassium 4.2 mEq/L (3.5-5.1) 08/20/17 05:00 Chloride 116 mEq/L (98-107) H 08/20/17 05:00 Carbon Dioxide 15.4 mEq/L (21.0-31.0) L 08/20/17 05:00 Anion Gap 14.8 (7.0-16.0) 08/20/17 05:00 BUN 40 mg/dL (7-25) H 08/20/17 05:00 Creatinine 1.8 mg/dL (0.6-1.2) H 08/20/17 05:00 Est GFR ( Amer) TNP 08/20/17 05:00 Est GFR (Non-Af Amer) NDP 08/20/17 05:00 BUN/Creatinine Ratio 22.2 08/20/17 05:00 Glucose 239 mg/dL (70-105) H D 08/20/17 05:00 Hemoglobin A1c % 5.1 % (4.0-6.0) 08/16/17 18:40 Calcium 7.3 mg/dL (8.6-10.3) L 08/20/17 05:00 Phosphorus 1.6 mg/dL (2.5-5.0) L 08/20/17 05:00 Total Bilirubin 0.9 mg/dL (0.3-1.0) 08/20/17 05:00 AST 1559 U/L (13-39) H 08/20/17 05:00 ALT 936 U/L (7-52) H 08/20/17 05:00 Alkaline Phosphatase 75 U/L (34-104) 08/20/17 05:00 Creatine Kinase 21 U/L (30-223) L 08/16/17 18:40 Troponin I 5.84 ng/mL (0.01-0.05) H* D 08/20/17 05:00 B-Natriuretic Peptide 163.0 pg/mL (5.0-100.0) H 08/16/17 18:40 Total Protein 5.4 gm/dL (6.0-8.3) L 08/20/17 05:00 Albumin 2.5 gm/dL (3.7-5.3) L 08/20/17 05:00 Globulin 2.9 gm/dL 08/20/17 05:00 Albumin/Globulin Ratio 0.9 (1.0-1.8) L 08/20/17 05:00 Triglycerides 149 mg/dL (<150) 08/19/17 12:37 Cholesterol 84 mg/dL (<200) 08/19/17 12:37 LDL Cholesterol Direct 47 mg/dL (75-193) L 08/19/17 12:37 HDL Cholesterol 18 mg/dL (23-92) L 08/19/17 12:37 Amylase 12 U/L (29-103) L 08/16/17 18:40 Lipase 6 U/L (11-82) L 08/16/17 18:40 TSH 1.72 uIU/ml (0.34-5.60) 08/19/17 09:59 Urine Source CATH 08/17/17 05:05 Urine Color YELLOW 08/17/17 05:05 Urine Clarity TURBID (CLEAR) H 08/17/17 05:05 Urine pH 5.5 (4.6 - 8.0) 08/17/17 05:05 Ur Specific [place] 1.020 (1.005-1.030) 08/17/17 05:05 Urine Protein TRACE mg/dL (NEGATIVE) 08/17/17 05:05 Urine Glucose (UA) NEGATIVE mg/dL (NEGATIVE) 08/17/17 05:05 Urine Ketones 15 mg/dL (NEGATIVE) H 08/17/17 05:05 Urine Blood NEGATIVE (NEGATIVE) 08/17/17 05:05 Urine Nitrate POSITIVE (NEGATIVE) H 08/17/17 05:05 Urine Bilirubin NEGATIVE (NEGATIVE) 08/17/17 05:05 Urine Urobilinogen 1.0 E.U./dL (0.2 - 1.0) 08/17/17 05:05 Ur Leukocyte Esterase MODERATE (NEGATIVE) H 08/17/17 05:05 Urine RBC 0-2 /hpf (0-5) 08/17/17 05:05 Urine WBC 50-100 /hpf (0-5) H 08/17/17 05:05 Ur Epithelial Cells MODERATE /lpf (FEW) 08/17/17 05:05 Urine Bacteria 4+ /hpf (NONE SEEN) H 08/17/17 05:05 - Physical Exam Vitals and I&O: Vital Signs Temp 97.2 F 08/20/17 08:32 Pulse 102 08/20/17 08:32 Resp 25 08/20/17 08:32 BP 100/57 08/20/17 08:32 Pulse Ox 99 08/20/17 08:32 Intake & Output 08/19/17 08/20/17 08/20/17 18:59 06:59 18:59 Intake Total 0 1100 1070.25 Balance 0 1100 1070.25 Weight (lbs) 79.407 kg 78.471 kg Intake: Intake, IV Amount 1100 1070.25 Amikacin 375 mg In 101.5 Dextrose 5% 100 ml @ 100 mls/hr IV Q48HR [facility] Rx#: [id number] D5-0.9%Ns 1,000 ml @ 125 1000 968.75 mls/hr IV .Q8H [facility] Rx#: [id number] metroNIDAZOLE 500mg/NS 100 100mL 500 mg In 100 ml @ 100 mls/hr IV Q12HR [facility] Rx#:[id number] Oral 0 Other: # Voids 3 3 # Bowel Movements 0 0 Weight Source Bedscale Bedscale Active Medications: Current Medications Acetaminophen (Tylenol) 650 mg PO Q6H PRN PRN Reason: Pain (Mild) Stop: 08/27/18 02:01 Acetaminophen/Hydrocodone Bitart ([place] 5mg/325mg) 1 tab PO Q6H [facility] Stop: 10/15/17 21:29 Last Admin: 08/20/17 08:29 Dose: Not Given Albuterol Sulfate (Albuterol 2.5mg/3ml Neb Ud) 1.25 mg HHN Q2HRT PRN PRN Reason: Shortness of Breath Stop: 10/16/17 02:12 Last Admin: 08/17/17 07:14 Dose: 1.25 mg Ascorbic Acid (Vitamin C) 500 mg PO DAILY [facility] Stop: 10/16/17 08:59 Last Admin: 08/20/17 08:27 Dose: Not Given Atorvastatin Calcium (Lipitor) 10 mg PO DAILY [facility]; Protocol Stop: 10/19/17 08:59 Last Admin: 08/20/17 08:27 Dose: Not Given Carvedilol (Coreg) 6.25 mg PO BID [facility] Stop: 10/17/17 16:59 Last Admin: 08/20/17 08:28 Dose: Not Given Clopidogrel Bisulfate (Plavix) 75 mg PO DAILY [facility] Stop: 10/16/17 08:59 Last Admin: 08/20/17 08:28 Dose: Not Given Diltiazem HCl (Cardizem) 60 mg PO Q6HR [facility] Stop: 10/17/17 17:59 Last Admin: 08/20/17 06:24 Dose: Not Given Diltiazem HCl (Cardizem) 5 mg IVP Q6H PRN PRN Reason: HR more than 125bpm Stop: 10/19/17 03:29 Docusate Sodium (Colace) 100 mg PO BID [facility] Stop: 10/16/17 08:59 Last Admin: 08/20/17 08:28 Dose: Not Given Donepezil HCl (Aricept) 10 mg PO HS [facility] Stop: 10/15/17 21:59 Last Admin: 08/19/17 21:00 Dose: Not Given Enoxaparin Sodium (Lovenox) 80 mg SUBQ Q24H [facility] Stop: 10/19/17 03:59 Last Admin: 08/20/17 04:00 Dose: 80 mg Enoxaparin Sodium (Lovenox) 80 mg SUBQ DAILY [facility] Stop: 10/19/17 08:59 Last Admin: 08/20/17 08:26 Dose: Not Given Gabapentin (Neurontin) 600 mg PO Q6HR [facility] Stop: 10/16/17 05:59 Last Admin: 08/20/17 06:24 Dose: Not Given Hydromorphone HCl (Dilaudid) 1 mg IVP Q6H PRN PRN Reason: Pain (Moderate) Stop: 10/17/17 16:38 Last Admin: 08/18/17 17:05 Dose: 1 mg Hydromorphone HCl (Dilaudid) 2 mg IVP Q6H PRN PRN Reason: SEVERE PAIN Stop: 10/17/17 21:10 Last Admin: 08/20/17 09:45 Dose: 2 mg Levofloxacin (Levaquin Pb) 250 mg in 50 mls @ 50 mls/hr IV Q24HR [facility] Stop: 10/16/17 00:59 Last Admin: 08/20/17 00:46 Dose: 50 mls/hr Metronidazole (Flagyl) 500 mg in 100 mls @ 100 mls/hr IV Q12HR [facility] Stop: 10/18/17 20:59 Last Admin: 08/20/17 09:50 Dose: 100 mls/hr Dextrose/Sodium Chloride (D5-0.9%Ns) 1,000 mls @ 125 mls/hr IV .Q8H [facility] Stop: 10/18/17 16:14 Last Admin: 08/20/17 08:26 Dose: 125 mls/hr Amikacin Sulfate 375 mg/ (Dextrose) 101.5 mls @ 100 mls/hr IV Q48HR [facility] Stop: 10/19/17 08:59 Last Infusion: 08/20/17 09:45 Dose: Infused Levothyroxine Sodium (Synthroid) 0.025 mg PO DAILY@0730 [facility] Stop: 10/16/17 07:29 Last Admin: 08/20/17 06:51 Dose: Not Given Lorazepam (Ativan) 0.5 mg IVP Q6HR PRN; Protocol PRN Reason: Agitation Stop: 10/18/17 11:03 Last Admin: 08/20/17 07:45 Dose: 0.5 mg Miscellaneous (Amikacin Iv Per Pharmacy) 1 ea PRN PRN PRN Reason: Protocol Stop: 10/18/17 15:52 Miscellaneous (Lovenox Subq Per Pharmacy) 1 ea PRN PRN PRN Reason: PROTOCOL Stop: 10/18/17 11:40 Miscellaneous (Tpn Per Pharmacy) 1 ea MC PRN PRN PRN Reason: PROTOCOL Stop: 10/19/17 10:04 Montelukast Sodium (Singulair) 10 mg PO DAILY [facility] Stop: 10/16/17 08:59 Last Admin: 08/20/17 08:28 Dose: Not Given Morphine Sulfate (Morphine) 1 mg IVP Q4HR PRN PRN Reason: Moderate Pain Stop: 10/15/17 21:35 Last Admin: 08/20/17 05:25 Dose: 1 mg Mupirocin (Bactroban Oint) 1 appl NS BID [facility] Stop: 08/23/17 09:01 Last Admin: 08/20/17 08:25 Dose: 1 appl Ondansetron HCl (Zofran) 4 mg IV Q6H PRN PRN Reason: Nausea / Vomiting Stop: 10/15/17 21:34 Last Admin: 08/18/17 16:26 Dose: 4 mg Pantoprazole Sodium (Protonix) 40 mg IVP DAILY [facility] Stop: 10/19/17 08:59 Last Admin: 08/20/17 08:25 Dose: 40 mg Prednisone (Deltasone) 5 mg PO DAILY [facility] Stop: 10/16/17 08:59 Last Admin: 08/20/17 08:29 Dose: Not Given General: Mild distress (confused) Neck: Supple Cardiovascular: Regular rate Lungs: Clear to auscultation Abdomen: Bowel sounds, Soft, Tender (LLQ), Distended (MILD) Assessment/Plan - Assessment Assessment: abdominal pain gastroenteritis cad copd pud gerd dementia - Plan Plan: iv vanco as per id cbc/bmp in am continue the rest of the orders Nutritional Asmnt/Malnutr-PDOC - Dietary Evaluation Malnutrition Findings (Please click <Entered> for more info): Nutritional Asmnt/Malnutrition Start: 08/17/17 14: 47 Text: Status: Complete Freq: Protocol: Document 08/17/17 14:47 BHARATI (Rec: 08/17/17 15:32 [email or web address]) Nutritional Asmnt/Malnutrition Patient General Information Nutritional Screening High Risk Diagnosis elevated troponin, hypoxia, possible PNA Pertinent Medical Hx/Surgical Hx HTN, CAD, asthma/COPD, PUD/ GERD, ESRD, dementia Subjective Information Pt seen on mask at time of visit. Pt was NPO for CT scheduled today, no PO intake information available. Current Diet Order/ Nutrition Support NPO Pertinent Medications vit C, colace, levaquin, synthorid, zofran, nacl 0.9%, piperacillin, protonix Pertinent Labs 08/16 Na 135, Glucose 190, A1c 5.1 Nutritional Hx/Data Height 1.63 m Height (Calculated Centimeters) 162.6 Current Weight (lbs) 73.936 kg Weight (Calculated Kilograms) 73.9 Weight (Calculated Grams) 92241.6 [place] Body Weight 120 Body Mass Index (BMI) 27.9 Weight Status Overweight GI Symptoms GI Symptoms None Last BM none Difficult in: None Skin Integrity/Comment: reddened to coccyx, buttocks Estimated Nutritional Goals BEE in Kcals: Using Current wt Calories/Kcals/Kg 23-27 Kcals Calculated [id number] Protein g/k Protein Calculated 74 Fluid: ml 1702-1998ml (1ml/kcal) Nutritional Problem 1. Problem Problem altered nutrition related labs Etiology hyperglycemia Signs/Symptoms: glucose 190 at admission Malnutrition Alert Is there a minimum of two criteria No selected? Query Text:Check all the applicable criteria. A minimum of two criteria are recommended for diagnosis of either severe or non-severe malnutrition. Malnutrition Related to Morbid Obesity Malnutrition related to morbid obesity No Intervention/Recommendation Comments 1. Resume pureed GIOVANNI diet after CT exam. Assist pt with meals. If glucose continue high, will consider adding CCHO diet. 2. Monitor PO intake, wt, labs and skin integrity 3. F/U as high risk in 2-3 days, 08/19-08/20 Expected Outcomes/Goals Expected Outcomes/Goals 1. PO intake to meet at least 75% of nutritional needs. 2. Wt stability, skin to remain intact, labs to approach WNL.
[2017-08-20] MEDS: Amino Acids 3% / Electrolytes 1,000 ML IV SCH (16:00)
[2017-08-20] MEDS: INSULIN ASPART SLIDING SCALE 100 UNITS/ML UNIT SUBQ SCH (18:35)
[2017-08-20] MEDS: Albuterol Nebulizer 2.5mg/3mL HHN PRN (19:19)
[2017-08-21] MEDS: Levofloxacin 250mg/50mL 250 MG/50 ML BAG IV SCH (00:45)
[2017-08-21] MEDS: INSULIN ASPART SLIDING SCALE 100 UNITS/ML UNIT SUBQ SCH ×4 (00:53→18:14)
[2017-08-21] MEDS: Diltiazem 30 mg Tab PO SCH ×4 (01:07→18:10)
[2017-08-21] MEDS: Morphine Sulfate 2 mg/mL 1mL Syr IVP PRN (03:48)
[2017-08-21] MEDS: Enoxaparin 80 mg/0.8 mL 0.8mL Syr SUBQ SCH ×2 (04:15→08:37)
[2017-08-21] MEDS: Hydrocodone/APAP 5mg/325mg Tab PO SCH ×4 (04:17→22:06)
[2017-08-21 05:03] LABS: ALB/GLOB RATIO 0.8 (1.0-1.8); ALBUMIN 2.4 gm/dL (3.7-5.3); ALKALINE PHOSPHATASE 70 U/L (34-104); BILIRUBIN,DIRECT 0.24 mg/dL (0.0-0.2); BILIRUBIN,TOTAL 0.6 mg/dL (0.3-1.0); BUN - UREA NITROGEN 41 mg/dL (7-25); CALCIUM SERUM 7.3 mg/dL (8.6-10.3); CARBON DIOXIDE 19.4 mEq/L (21.0-31.0); CHLORIDE 118 mEq/L (98-107); MAGNESIUM 1.9 mg/dL (1.9-2.7); PHOSPHOROUS 1.6 mg/dL (2.5-5.0); POTASSIUM SERUM 4.4 mEq/L (3.5-5.1); SGOT 757 U/L (13-39); SGPT/ALT 790 U/L (7-52); SODIUM SERUM 144 mEq/L (136-145); TOTAL PROTEIN,SERUM 5.3 gm/dL (6.0-8.3)
[2017-08-21 05:21] LABS: ACETAMINOPHEN < 10.0 ug/mL (10.0-30.0)
[2017-08-21] MEDS: HYDROmorphone 2 mg/mL 1mL Vial IVP PRN ×3 (05:31→23:45)
[2017-08-21] MEDS: D5-0.9%NS 1,000 ML IV SCH ×2 (05:36→13:26)
[2017-08-21] MEDS: Levothyroxine 0.025 Mg Tab PO SCH (06:53)
[2017-08-21 08:13] LABS: GLUCOSE 142 mg/dL (70-105)
[2017-08-21] MEDS: Atorvastatin Calcium 10 MG TAB PO SCH (08:37)
[2017-08-21] MEDS: metroNIDAZOLE 500mg/NS 100mL 500 MG/100 ML BAG IV SCH ×2 (09:05→20:21)
[2017-08-21] MEDS: Amino Acids 3% / Electrolytes 1,000 ML IV SCH (09:06)
--- NOTE | 2017-08-21 09:39 | Diagnostic Imaging Report ---
Ultrasound abdomen HISTORY: Elevated liver function tests COMPARISON: CT abdomen and pelvis on 08/17/2018 Technique: Sonography of the abdomen was performed in multiple planes. FINDINGS: Exam is limited due to bowel gas and patient's medical condition. Assessment of the abdominal aorta is limited on CT exam. The liver demonstrates normal echogenicity. The liver margin is not well-defined, however, no obvious focal lesions identified. Multiple gallstones are noted. The gallbladder wall measures 2.7 mm. The common bile duct measures 2 mm. Evaluation of the pancreas is limited due to bowel gas. The right kidney measures 10.2 x 4.3 cm. The left kidney measures 8.5 x 4.7 cm. The renal margins are not well-defined however no obvious focal lesions or evidence of hydronephrosis. The spleen measures 9.9 cm. IMPRESSION: Limited exam. Multiple gallstones are noted. No definite evidence of gallbladder wall thickening. No evidence of common bile duct dilatation. Limited assessment of the liver. No obvious focal abnormality identified.
--- NOTE | 2017-08-21 10:44 | Infectious Disease Prog Note ---
Infectious Disease Subjective - Review of Systems Service Date: 08/21/17 Subjective: Remains in the ICU. She c/o abdominal pain in lower abdomen. No fever. Infectious Disease Objective - Results Result Diagrams: 08/19/17 09:59 08/21/17 04:30 Recent Labs: Laboratory Last Values WBC 10.8 Th/cmm (4.8-10.8) 08/19/17 09:59 RBC 4.07 Mil/cmm (3.80-5.20) 08/19/17 09:59 Hgb 12.6 gm/dL (12-16) 08/19/17 09:59 Hct 37.3 % (41.0-60) L 08/19/17 09:59 MCV 91.9 fl (81-100) 08/19/17 09:59 MCH 31.1 pg (27.0-31.0) H 08/19/17 09:59 MCHC Differential 33.8 pg (28.0-36.0) 08/19/17 09:59 RDW 14.3 % (11.5-20.0) 08/19/17 09:59 Plt Count 199 Th/cmm (150-400) 08/19/17 09:59 MPV 7.7 fl 08/19/17 09:59 Neutrophils % 78.3 % (40.0-80.0) 08/19/17 09:59 Lymphocytes % 15.6 % (20.0-50.0) L 08/19/17 09:59 Monocytes % 5.9 % (2.0-10.0) 08/19/17 09:59 Eosinophils % 0.1 % (0.0-5.0) 08/19/17 09:59 Basophils % 0.1 % (0.0-2.0) 08/19/17 09:59 PT 15.5 SECONDS (9.5-11.5) H 08/19/17 11:49 INR 1.46 (0.5-1.4) H 08/19/17 11:49 PTT (Actin FS) 34.3 SECONDS (26.0-38.0) 08/19/17 11:49 Specimen Source arterial 08/16/17 18:58 Sample Site rr 08/16/17 18:58 pH 7.38 (7.35-7.45) 08/16/17 18:58 pCO2 41.0 mmHg (35.0-45.0) 08/16/17 18:58 pO2 44.0 mmHg (80.0-100.0) L* 08/16/17 18:58 HCO3 23.9 mEq/L (20.0-26.0) 08/16/17 18:58 Base Excess -0.8 mEq/L (-3.0-3.0) 08/16/17 18:58 O2 Saturation 79.0 % (92.0-100.0) L 08/16/17 18:58 Kael Test y 08/16/17 18:58 Vent Rate N/A 08/16/17 18:58 Inspired O2 36 08/16/17 18:58 Tidal Volume N/A 08/16/17 18:58 PEEP N/A 08/16/17 18:58 Pressure (ins/psv/peep) N/A 08/16/17 18:58 Critical Value MM/JY 08/16/17 18:58 Sodium 144 mEq/L (136-145) 08/21/17 04:30 Potassium 4.4 mEq/L (3.5-5.1) 08/21/17 04:30 Chloride 118 mEq/L (98-107) H 08/21/17 04:30 Carbon Dioxide 19.4 mEq/L (21.0-31.0) L 08/21/17 04:30 Anion Gap 11.0 (7.0-16.0) 08/21/17 04:30 BUN 41 mg/dL (7-25) H 08/21/17 04:30 Creatinine 2.0 mg/dL (0.6-1.2) H 08/21/17 04:30 Est GFR ( Amer) TNP 08/21/17 04:30 Est GFR (Non-Af Amer) TNP 08/21/17 04:30 BUN/Creatinine Ratio 20.5 08/21/17 04:30 Glucose 142 mg/dL (70-105) H D 08/21/17 04:30 POC Glucose 162 MG/DL (70 - 105) H 08/20/17 18:31 Hemoglobin A1c % 5.1 % (4.0-6.0) 08/16/17 18:40 Calcium 7.3 mg/dL (8.6-10.3) L 08/21/17 04:30 Phosphorus 1.6 mg/dL (2.5-5.0) L 08/21/17 04:30 Magnesium 1.9 mg/dL (1.9-2.7) 08/21/17 04:30 Total Bilirubin 0.6 mg/dL (0.3-1.0) 08/21/17 04:30 Direct Bilirubin 0.24 mg/dL (0.0-0.2) H 08/21/17 04:30 AST 757 U/L (13-39) H 08/21/17 04:30 ALT 790 U/L (7-52) H 08/21/17 04:30 Alkaline Phosphatase 70 U/L (34-104) 08/21/17 04:30 Creatine Kinase 21 U/L (30-223) L 08/16/17 18:40 Troponin I 5.84 ng/mL (0.01-0.05) H* D 08/20/17 05:00 B-Natriuretic Peptide 163.0 pg/mL (5.0-100.0) H 08/16/17 18:40 Total Protein 5.3 gm/dL (6.0-8.3) L 08/21/17 04:30 Albumin 2.4 gm/dL (3.7-5.3) L 08/21/17 04:30 Globulin 2.9 gm/dL 08/21/17 04:30 Albumin/Globulin Ratio 0.8 (1.0-1.8) L 08/21/17 04:30 Triglycerides 149 mg/dL (<150) 08/19/17 12:37 Cholesterol 84 mg/dL (<200) 08/19/17 12:37 LDL Cholesterol Direct 47 mg/dL (75-193) L 08/19/17 12:37 HDL Cholesterol 18 mg/dL (23-92) L 08/19/17 12:37 Amylase 12 U/L (29-103) L 08/16/17 18:40 Lipase 6 U/L (11-82) L 08/16/17 18:40 TSH 1.72 uIU/ml (0.34-5.60) 08/19/17 09:59 Urine Source CATH 08/17/17 05:05 Urine Color YELLOW 08/17/17 05:05 Urine Clarity TURBID (CLEAR) H 08/17/17 05:05 Urine pH 5.5 (4.6 - 8.0) 08/17/17 05:05 Ur Specific [place] 1.020 (1.005-1.030) 08/17/17 05:05 Urine Protein TRACE mg/dL (NEGATIVE) 08/17/17 05:05 Urine Glucose (UA) NEGATIVE mg/dL (NEGATIVE) 08/17/17 05:05 Urine Ketones 15 mg/dL (NEGATIVE) H 08/17/17 05:05 Urine Blood NEGATIVE (NEGATIVE) 08/17/17 05:05 Urine Nitrate POSITIVE (NEGATIVE) H 08/17/17 05:05 Urine Bilirubin NEGATIVE (NEGATIVE) 08/17/17 05:05 Urine Urobilinogen 1.0 E.U./dL (0.2 - 1.0) 08/17/17 05:05 Ur Leukocyte Esterase MODERATE (NEGATIVE) H 08/17/17 05:05 Urine RBC 0-2 /hpf (0-5) 08/17/17 05:05 Urine WBC 50-100 /hpf (0-5) H 08/17/17 05:05 Ur Epithelial Cells MODERATE /lpf (FEW) 08/17/17 05:05 Urine Bacteria 4+ /hpf (NONE SEEN) H 08/17/17 05:05 Acetaminophen < 10.0 ug/mL (10.0-30.0) L 08/21/17 04:30 - Physical Exam Vitals and I&O: Vital Signs Temp 98.5 F 08/21/17 05:00 Pulse 87 08/21/17 07:17 Resp 16 08/21/17 07:17 BP 90/57 08/21/17 06:00 Pulse Ox 98 08/21/17 08:00 Intake & Output 08/20/17 08/21/17 08/21/17 18:59 06:59 18:59 Intake Total 2155.667 1045 855 Balance 2155.667 1045 855 Weight (lbs) 79.01 kg 79.832 kg Intake: Intake, IV Amount 2155.667 1045 855 Amikacin 375 mg In 101.5 Dextrose 5% 100 ml @ 100 mls/hr IV Q48HR [facility] Rx#: [id number] Amino Acids 3% / 855 Electrolytes 1,000 ml @ 50 mls/hr IV .Q20H [facility] Rx #:[id number] D5-0.9%Ns 1,000 ml @ 125 1954.167 mls/hr IV .Q8H [facility] Rx#: [id number] D5-0.9%Ns 1,000 ml @ 75 945 mls/hr IV .[id number] [facility] Rx #:[id number] metroNIDAZOLE 500mg/NS 100 100 100mL 500 mg In 100 ml @ 100 mls/hr IV Q12HR [facility] Rx#:[id number] Oral 0 Other: # Voids 3 3 # Bowel Movements 0 Weight Source Bedscale Bedscale Active Medications: Current Medications Acetaminophen (Tylenol) 650 mg PO Q6H PRN PRN Reason: Pain (Mild) Stop: 10/16/17 02:01 Acetaminophen/Hydrocodone Bitart ([place] 5mg/325mg) 1 tab PO Q6H [facility] Stop: 10/15/17 21:29 Last Admin: 08/21/17 04:17 Dose: Not Given Albuterol Sulfate (Albuterol 2.5mg/3ml Neb Ud) 1.25 mg HHN Q2HRT PRN PRN Reason: Shortness of Breath Stop: 10/16/17 02:12 Last Admin: 08/20/17 19:19 Dose: 1.25 mg Ascorbic Acid (Vitamin C) 500 mg PO DAILY [facility] Stop: 10/16/17 08:59 Last Admin: 08/21/17 08:36 Dose: Not Given Atorvastatin Calcium (Lipitor) 10 mg PO DAILY [facility]; Protocol Stop: 10/19/17 08:59 Last Admin: 08/21/17 08:37 Dose: Not Given Carvedilol (Coreg) 6.25 mg PO BID [facility] Stop: 10/17/17 16:59 Last Admin: 08/21/17 08:37 Dose: Not Given Clopidogrel Bisulfate (Plavix) 75 mg PO DAILY [facility] Stop: 10/16/17 08:59 Last Admin: 08/21/17 08:36 Dose: Not Given Diltiazem HCl (Cardizem) 60 mg PO Q6HR [facility] Stop: 10/17/17 17:59 Last Admin: 08/21/17 05:35 Dose: Not Given Diltiazem HCl (Cardizem) 5 mg IVP Q6H PRN PRN Reason: HR more than 125bpm Stop: 10/19/17 03:29 Docusate Sodium (Colace) 100 mg PO BID [facility] Stop: 10/16/17 08:59 Last Admin: 08/21/17 08:36 Dose: Not Given Donepezil HCl (Aricept) 10 mg PO HS [facility] Stop: 10/15/17 21:59 Last Admin: 08/20/17 22:15 Dose: Not Given Enoxaparin Sodium (Lovenox) 80 mg SUBQ Q24H [facility] Stop: 10/19/17 03:59 Last Admin: 08/21/17 04:15 Dose: 80 mg Enoxaparin Sodium (Lovenox) 80 mg SUBQ DAILY [facility] Stop: 10/19/17 08:59 Last Admin: 08/21/17 08:37 Dose: Not Given Gabapentin (Neurontin) 600 mg PO Q6HR [facility] Stop: 10/16/17 05:59 Last Admin: 08/21/17 05:36 Dose: Not Given Hydromorphone HCl (Dilaudid) 1 mg IVP Q6H PRN PRN Reason: Pain (Moderate) Stop: 10/17/17 16:38 Last Admin: 08/18/17 17:05 Dose: 1 mg Hydromorphone HCl (Dilaudid) 2 mg IVP Q6H PRN PRN Reason: SEVERE PAIN Stop: 10/17/17 21:10 Last Admin: 08/21/17 05:31 Dose: 2 mg Levofloxacin (Levaquin Pb) 250 mg in 50 mls @ 50 mls/hr IV Q24HR [facility] Stop: 10/16/17 00:59 Last Admin: 08/21/17 00:45 Dose: 50 mls/hr Metronidazole (Flagyl) 500 mg in 100 mls @ 100 mls/hr IV Q12HR [facility] Stop: 10/18/17 20:59 Last Admin: 08/21/17 09:05 Dose: 100 mls/hr Amikacin Sulfate 375 mg/ (Dextrose) 101.5 mls @ 100 mls/hr IV Q48HR [facility] Stop: 10/19/17 08:59 Last Infusion: 08/20/17 09:45 Dose: Infused Amino Acids/Electrolytes (Procalamine) 1,000 mls @ 50 mls/hr IV .Q20H [facility] Stop: 10/19/17 15:59 Last Admin: 08/21/17 09:06 Dose: 50 mls/hr Dextrose/Sodium Chloride (D5-0.9%Ns) 1,000 mls @ 75 mls/hr IV .[id number] [facility] Stop: 10/19/17 16:29 Last Admin: 08/21/17 05:36 Dose: 75 mls/hr Insulin Aspart (Novolog Insulin Sliding Scale) 0 units SUBQ Q6HR [facility]; Protocol Stop: 10/19/17 17:59 Last Admin: 08/21/17 05:35 Dose: Not Given Levothyroxine Sodium (Synthroid) 0.025 mg PO DAILY@0730 [facility] Stop: 10/16/17 07:29 Last Admin: 08/21/17 06:53 Dose: Not Given Lorazepam (Ativan) 0.5 mg IVP Q6HR PRN; Protocol PRN Reason: Agitation Stop: 10/18/17 11:03 Last Admin: 08/20/17 07:45 Dose: 0.5 mg Miscellaneous (Amikacin Iv Per Pharmacy) 1 [facility] PRN PRN PRN Reason: Protocol Stop: 10/18/17 15:52 Miscellaneous (Lovenox Subq Per Pharmacy) 1 [facility] PRN PRN PRN Reason: PROTOCOL Stop: 10/18/17 11:40 Miscellaneous (Ppn Per Pharmacy) 1 [facility] PRN PRN PRN Reason: PROTOCOL Stop: 10/19/17 10:04 Montelukast Sodium (Singulair) 10 mg PO DAILY [facility] Stop: 10/16/17 08:59 Last Admin: 08/21/17 08:37 Dose: Not Given Morphine Sulfate (Morphine) 1 mg IVP Q4HR PRN PRN Reason: Moderate Pain Stop: 10/15/17 21:35 Last Admin: 08/21/17 03:48 Dose: 1 mg Mupirocin (Bactroban Oint) 1 appl NS BID [facility] Stop: 08/23/17 09:01 Last Admin: 08/21/17 09:06 Dose: 1 appl Ondansetron HCl (Zofran) 4 mg IV Q6H PRN PRN Reason: Nausea / Vomiting Stop: 10/15/17 21:34 Last Admin: 08/18/17 16:26 Dose: 4 mg Pantoprazole Sodium (Protonix) 40 mg IVP DAILY [facility] Stop: 10/19/17 08:59 Last Admin: 08/21/17 09:05 Dose: 40 mg Prednisone (Deltasone) 5 mg PO DAILY [facility] Stop: 10/16/17 08:59 Last Admin: 08/21/17 08:37 Dose: Not Given General: no acute distress, well developed, well nourished HEENT: atraumatic, normocephalic, PERRLA, EOMI Neck: supple, no thyromegaly Cardiovascular: S1S2, regular Lungs: clear to auscultation bilaterally, clear to percussion Abdomen: soft, tender, no distended, no mass Extremities: no cyanosis, no clubbing, no edema Neurological: awake, alert, oriented Skin: intact Infectious Disease Assmt/Plan - Assessment Assessment: 1. Leukocytosis. 2. Abdominal pain 2/2 Diverticulitis. 3. UTI 4. Hypertension. 5. Hyperlipidemia. 6. Diabetes mellitus type 2. - Plan Plan: Continue Amikacin, Levaquin and flagyl. Nutritional Asmnt/Malnutr-PDOC - Dietary Evaluation Malnutrition Findings (Please click <Entered> for more info): Nutritional Asmnt/Malnutrition Start: 08/17/17 14: 47 Text: Status: Complete Freq: Protocol: Document 08/17/17 14:47 LCHENG (Rec: 08/17/17 15:32 [email or web address]) Nutritional Asmnt/Malnutrition Patient General Information Nutritional Screening High Risk Diagnosis elevated troponin, hypoxia, possible PNA Pertinent Medical Hx/Surgical Hx HTN, CAD, asthma/COPD, PUD/ GERD, ESRD, dementia Subjective Information Pt seen on mask at time of visit. Pt was NPO for CT scheduled today, no PO intake information available. Current Diet Order/ Nutrition Support NPO Pertinent Medications vit C, colace, levaquin, synthorid, zofran, nacl 0.9%, piperacillin, protonix Pertinent Labs 08/16 Na 135, Glucose 190, A1c 5.1 Nutritional Hx/Data Height 1.63 m Height (Calculated Centimeters) 162.6 Current Weight (lbs) 73.936 kg Weight (Calculated Kilograms) 73.9 Weight (Calculated Grams) 61088.6 [place] Body Weight 120 Body Mass Index (BMI) 27.9 Weight Status Overweight GI Symptoms GI Symptoms None Last BM none Difficult in: None Skin Integrity/Comment: reddened to coccyx, buttocks Estimated Nutritional Goals BEE in Kcals: Using Current wt Calories/Kcals/Kg 23-27 Kcals Calculated 3412-7925 Protein g/k Protein Calculated 74 Fluid: ml 1702-1998ml (1ml/kcal) Nutritional Problem 1. Problem Problem altered nutrition related labs Etiology hyperglycemia Signs/Symptoms: glucose 190 at admission Malnutrition Alert Is there a minimum of two criteria No selected? Query Text:Check all the applicable criteria. A minimum of two criteria are recommended for diagnosis of either severe or non-severe malnutrition. Malnutrition Related to Morbid Obesity Malnutrition related to morbid obesity No Intervention/Recommendation Comments 1. Resume pureed GIOVANNI diet after CT exam. Assist pt with meals. If glucose continue high, will consider adding CCHO diet. 2. Monitor PO intake, wt, labs and skin integrity 3. F/U as high risk in 2-3 days, 08/19-08/20 Expected Outcomes/Goals Expected Outcomes/Goals 1. PO intake to meet at least 75% of nutritional needs. 2. Wt stability, skin to remain intact, labs to approach WNL.
[2017-08-21] MEDS: HYDROmorphone 1 mg/mL 1mL Syr IVP PRN (10:59)
[2017-08-21] MEDS ORDERED: Lovenox 1 mg/kg Q12H 1 Each Miscellaneous SUBQ ONE (12:45)
[2017-08-21] MEDS ORDERED: Enoxaparin 40 mg/0.4 mL 0.4mL Syr SUBQ ONE (13:00)
[2017-08-21] MEDS ORDERED: D5-0.9%NS 1,000 ML IV SCH (14:15)
--- NOTE | 2017-08-21 14:28 | GI Progress Note ---
Subjective - Review of Systems Subjective: NO EVENTS Objective - Results Result Diagrams: 08/19/17 09:59 08/21/17 04:30 Recent Labs: Laboratory Last Values WBC 10.8 Th/cmm (4.8-10.8) 08/19/17 09:59 RBC 4.07 Mil/cmm (3.80-5.20) 08/19/17 09:59 Hgb 12.6 gm/dL (12-16) 08/19/17 09:59 Hct 37.3 % (41.0-60) L 08/19/17 09:59 MCV 91.9 fl (81-100) 08/19/17 09:59 MCH 31.1 pg (27.0-31.0) H 08/19/17 09:59 MCHC Differential 33.8 pg (28.0-36.0) 08/19/17 09:59 RDW 14.3 % (11.5-20.0) 08/19/17 09:59 Plt Count 199 Th/cmm (150-400) 08/19/17 09:59 MPV 7.7 fl 08/19/17 09:59 Neutrophils % 78.3 % (40.0-80.0) 08/19/17 09:59 Lymphocytes % 15.6 % (20.0-50.0) L 08/19/17 09:59 Monocytes % 5.9 % (2.0-10.0) 08/19/17 09:59 Eosinophils % 0.1 % (0.0-5.0) 08/19/17 09:59 Basophils % 0.1 % (0.0-2.0) 08/19/17 09:59 PT 15.5 SECONDS (9.5-11.5) H 08/19/17 11:49 INR 1.46 (0.5-1.4) H 08/19/17 11:49 PTT (Actin FS) 34.3 SECONDS (26.0-38.0) 08/19/17 11:49 Specimen Source arterial 08/16/17 18:58 Sample Site rr 08/16/17 18:58 pH 7.38 (7.35-7.45) 08/16/17 18:58 pCO2 41.0 mmHg (35.0-45.0) 08/16/17 18:58 pO2 44.0 mmHg (80.0-100.0) L* 08/16/17 18:58 HCO3 23.9 mEq/L (20.0-26.0) 08/16/17 18:58 Base Excess -0.8 mEq/L (-3.0-3.0) 08/16/17 18:58 O2 Saturation 79.0 % (92.0-100.0) L 08/16/17 18:58 Kael Test y 08/16/17 18:58 Vent Rate N/A 08/16/17 18:58 Inspired O2 36 08/16/17 18:58 Tidal Volume N/A 08/16/17 18:58 PEEP N/A 08/16/17 18:58 Pressure (ins/psv/peep) N/A 08/16/17 18:58 Critical Value MM/JY 08/16/17 18:58 Sodium 144 mEq/L (136-145) 08/21/17 04:30 Potassium 4.4 mEq/L (3.5-5.1) 08/21/17 04:30 Chloride 118 mEq/L (98-107) H 08/21/17 04:30 Carbon Dioxide 19.4 mEq/L (21.0-31.0) L 08/21/17 04:30 Anion Gap 11.0 (7.0-16.0) 08/21/17 04:30 BUN 41 mg/dL (7-25) H 08/21/17 04:30 Creatinine 2.0 mg/dL (0.6-1.2) H 08/21/17 04:30 Est GFR ( Amer) TNP 08/21/17 04:30 Est GFR (Non-Af Amer) TNP 08/21/17 04:30 BUN/Creatinine Ratio 20.5 08/21/17 04:30 Glucose 142 mg/dL (70-105) H D 08/21/17 04:30 POC Glucose 138 MG/DL (70 - 105) H 08/21/17 13:43 Hemoglobin A1c % 5.1 % (4.0-6.0) 08/16/17 18:40 Calcium 7.3 mg/dL (8.6-10.3) L 08/21/17 04:30 Phosphorus 1.6 mg/dL (2.5-5.0) L 08/21/17 04:30 Magnesium 1.9 mg/dL (1.9-2.7) 08/21/17 04:30 Total Bilirubin 0.6 mg/dL (0.3-1.0) 08/21/17 04:30 Direct Bilirubin 0.24 mg/dL (0.0-0.2) H 08/21/17 04:30 AST 757 U/L (13-39) H 08/21/17 04:30 ALT 790 U/L (7-52) H 08/21/17 04:30 Alkaline Phosphatase 70 U/L (34-104) 08/21/17 04:30 Creatine Kinase 21 U/L (30-223) L 08/16/17 18:40 Troponin I 5.84 ng/mL (0.01-0.05) H* D 08/20/17 05:00 B-Natriuretic Peptide 163.0 pg/mL (5.0-100.0) H 08/16/17 18:40 Total Protein 5.3 gm/dL (6.0-8.3) L 08/21/17 04:30 Albumin 2.4 gm/dL (3.7-5.3) L 08/21/17 04:30 Globulin 2.9 gm/dL 08/21/17 04:30 Albumin/Globulin Ratio 0.8 (1.0-1.8) L 08/21/17 04:30 Triglycerides 149 mg/dL (<150) 08/19/17 12:37 Cholesterol 84 mg/dL (<200) 08/19/17 12:37 LDL Cholesterol Direct 47 mg/dL (75-193) L 08/19/17 12:37 HDL Cholesterol 18 mg/dL (23-92) L 08/19/17 12:37 Amylase 12 U/L (29-103) L 08/16/17 18:40 Lipase 6 U/L (11-82) L 08/16/17 18:40 TSH 1.72 uIU/ml (0.34-5.60) 08/19/17 09:59 Urine Source CATH 08/17/17 05:05 Urine Color YELLOW 08/17/17 05:05 Urine Clarity TURBID (CLEAR) H 08/17/17 05:05 Urine pH 5.5 (4.6 - 8.0) 08/17/17 05:05 Ur Specific [place] 1.020 (1.005-1.030) 08/17/17 05:05 Urine Protein TRACE mg/dL (NEGATIVE) 08/17/17 05:05 Urine Glucose (UA) NEGATIVE mg/dL (NEGATIVE) 08/17/17 05:05 Urine Ketones 15 mg/dL (NEGATIVE) H 08/17/17 05:05 Urine Blood NEGATIVE (NEGATIVE) 08/17/17 05:05 Urine Nitrate POSITIVE (NEGATIVE) H 08/17/17 05:05 Urine Bilirubin NEGATIVE (NEGATIVE) 08/17/17 05:05 Urine Urobilinogen 1.0 E.U./dL (0.2 - 1.0) 08/17/17 05:05 Ur Leukocyte Esterase MODERATE (NEGATIVE) H 08/17/17 05:05 Urine RBC 0-2 /hpf (0-5) 08/17/17 05:05 Urine WBC 50-100 /hpf (0-5) H 08/17/17 05:05 Ur Epithelial Cells MODERATE /lpf (FEW) 08/17/17 05:05 Urine Bacteria 4+ /hpf (NONE SEEN) H 08/17/17 05:05 Acetaminophen < 10.0 ug/mL (10.0-30.0) L 08/21/17 04:30 - Physical Exam Vitals and I&O: Vital Signs Temp 96.6 F 08/21/17 12:00 Pulse 88 08/21/17 14:00 Resp 20 08/21/17 14:00 BP 86/37 08/21/17 14:00 Pulse Ox 95 08/21/17 14:00 Intake & Output 08/20/17 08/21/17 08/21/17 18:59 06:59 18:59 Intake Total 2155.667 1045 1542.5 Balance 2155.667 1045 1542.5 Weight (lbs) 79.01 kg 79.832 kg Intake: Intake, IV Amount 2155.667 1045 1542.5 Amikacin 375 mg In 101.5 Dextrose 5% 100 ml @ 100 mls/hr IV Q48HR [facility] Rx#: [id number] Amino Acids 3% / 855 Electrolytes 1,000 ml @ 50 mls/hr IV .Q20H [facility] Rx #:[id number] D5-0.9%Ns 1,000 ml @ 125 1954.167 mls/hr IV .Q8H [facility] Rx#: [id number] D5-0.9%Ns 1,000 ml @ 75 945 587.5 mls/hr IV .[id number] [facility] Rx #:[id number] metroNIDAZOLE 500mg/NS 100 100 100 100mL 500 mg In 100 ml @ 100 mls/hr IV Q12HR [facility] Rx#:[id number] Oral 0 Other: # Voids 3 3 # Bowel Movements 0 Weight Source Bedscale Bedscale Active Medications: Current Medications Acetaminophen (Tylenol) 650 mg PO Q6H PRN PRN Reason: Pain (Mild) Stop: 10/16/17 02:01 Acetaminophen/Hydrocodone Bitart ([place] 5mg/325mg) 1 tab PO Q6H [facility] Stop: 10/15/17 21:29 Last Admin: 08/21/17 10:55 Dose: Not Given Albuterol Sulfate (Albuterol 2.5mg/3ml Neb Ud) 1.25 mg HHN Q2HRT PRN PRN Reason: Shortness of Breath Stop: 10/16/17 02:12 Last Admin: 08/20/17 19:19 Dose: 1.25 mg Ascorbic Acid (Vitamin C) 500 mg PO DAILY [facility] Stop: 10/16/17 08:59 Last Admin: 08/21/17 08:36 Dose: Not Given Atorvastatin Calcium (Lipitor) 10 mg PO DAILY [facility]; Protocol Stop: 10/19/17 08:59 Last Admin: 08/21/17 08:37 Dose: Not Given Carvedilol (Coreg) 6.25 mg PO BID [facility] Stop: 10/17/17 16:59 Last Admin: 08/21/17 08:37 Dose: Not Given Clopidogrel Bisulfate (Plavix) 75 mg PO DAILY [facility] Stop: 10/16/17 08:59 Last Admin: 08/21/17 08:36 Dose: Not Given Diltiazem HCl (Cardizem) 60 mg PO Q6HR [facility] Stop: 10/17/17 17:59 Last Admin: 08/21/17 12:09 Dose: Not Given Diltiazem HCl (Cardizem) 5 mg IVP Q6H PRN PRN Reason: HR more than 125bpm Stop: 10/19/17 03:29 Docusate Sodium (Colace) 100 mg PO BID [facility] Stop: 10/16/17 08:59 Last Admin: 08/21/17 08:36 Dose: Not Given Donepezil HCl (Aricept) 10 mg PO HS [facility] Stop: 10/15/17 21:59 Last Admin: 08/20/17 22:15 Dose: Not Given Enoxaparin Sodium (Lovenox) 80 mg SUBQ DAILY [facility] Stop: 10/19/17 08:59 Last Admin: 08/21/17 08:37 Dose: Not Given Enoxaparin Sodium 80 mg/ (Enoxaparin Sodium 40 mg) 120 mg SUBQ DAILY@1400 [facility] Stop: 10/21/17 13:59 Gabapentin (Neurontin) 600 mg PO Q6HR [facility] Stop: 10/16/17 05:59 Last Admin: 08/21/17 12:09 Dose: Not Given Hydromorphone HCl (Dilaudid) 1 mg IVP Q6H PRN PRN Reason: Pain (Moderate) Stop: 10/17/17 16:38 Last Admin: 08/21/17 10:59 Dose: 1 mg Hydromorphone HCl (Dilaudid) 2 mg IVP Q6H PRN PRN Reason: SEVERE PAIN Stop: 10/17/17 21:10 Last Admin: 08/21/17 05:31 Dose: 2 mg Levofloxacin (Levaquin Pb) 250 mg in 50 mls @ 50 mls/hr IV Q24HR [facility] Stop: 10/16/17 00:59 Last Admin: 08/21/17 00:45 Dose: 50 mls/hr Metronidazole (Flagyl) 500 mg in 100 mls @ 100 mls/hr IV Q12HR [facility] Stop: 10/18/17 20:59 Last Infusion: 08/21/17 10:05 Dose: Infused Amikacin Sulfate 375 mg/ (Dextrose) 101.5 mls @ 100 mls/hr IV Q48HR [facility] Stop: 10/19/17 08:59 Last Infusion: 08/20/17 09:45 Dose: Infused Amino Acids/Electrolytes (Procalamine) 1,000 mls @ 50 mls/hr IV .Q20H [facility] Stop: 10/19/17 15:59 Last Admin: 08/21/17 09:06 Dose: 50 mls/hr Dextrose/Sodium Chloride (D5-0.9%Ns) 1,000 mls @ 50 mls/hr IV .Q20H [facility] Stop: 10/20/17 14:14 Insulin Aspart (Novolog Insulin Sliding Scale) 0 units SUBQ Q6HR [facility]; Protocol Stop: 10/19/17 17:59 Last Admin: 08/21/17 13:59 Dose: Not Given Levothyroxine Sodium (Synthroid) 0.025 mg PO DAILY@0730 [facility] Stop: 10/16/17 07:29 Last Admin: 08/21/17 06:53 Dose: Not Given Lorazepam (Ativan) 0.5 mg IVP Q6HR PRN; Protocol PRN Reason: Agitation Stop: 10/18/17 11:03 Last Admin: 08/21/17 13:20 Dose: 0.5 mg Miscellaneous (Amikacin Iv Per Pharmacy) 1 [facility] PRN PRN PRN Reason: Protocol Stop: 10/18/17 15:52 Miscellaneous (Lovenox Subq Per Pharmacy) 1 [facility] PRN PRN PRN Reason: PROTOCOL Stop: 10/18/17 11:40 Miscellaneous (Ppn Per Pharmacy) 1 [facility] PRN PRN PRN Reason: PROTOCOL Stop: 10/19/17 10:04 Montelukast Sodium (Singulair) 10 mg PO DAILY [facility] Stop: 10/16/17 08:59 Last Admin: 08/21/17 08:37 Dose: Not Given Morphine Sulfate (Morphine) 1 mg IVP Q4HR PRN PRN Reason: Moderate Pain Stop: 10/15/17 21:35 Last Admin: 08/21/17 03:48 Dose: 1 mg Mupirocin (Bactroban Oint) 1 appl NS BID [facility] Stop: 08/23/17 09:01 Last Admin: 08/21/17 09:06 Dose: 1 appl Ondansetron HCl (Zofran) 4 mg IV Q6H PRN PRN Reason: Nausea / Vomiting Stop: 10/15/17 21:34 Last Admin: 08/18/17 16:26 Dose: 4 mg Pantoprazole Sodium (Protonix) 40 mg IVP DAILY [facility] Stop: 10/19/17 08:59 Last Admin: 08/21/17 09:05 Dose: 40 mg Prednisone (Deltasone) 5 mg PO DAILY [facility] Stop: 10/16/17 08:59 Last Admin: 08/21/17 08:37 Dose: Not Given General: Mild distress (confused) Neck: Supple Cardiovascular: Regular rate Lungs: Clear to auscultation Abdomen: Bowel sounds, Soft, Tender (LLQ), Distended (MILD) Assessment/Plan - Assessment Assessment: 87 YO FEMALE WITH SIGMOID DIVERTICULITIS. MAY ALSO HAVE ISCHEMIC COLITIS. ALSO WITH CHOLELITHIASIS AND ELEVATED TRANSAMINASES - R/O ISCHEMIC HEPATITIS VS. CONGESTION FROM CHF. 1. ABX. 2. NPO AND TPN. 3. PER CARDS TO OPTIMIZE CARDIAC FUNCTION. 4. FAILED SWALLOW EVAL. POLST OUTLINED WISH FOR DNR AND NO ARTIFICIAL FEEDING. 5. CHECK HIDA
--- NOTE | 2017-08-21 16:08 | Cardiology ---
08/19/[address] Cheek. PROCEDURE: Echocardiogram. M-MODE ECHOCARDIOGRAM: Mitral valve, anterior leaflet of mitral valve shows normal excursion, EF velocity. Posterior leaflet of mitral valve shows normal excursion. Left ventricular posterior wall shows increased thickness, normal excursion. Interventricular septum shows increased thickness, normal excursion, hypertrophy of the left ventricle, ejection fraction 37%. Left atrium enlarged at 4.1 cm. Aortic root shows normal dimension, normal excursion of aortic leaflets. CONCLUSION: Cardiomyopathy, ejection fraction 37%, left atrial enlargement. 2D ECHO: Long axis view shows enlarged left ventricular cavity with decreased ejection fraction, hypertrophy of the left ventricle. Left atrial enlargement. Aortic root shows normal dimension, normal excursion of aortic leaflets. Short axis view of mitral valve normal. Short axis view of aortic valve normal. Apical four chamber view showed normal sized left ventricle with hypertrophy of the left ventricle. Left atrium enlarged. Right ventricular cavity, right atrium normal, no pericardial effusion. CONCLUSION: Left atrial enlargement, cardiomyopathy, hypertrophy of the left ventricle, ejection fraction 37%. Doppler study shows mild mitral regurgitation, moderate tricuspid regurgitation, trace pulmonary regurgitation, right ventricular systolic pressure 40 mmHg. [facility]# [id number]
--- NOTE | 2017-08-21 16:16 | General Progress Note ---
Subjective - Review of Systems Events since last encounter: no distress Objective - Results Result Diagrams: 08/19/17 09:59 08/21/17 04:30 Recent Labs: Laboratory Last Values WBC 10.8 Th/cmm (4.8-10.8) 08/19/17 09:59 RBC 4.07 Mil/cmm (3.80-5.20) 08/19/17 09:59 Hgb 12.6 gm/dL (12-16) 08/19/17 09:59 Hct 37.3 % (41.0-60) L 08/19/17 09:59 MCV 91.9 fl (81-100) 08/19/17 09:59 MCH 31.1 pg (27.0-31.0) H 08/19/17 09:59 MCHC Differential 33.8 pg (28.0-36.0) 08/19/17 09:59 RDW 14.3 % (11.5-20.0) 08/19/17 09:59 Plt Count 199 Th/cmm (150-400) 08/19/17 09:59 MPV 7.7 fl 08/19/17 09:59 Neutrophils % 78.3 % (40.0-80.0) 08/19/17 09:59 Lymphocytes % 15.6 % (20.0-50.0) L 08/19/17 09:59 Monocytes % 5.9 % (2.0-10.0) 08/19/17 09:59 Eosinophils % 0.1 % (0.0-5.0) 08/19/17 09:59 Basophils % 0.1 % (0.0-2.0) 08/19/17 09:59 PT 15.5 SECONDS (9.5-11.5) H 08/19/17 11:49 INR 1.46 (0.5-1.4) H 08/19/17 11:49 PTT (Actin FS) 34.3 SECONDS (26.0-38.0) 08/19/17 11:49 Specimen Source arterial 08/16/17 18:58 Sample Site rr 08/16/17 18:58 pH 7.38 (7.35-7.45) 08/16/17 18:58 pCO2 41.0 mmHg (35.0-45.0) 08/16/17 18:58 pO2 44.0 mmHg (80.0-100.0) L* 08/16/17 18:58 HCO3 23.9 mEq/L (20.0-26.0) 08/16/17 18:58 Base Excess -0.8 mEq/L (-3.0-3.0) 08/16/17 18:58 O2 Saturation 79.0 % (92.0-100.0) L 08/16/17 18:58 Kael Test y 08/16/17 18:58 Vent Rate N/A 08/16/17 18:58 Inspired O2 36 08/16/17 18:58 Tidal Volume N/A 08/16/17 18:58 PEEP N/A 08/16/17 18:58 Pressure (ins/psv/peep) N/A 08/16/17 18:58 Critical Value MM/JY 08/16/17 18:58 Sodium 144 mEq/L (136-145) 08/21/17 04:30 Potassium 4.4 mEq/L (3.5-5.1) 08/21/17 04:30 Chloride 118 mEq/L (98-107) H 08/21/17 04:30 Carbon Dioxide 19.4 mEq/L (21.0-31.0) L 08/21/17 04:30 Anion Gap 11.0 (7.0-16.0) 08/21/17 04:30 BUN 41 mg/dL (7-25) H 08/21/17 04:30 Creatinine 2.0 mg/dL (0.6-1.2) H 08/21/17 04:30 Est GFR ( Amer) TNP 08/21/17 04:30 Est GFR (Non-Af Amer) TNP 08/21/17 04:30 BUN/Creatinine Ratio 20.5 08/21/17 04:30 Glucose 142 mg/dL (70-105) H D 08/21/17 04:30 POC Glucose 138 MG/DL (70 - 105) H 08/21/17 13:43 Hemoglobin A1c % 5.1 % (4.0-6.0) 08/16/17 18:40 Calcium 7.3 mg/dL (8.6-10.3) L 08/21/17 04:30 Phosphorus 1.6 mg/dL (2.5-5.0) L 08/21/17 04:30 Magnesium 1.9 mg/dL (1.9-2.7) 08/21/17 04:30 Total Bilirubin 0.6 mg/dL (0.3-1.0) 08/21/17 04:30 Direct Bilirubin 0.24 mg/dL (0.0-0.2) H 08/21/17 04:30 AST 757 U/L (13-39) H 08/21/17 04:30 ALT 790 U/L (7-52) H 08/21/17 04:30 Alkaline Phosphatase 70 U/L (34-104) 08/21/17 04:30 Creatine Kinase 21 U/L (30-223) L 08/16/17 18:40 Troponin I 5.84 ng/mL (0.01-0.05) H* D 08/20/17 05:00 B-Natriuretic Peptide 163.0 pg/mL (5.0-100.0) H 08/16/17 18:40 Total Protein 5.3 gm/dL (6.0-8.3) L 08/21/17 04:30 Albumin 2.4 gm/dL (3.7-5.3) L 08/21/17 04:30 Globulin 2.9 gm/dL 08/21/17 04:30 Albumin/Globulin Ratio 0.8 (1.0-1.8) L 08/21/17 04:30 Triglycerides 149 mg/dL (<150) 08/19/17 12:37 Cholesterol 84 mg/dL (<200) 08/19/17 12:37 LDL Cholesterol Direct 47 mg/dL (75-193) L 08/19/17 12:37 HDL Cholesterol 18 mg/dL (23-92) L 08/19/17 12:37 Amylase 12 U/L (29-103) L 08/16/17 18:40 Lipase 6 U/L (11-82) L 08/16/17 18:40 TSH 1.72 uIU/ml (0.34-5.60) 08/19/17 09:59 Urine Source CATH 08/17/17 05:05 Urine Color YELLOW 08/17/17 05:05 Urine Clarity TURBID (CLEAR) H 08/17/17 05:05 Urine pH 5.5 (4.6 - 8.0) 08/17/17 05:05 Ur Specific [place] 1.020 (1.005-1.030) 08/17/17 05:05 Urine Protein TRACE mg/dL (NEGATIVE) 08/17/17 05:05 Urine Glucose (UA) NEGATIVE mg/dL (NEGATIVE) 08/17/17 05:05 Urine Ketones 15 mg/dL (NEGATIVE) H 08/17/17 05:05 Urine Blood NEGATIVE (NEGATIVE) 08/17/17 05:05 Urine Nitrate POSITIVE (NEGATIVE) H 08/17/17 05:05 Urine Bilirubin NEGATIVE (NEGATIVE) 08/17/17 05:05 Urine Urobilinogen 1.0 E.U./dL (0.2 - 1.0) 08/17/17 05:05 Ur Leukocyte Esterase MODERATE (NEGATIVE) H 08/17/17 05:05 Urine RBC 0-2 /hpf (0-5) 08/17/17 05:05 Urine WBC 50-100 /hpf (0-5) H 08/17/17 05:05 Ur Epithelial Cells MODERATE /lpf (FEW) 08/17/17 05:05 Urine Bacteria 4+ /hpf (NONE SEEN) H 08/17/17 05:05 Acetaminophen < 10.0 ug/mL (10.0-30.0) L 08/21/17 04:30 - Physical Exam Vitals and I&O: Vital Signs Temp 96.6 F 08/21/17 12:00 Pulse 88 08/21/17 14:00 Resp 20 08/21/17 14:00 BP 86/37 08/21/17 14:00 Pulse Ox 95 08/21/17 14:00 Intake & Output 08/20/17 08/21/17 08/21/17 18:59 06:59 18:59 Intake Total 2155.667 1045 1542.5 Balance 2155.667 1045 1542.5 Weight (lbs) 79.01 kg 79.832 kg Intake: Intake, IV Amount 2155.667 1045 1542.5 Amikacin 375 mg In 101.5 Dextrose 5% 100 ml @ 100 mls/hr IV Q48HR [facility] Rx#: [id number] Amino Acids 3% / 855 Electrolytes 1,000 ml @ 50 mls/hr IV .Q20H [facility] Rx #:[id number] D5-0.9%Ns 1,000 ml @ 125 1954.167 mls/hr IV .Q8H [facility] Rx#: [id number] D5-0.9%Ns 1,000 ml @ 75 945 587.5 mls/hr IV .[id number] [facility] Rx #:[id number] metroNIDAZOLE 500mg/NS 100 100 100 100mL 500 mg In 100 ml @ 100 mls/hr IV Q12HR [facility] Rx#:[id number] Oral 0 Other: # Voids 3 3 # Bowel Movements 0 Weight Source Bedscale Bedscale Active Medications: Current Medications Acetaminophen (Tylenol) 650 mg PO Q6H PRN PRN Reason: Pain (Mild) Stop: 10/16/17 02:01 Acetaminophen/Hydrocodone Bitart ([place] 5mg/325mg) 1 tab PO Q6H [facility] Stop: 10/15/17 21:29 Last Admin: 08/21/17 15:45 Dose: Not Given Albuterol Sulfate (Albuterol 2.5mg/3ml Neb Ud) 1.25 mg HHN Q2HRT PRN PRN Reason: Shortness of Breath Stop: 10/16/17 02:12 Last Admin: 08/20/17 19:19 Dose: 1.25 mg Ascorbic Acid (Vitamin C) 500 mg PO DAILY [facility] Stop: 10/16/17 08:59 Last Admin: 08/21/17 08:36 Dose: Not Given Atorvastatin Calcium (Lipitor) 10 mg PO DAILY [facility]; Protocol Stop: 10/19/17 08:59 Last Admin: 08/21/17 08:37 Dose: Not Given Carvedilol (Coreg) 6.25 mg PO BID [facility] Stop: 10/17/17 16:59 Last Admin: 08/21/17 08:37 Dose: Not Given Clopidogrel Bisulfate (Plavix) 75 mg PO DAILY [facility] Stop: 10/16/17 08:59 Last Admin: 08/21/17 08:36 Dose: Not Given Diltiazem HCl (Cardizem) 60 mg PO Q6HR [facility] Stop: 10/17/17 17:59 Last Admin: 08/21/17 12:09 Dose: Not Given Diltiazem HCl (Cardizem) 5 mg IVP Q6H PRN PRN Reason: HR more than 125bpm Stop: 10/19/17 03:29 Docusate Sodium (Colace) 100 mg PO BID [facility] Stop: 10/16/17 08:59 Last Admin: 08/21/17 08:36 Dose: Not Given Donepezil HCl (Aricept) 10 mg PO HS [facility] Stop: 10/15/17 21:59 Last Admin: 08/20/17 22:15 Dose: Not Given Enoxaparin Sodium (Lovenox) 80 mg SUBQ DAILY [facility] Stop: 10/19/17 08:59 Last Admin: 08/21/17 08:37 Dose: Not Given Enoxaparin Sodium 80 mg/ (Enoxaparin Sodium 40 mg) 120 mg SUBQ DAILY@1400 [facility] Stop: 10/21/17 13:59 Gabapentin (Neurontin) 600 mg PO Q6HR [facility] Stop: 10/16/17 05:59 Last Admin: 08/21/17 12:09 Dose: Not Given Hydromorphone HCl (Dilaudid) 1 mg IVP Q6H PRN PRN Reason: Pain (Moderate) Stop: 10/17/17 16:38 Last Admin: 08/21/17 10:59 Dose: 1 mg Hydromorphone HCl (Dilaudid) 2 mg IVP Q6H PRN PRN Reason: SEVERE PAIN Stop: 10/17/17 21:10 Last Admin: 08/21/17 05:31 Dose: 2 mg Levofloxacin (Levaquin Pb) 250 mg in 50 mls @ 50 mls/hr IV Q24HR [facility] Stop: 10/16/17 00:59 Last Admin: 08/21/17 00:45 Dose: 50 mls/hr Metronidazole (Flagyl) 500 mg in 100 mls @ 100 mls/hr IV Q12HR [facility] Stop: 10/18/17 20:59 Last Infusion: 08/21/17 10:05 Dose: Infused Amikacin Sulfate 375 mg/ (Dextrose) 101.5 mls @ 100 mls/hr IV Q48HR [facility] Stop: 10/19/17 08:59 Last Infusion: 08/20/17 09:45 Dose: Infused Amino Acids/Electrolytes (Procalamine) 1,000 mls @ 50 mls/hr IV .Q20H [facility] Stop: 10/19/17 15:59 Last Admin: 08/21/17 09:06 Dose: 50 mls/hr Dextrose/Sodium Chloride (D5-0.9%Ns) 1,000 mls @ 50 mls/hr IV .Q20H [facility] Stop: 10/20/17 14:14 Insulin Aspart (Novolog Insulin Sliding Scale) 0 units SUBQ Q6HR [facility]; Protocol Stop: 10/19/17 17:59 Last Admin: 08/21/17 13:59 Dose: Not Given Levothyroxine Sodium (Synthroid) 0.025 mg PO DAILY@0730 [facility] Stop: 10/16/17 07:29 Last Admin: 08/21/17 06:53 Dose: Not Given Lorazepam (Ativan) 0.5 mg IVP Q6HR PRN; Protocol PRN Reason: Agitation Stop: 10/18/17 11:03 Last Admin: 08/21/17 13:20 Dose: 0.5 mg Miscellaneous (Amikacin Iv Per Pharmacy) 1 [facility] PRN PRN PRN Reason: Protocol Stop: 10/18/17 15:52 Miscellaneous (Lovenox Subq Per Pharmacy) 1 [facility] PRN PRN PRN Reason: PROTOCOL Stop: 10/18/17 11:40 Miscellaneous (Ppn Per Pharmacy) 1 [facility] PRN PRN PRN Reason: PROTOCOL Stop: 10/19/17 10:04 Montelukast Sodium (Singulair) 10 mg PO DAILY [facility] Stop: 10/16/17 08:59 Last Admin: 08/21/17 08:37 Dose: Not Given Morphine Sulfate (Morphine) 1 mg IVP Q4HR PRN PRN Reason: Moderate Pain Stop: 10/15/17 21:35 Last Admin: 08/21/17 03:48 Dose: 1 mg Mupirocin (Bactroban Oint) 1 appl NS BID [facility] Stop: 08/23/17 09:01 Last Admin: 08/21/17 09:06 Dose: 1 appl Ondansetron HCl (Zofran) 4 mg IV Q6H PRN PRN Reason: Nausea / Vomiting Stop: 10/15/17 21:34 Last Admin: 08/18/17 16:26 Dose: 4 mg Pantoprazole Sodium (Protonix) 40 mg IVP DAILY [facility] Stop: 10/19/17 08:59 Last Admin: 08/21/17 09:05 Dose: 40 mg Prednisone (Deltasone) 5 mg PO DAILY [facility] Stop: 10/16/17 08:59 Last Admin: 08/21/17 08:37 Dose: Not Given General: Mild distress (confused) Neck: Supple Cardiovascular: Regular rate Lungs: Clear to auscultation Abdomen: Bowel sounds, Soft, Tender (LLQ), Distended (MILD) Assessment/Plan - Assessment Assessment: abdominal pain gastroenteritis cad copd pud gerd dementia - Plan Plan: iv vanco as per id cbc/bmp in am continue the rest of the orders Nutritional Asmnt/Malnutr-PDOC - Dietary Evaluation Malnutrition Findings (Please click <Entered> for more info): Nutritional Asmnt/Malnutrition Start: 08/17/17 14: 47 Text: Status: Complete Freq: Protocol: Document 08/17/17 14:47 [email or web address] (Rec: 08/17/17 15:32 [email or web address]) Nutritional Asmnt/Malnutrition Patient General Information Nutritional Screening High Risk Diagnosis elevated troponin, hypoxia, possible PNA Pertinent Medical Hx/Surgical Hx HTN, CAD, asthma/COPD, PUD/ GERD, ESRD, dementia Subjective Information Pt seen on mask at time of visit. Pt was NPO for CT scheduled today, no PO intake information available. Current Diet Order/ Nutrition Support NPO Pertinent Medications vit C, colace, levaquin, synthorid, zofran, nacl 0.9%, piperacillin, protonix Pertinent Labs 08/16 Na 135, Glucose 190, A1c 5.1 Nutritional Hx/Data Height 1.63 m Height (Calculated Centimeters) 162.6 Current Weight (lbs) 73.936 kg Weight (Calculated Kilograms) 73.9 Weight (Calculated Grams) 84018.6 [place] Body Weight 120 Body Mass Index (BMI) 27.9 Weight Status Overweight GI Symptoms GI Symptoms None Last BM none Difficult in: None Skin Integrity/Comment: reddened to coccyx, buttocks Estimated Nutritional Goals BEE in Kcals: Using Current wt Calories/Kcals/Kg 23-27 Kcals Calculated 8162-9542 Protein g/k Protein Calculated 74 Fluid: ml 1702-1998ml (1ml/kcal) Nutritional Problem 1. Problem Problem altered nutrition related labs Etiology hyperglycemia Signs/Symptoms: glucose 190 at admission Malnutrition Alert Is there a minimum of two criteria No selected? Query Text:Check all the applicable criteria. A minimum of two criteria are recommended for diagnosis of either severe or non-severe malnutrition. Malnutrition Related to Morbid Obesity Malnutrition related to morbid obesity No Intervention/Recommendation Comments 1. Resume pureed GIOVANNI diet after CT exam. Assist pt with meals. If glucose continue high, will consider adding CCHO diet. 2. Monitor PO intake, wt, labs and skin integrity 3. F/U as high risk in 2-3 days, 08/19-08/20 Expected Outcomes/Goals Expected Outcomes/Goals 1. PO intake to meet at least 75% of nutritional needs. 2. Wt stability, skin to remain intact, labs to approach WNL.
[2017-08-22] MEDS: INSULIN ASPART SLIDING SCALE 100 UNITS/ML UNIT SUBQ SCH ×4 (00:09→18:46)
[2017-08-22] MEDS: Diltiazem 30 mg Tab PO SCH ×4 (00:09→18:46)
[2017-08-22] MEDS: Levofloxacin 250mg/50mL 250 MG/50 ML BAG IV SCH (00:11)
[2017-08-22] MEDS: Hydrocodone/APAP 5mg/325mg Tab PO SCH ×4 (05:05→21:15)
[2017-08-22] MEDS: Amino Acids 3% / Electrolytes 1,000 ML IV SCH (05:52)
[2017-08-22 06:19] LABS: ALB/GLOB RATIO 0.8 (1.0-1.8); ALBUMIN 2.3 gm/dL (3.7-5.3); ALKALINE PHOSPHATASE 53 U/L (34-104); ANION GAP 11.1 (7.0-16.0); BILIRUBIN,TOTAL 0.6 mg/dL (0.3-1.0); BUN - UREA NITROGEN 43 mg/dL (7-25); CALCIUM SERUM 7.6 mg/dL (8.6-10.3); CARBON DIOXIDE 17.4 mEq/L (21.0-31.0); CHLORIDE 118 mEq/L (98-107); CREATININE - SERUM 1.9 mg/dL (0.6-1.2); GLUCOSE 128 mg/dL (70-105); PHOSPHOROUS 1.2 mg/dL (2.5-5.0); POTASSIUM SERUM 4.5 mEq/L (3.5-5.1); SGOT 190 U/L (13-39); SGPT/ALT 461 U/L (7-52); SODIUM SERUM 142 mEq/L (136-145); TOTAL PROTEIN,SERUM 5.1 gm/dL (6.0-8.3)
[2017-08-22] MEDS: Levothyroxine 0.025 Mg Tab PO SCH (06:38)
--- NOTE | 2017-08-22 07:37 | GI Progress Note ---
Subjective - Review of Systems Subjective: NO EVENTS Objective - Results Result Diagrams: 08/19/17 09:59 08/22/17 05:50 Recent Labs: Laboratory Last Values WBC 10.8 Th/cmm (4.8-10.8) 08/19/17 09:59 RBC 4.07 Mil/cmm (3.80-5.20) 08/19/17 09:59 Hgb 12.6 gm/dL (12-16) 08/19/17 09:59 Hct 37.3 % (41.0-60) L 08/19/17 09:59 MCV 91.9 fl (81-100) 08/19/17 09:59 MCH 31.1 pg (27.0-31.0) H 08/19/17 09:59 MCHC Differential 33.8 pg (28.0-36.0) 08/19/17 09:59 RDW 14.3 % (11.5-20.0) 08/19/17 09:59 Plt Count 199 Th/cmm (150-400) 08/19/17 09:59 MPV 7.7 fl 08/19/17 09:59 Neutrophils % 78.3 % (40.0-80.0) 08/19/17 09:59 Lymphocytes % 15.6 % (20.0-50.0) L 08/19/17 09:59 Monocytes % 5.9 % (2.0-10.0) 08/19/17 09:59 Eosinophils % 0.1 % (0.0-5.0) 08/19/17 09:59 Basophils % 0.1 % (0.0-2.0) 08/19/17 09:59 PT 15.5 SECONDS (9.5-11.5) H 08/19/17 11:49 INR 1.46 (0.5-1.4) H 08/19/17 11:49 PTT (Actin FS) 34.3 SECONDS (26.0-38.0) 08/19/17 11:49 Specimen Source arterial 08/16/17 18:58 Sample Site rr 08/16/17 18:58 pH 7.38 (7.35-7.45) 08/16/17 18:58 pCO2 41.0 mmHg (35.0-45.0) 08/16/17 18:58 pO2 44.0 mmHg (80.0-100.0) L* 08/16/17 18:58 HCO3 23.9 mEq/L (20.0-26.0) 08/16/17 18:58 Base Excess -0.8 mEq/L (-3.0-3.0) 08/16/17 18:58 O2 Saturation 79.0 % (92.0-100.0) L 08/16/17 18:58 Kael Test y 08/16/17 18:58 Vent Rate N/A 08/16/17 18:58 Inspired O2 36 08/16/17 18:58 Tidal Volume N/A 08/16/17 18:58 PEEP N/A 08/16/17 18:58 Pressure (ins/psv/peep) N/A 08/16/17 18:58 Critical Value MM/JY 08/16/17 18:58 Sodium 142 mEq/L (136-145) 08/22/17 05:50 Potassium 4.5 mEq/L (3.5-5.1) 08/22/17 05:50 Chloride 118 mEq/L (98-107) H 08/22/17 05:50 Carbon Dioxide 17.4 mEq/L (21.0-31.0) L 08/22/17 05:50 Anion Gap 11.1 (7.0-16.0) 08/22/17 05:50 BUN 43 mg/dL (7-25) H 08/22/17 05:50 Creatinine 1.9 mg/dL (0.6-1.2) H 08/22/17 05:50 Est GFR ( Amer) TNP 08/22/17 05:50 Est GFR (Non-Af Amer) [facility] 08/22/17 05:50 BUN/Creatinine Ratio 22.6 08/22/17 05:50 Glucose 128 mg/dL (70-105) H 08/22/17 05:50 POC Glucose 132 MG/DL (70 - 105) H 08/21/17 18:13 Hemoglobin A1c % 5.1 % (4.0-6.0) 08/16/17 18:40 Calcium 7.6 mg/dL (8.6-10.3) L 08/22/17 05:50 Phosphorus 1.2 mg/dL (2.5-5.0) L 08/22/17 05:50 Magnesium 2.0 mg/dL (1.9-2.7) 08/22/17 05:50 Total Bilirubin 0.6 mg/dL (0.3-1.0) 08/22/17 05:50 Direct Bilirubin 0.24 mg/dL (0.0-0.2) H 08/21/17 04:30 AST 190 U/L (13-39) H 08/22/17 05:50 ALT 461 U/L (7-52) H 08/22/17 05:50 Alkaline Phosphatase 53 U/L (34-104) 08/22/17 05:50 Creatine Kinase 21 U/L (30-223) L 08/16/17 18:40 Troponin I 5.84 ng/mL (0.01-0.05) H* D 08/20/17 05:00 B-Natriuretic Peptide > 5000.0 pg/mL (5.0-100.0) H 08/22/17 05:50 Total Protein 5.1 gm/dL (6.0-8.3) L 08/22/17 05:50 Albumin 2.3 gm/dL (3.7-5.3) L 08/22/17 05:50 Globulin 2.8 gm/dL 08/22/17 05:50 Albumin/Globulin Ratio 0.8 (1.0-1.8) L 08/22/17 05:50 Triglycerides 149 mg/dL (<150) 08/19/17 12:37 Cholesterol 84 mg/dL (<200) 08/19/17 12:37 LDL Cholesterol Direct 47 mg/dL (75-193) L 08/19/17 12:37 HDL Cholesterol 18 mg/dL (23-92) L 08/19/17 12:37 Amylase 12 U/L (29-103) L 08/16/17 18:40 Lipase 6 U/L (11-82) L 08/16/17 18:40 TSH 1.72 uIU/ml (0.34-5.60) 08/19/17 09:59 Urine Source CATH 08/17/17 05:05 Urine Color YELLOW 08/17/17 05:05 Urine Clarity TURBID (CLEAR) H 08/17/17 05:05 Urine pH 5.5 (4.6 - 8.0) 08/17/17 05:05 Ur Specific [place] 1.020 (1.005-1.030) 08/17/17 05:05 Urine Protein TRACE mg/dL (NEGATIVE) 08/17/17 05:05 Urine Glucose (UA) NEGATIVE mg/dL (NEGATIVE) 08/17/17 05:05 Urine Ketones 15 mg/dL (NEGATIVE) H 08/17/17 05:05 Urine Blood NEGATIVE (NEGATIVE) 08/17/17 05:05 Urine Nitrate POSITIVE (NEGATIVE) H 08/17/17 05:05 Urine Bilirubin NEGATIVE (NEGATIVE) 08/17/17 05:05 Urine Urobilinogen 1.0 E.U./dL (0.2 - 1.0) 08/17/17 05:05 Ur Leukocyte Esterase MODERATE (NEGATIVE) H 08/17/17 05:05 Urine RBC 0-2 /hpf (0-5) 08/17/17 05:05 Urine WBC 50-100 /hpf (0-5) H 08/17/17 05:05 Ur Epithelial Cells MODERATE /lpf (FEW) 08/17/17 05:05 Urine Bacteria 4+ /hpf (NONE SEEN) H 08/17/17 05:05 Acetaminophen < 10.0 ug/mL (10.0-30.0) L 08/21/17 04:30 - Physical Exam Vitals and I&O: Vital Signs Temp 98.2 F 08/22/17 06:00 Pulse 85 08/22/17 07:08 Resp 17 08/22/17 07:08 BP 134/43 08/22/17 06:00 Pulse Ox 95 08/22/17 07:08 Intake & Output 08/21/17 08/22/17 08/22/17 18:59 06:59 18:59 Intake Total 2142.5 1100 Balance 2142.5 1100 Weight (lbs) 79.832 kg 80.286 kg Intake: Intake, IV Amount 1542.5 1100 Amino Acids 3% / 855 1000 Electrolytes 1,000 ml @ 50 mls/hr IV .Q20H [facility] Rx #:[id number] D5-0.9%Ns 1,000 ml @ 75 587.5 mls/hr IV .[id number] [facility] Rx #:[id number] metroNIDAZOLE 500mg/NS 100 100 100mL 500 mg In 100 ml @ 100 mls/hr IV Q12HR [facility] Rx#:[id number] TPN/PPN 600 Other: # Voids 2 3 # Bowel Movements 0 Weight Source Bedscale Bedscale Active Medications: Current Medications Acetaminophen (Tylenol) 650 mg PO Q6H PRN PRN Reason: Pain (Mild) Stop: 10/16/17 02:01 Acetaminophen/Hydrocodone Bitart ([place] 5mg/325mg) 1 tab PO Q6H [facility] Stop: 10/15/17 21:29 Last Admin: 08/22/17 05:05 Dose: Not Given Albuterol Sulfate (Albuterol 2.5mg/3ml Neb Ud) 1.25 mg HHN Q2HRT PRN PRN Reason: Shortness of Breath Stop: 10/16/17 02:12 Last Admin: 08/20/17 19:19 Dose: 1.25 mg Ascorbic Acid (Vitamin C) 500 mg PO DAILY [facility] Stop: 10/16/17 08:59 Last Admin: 08/21/17 08:36 Dose: Not Given Atorvastatin Calcium (Lipitor) 10 mg PO DAILY [facility]; Protocol Stop: 10/19/17 08:59 Last Admin: 08/21/17 08:37 Dose: Not Given Carvedilol (Coreg) 6.25 mg PO BID [facility] Stop: 10/17/17 16:59 Last Admin: 08/21/17 16:30 Dose: Not Given Clopidogrel Bisulfate (Plavix) 75 mg PO DAILY [facility] Stop: 10/16/17 08:59 Last Admin: 08/21/17 08:36 Dose: Not Given Diltiazem HCl (Cardizem) 60 mg PO Q6HR [facility] Stop: 10/17/17 17:59 Last Admin: 08/22/17 06:08 Dose: Not Given Diltiazem HCl (Cardizem) 5 mg IVP Q6H PRN PRN Reason: HR more than 125bpm Stop: 10/19/17 03:29 Docusate Sodium (Colace) 100 mg PO BID [facility] Stop: 10/16/17 08:59 Last Admin: 08/21/17 18:02 Dose: Not Given Donepezil HCl (Aricept) 10 mg PO HS [facility] Stop: 10/15/17 21:59 Last Admin: 08/21/17 20:22 Dose: Not Given Enoxaparin Sodium (Lovenox) 80 mg SUBQ DAILY [facility] Stop: 10/19/17 08:59 Last Admin: 08/21/17 08:37 Dose: Not Given Enoxaparin Sodium 80 mg/ (Enoxaparin Sodium 40 mg) 120 mg SUBQ DAILY@1400 [facility] Stop: 10/21/17 13:59 Gabapentin (Neurontin) 600 mg PO Q6HR [facility] Stop: 10/16/17 05:59 Last Admin: 08/22/17 06:09 Dose: Not Given Hydromorphone HCl (Dilaudid) 1 mg IVP Q6H PRN PRN Reason: Pain (Moderate) Stop: 10/17/17 16:38 Last Admin: 08/21/17 10:59 Dose: 1 mg Hydromorphone HCl (Dilaudid) 2 mg IVP Q6H PRN PRN Reason: SEVERE PAIN Stop: 10/17/17 21:10 Last Admin: 08/21/17 23:45 Dose: 2 mg Levofloxacin (Levaquin Pb) 250 mg in 50 mls @ 50 mls/hr IV Q24HR [facility] Stop: 10/16/17 00:59 Last Admin: 08/22/17 00:11 Dose: 50 mls/hr Metronidazole (Flagyl) 500 mg in 100 mls @ 100 mls/hr IV Q12HR [facility] Stop: 10/18/17 20:59 Last Infusion: 08/21/17 22:06 Dose: Infused Amikacin Sulfate 375 mg/ (Dextrose) 101.5 mls @ 100 mls/hr IV Q48HR [facility] Stop: 10/19/17 08:59 Last Infusion: 08/20/17 09:45 Dose: Infused Amino Acids/Electrolytes (Procalamine) 1,000 mls @ 50 mls/hr IV .Q20H [facility] Stop: 10/19/17 15:59 Last Admin: 08/22/17 05:52 Dose: 50 mls/hr Dextrose/Sodium Chloride (D5-0.9%Ns) 1,000 mls @ 50 mls/hr IV .Q20H [facility] Stop: 10/20/17 14:14 Insulin Aspart (Novolog Insulin Sliding Scale) 0 units SUBQ Q6HR [facility]; Protocol Stop: 10/19/17 17:59 Last Admin: 08/22/17 06:09 Dose: Not Given Levothyroxine Sodium (Synthroid) 0.025 mg PO DAILY@0730 [facility] Stop: 10/16/17 07:29 Last Admin: 08/22/17 06:38 Dose: Not Given Lorazepam (Ativan) 0.5 mg IVP Q6HR PRN; Protocol PRN Reason: Agitation Stop: 10/18/17 11:03 Last Admin: 08/22/17 02:14 Dose: 0.5 mg Miscellaneous (Amikacin Iv Per Pharmacy) 1 [facility] PRN PRN PRN Reason: Protocol Stop: 10/18/17 15:52 Miscellaneous (Lovenox Subq Per Pharmacy) 1 [facility] PRN PRN PRN Reason: PROTOCOL Stop: 10/18/17 11:40 Miscellaneous (Ppn Per Pharmacy) 1 [facility] PRN PRN PRN Reason: PROTOCOL Stop: 10/19/17 10:04 Montelukast Sodium (Singulair) 10 mg PO DAILY [facility] Stop: 10/16/17 08:59 Last Admin: 08/21/17 08:37 Dose: Not Given Morphine Sulfate (Morphine) 1 mg IVP Q4HR PRN PRN Reason: Moderate Pain Stop: 10/15/17 21:35 Last Admin: 08/21/17 03:48 Dose: 1 mg Mupirocin (Bactroban Oint) 1 appl NS BID [facility] Stop: 08/23/17 09:01 Last Admin: 08/21/17 18:14 Dose: 1 appl Ondansetron HCl (Zofran) 4 mg IV Q6H PRN PRN Reason: Nausea / Vomiting Stop: 10/15/17 21:34 Last Admin: 08/18/17 16:26 Dose: 4 mg Pantoprazole Sodium (Protonix) 40 mg IVP DAILY [facility] Stop: 10/19/17 08:59 Last Admin: 08/21/17 09:05 Dose: 40 mg Prednisone (Deltasone) 5 mg PO DAILY [facility] Stop: 10/16/17 08:59 Last Admin: 08/21/17 08:37 Dose: Not Given General: Mild distress (confused) Neck: Supple Cardiovascular: Regular rate Lungs: Clear to auscultation Abdomen: Bowel sounds, Soft, Tender (LLQ), Distended (MILD) Assessment/Plan - Assessment Assessment: 87 YO FEMALE WITH SIGMOID DIVERTICULITIS. MAY ALSO HAVE ISCHEMIC COLITIS. ALSO WITH CHOLELITHIASIS AND ELEVATED TRANSAMINASES - R/O ISCHEMIC HEPATITIS VS. CONGESTION FROM CHF. 1. ABX. 2. NPO AND TPN. 3. PER CARDS TO OPTIMIZE CARDIAC FUNCTION. 4. FAILED SWALLOW EVAL. POLST OUTLINED WISH FOR DNR AND NO ARTIFICIAL FEEDING. 5. CHECK HIDA
[2017-08-22] MEDS: Albuterol Nebulizer 2.5mg/3mL HHN PRN (07:39)
[2017-08-22] MEDS: Atorvastatin Calcium 10 MG TAB PO SCH (08:26)
[2017-08-22] MEDS: Enoxaparin 80 mg/0.8 mL 0.8mL Syr SUBQ SCH (08:26)
[2017-08-22] MEDS: metroNIDAZOLE 500mg/NS 100mL 500 MG/100 ML BAG IV SCH ×2 (08:31→20:00)
[2017-08-22] MEDS ORDERED: Sodium Phosphate 30 MMOLE in Sodium Chloride 0.9% 250 ML IV ONE (09:00)
[2017-08-22] MEDS ORDERED: Sodium Phosphate 40 MMOLE in Sodium Chloride 0.9% 250 ML IV ONE (09:00)
[2017-08-22] MEDS: HYDROmorphone 2 mg/mL 1mL Vial IVP PRN ×2 (15:20→21:16)
[2017-08-22] MEDS: TPN 8.5%-70% CUSTOM IV SCH (16:11)
--- NOTE | 2017-08-22 20:28 | General Progress Note ---
Subjective - Review of Systems Service Date: 08/22/17 Subjective: awake, nad Objective - Results Result Diagrams: 08/19/17 09:59 08/22/17 05:50 Recent Labs: Laboratory Last Values WBC 10.8 Th/cmm (4.8-10.8) 08/19/17 09:59 RBC 4.07 Mil/cmm (3.80-5.20) 08/19/17 09:59 Hgb 12.6 gm/dL (12-16) 08/19/17 09:59 Hct 37.3 % (41.0-60) L 08/19/17 09:59 MCV 91.9 fl (81-100) 08/19/17 09:59 MCH 31.1 pg (27.0-31.0) H 08/19/17 09:59 MCHC Differential 33.8 pg (28.0-36.0) 08/19/17 09:59 RDW 14.3 % (11.5-20.0) 08/19/17 09:59 Plt Count 199 Th/cmm (150-400) 08/19/17 09:59 MPV 7.7 fl 08/19/17 09:59 Neutrophils % 78.3 % (40.0-80.0) 08/19/17 09:59 Lymphocytes % 15.6 % (20.0-50.0) L 08/19/17 09:59 Monocytes % 5.9 % (2.0-10.0) 08/19/17 09:59 Eosinophils % 0.1 % (0.0-5.0) 08/19/17 09:59 Basophils % 0.1 % (0.0-2.0) 08/19/17 09:59 PT 15.5 SECONDS (9.5-11.5) H 08/19/17 11:49 INR 1.46 (0.5-1.4) H 08/19/17 11:49 PTT (Actin FS) 34.3 SECONDS (26.0-38.0) 08/19/17 11:49 Specimen Source arterial 08/16/17 18:58 Sample Site rr 08/16/17 18:58 pH 7.38 (7.35-7.45) 08/16/17 18:58 pCO2 41.0 mmHg (35.0-45.0) 08/16/17 18:58 pO2 44.0 mmHg (80.0-100.0) L* 08/16/17 18:58 HCO3 23.9 mEq/L (20.0-26.0) 08/16/17 18:58 Base Excess -0.8 mEq/L (-3.0-3.0) 08/16/17 18:58 O2 Saturation 79.0 % (92.0-100.0) L 08/16/17 18:58 Kael Test y 08/16/17 18:58 Vent Rate N/A 08/16/17 18:58 Inspired O2 36 08/16/17 18:58 Tidal Volume N/A 08/16/17 18:58 PEEP N/A 08/16/17 18:58 Pressure (ins/psv/peep) N/A 08/16/17 18:58 Critical Value MM/JY 08/16/17 18:58 Sodium 142 mEq/L (136-145) 08/22/17 05:50 Potassium 4.5 mEq/L (3.5-5.1) 08/22/17 05:50 Chloride 118 mEq/L (98-107) H 08/22/17 05:50 Carbon Dioxide 17.4 mEq/L (21.0-31.0) L 08/22/17 05:50 Anion Gap 11.1 (7.0-16.0) 08/22/17 05:50 BUN 43 mg/dL (7-25) H 08/22/17 05:50 Creatinine 1.9 mg/dL (0.6-1.2) H 08/22/17 05:50 Est GFR ( Amer) TNP 08/22/17 05:50 Est GFR (Non-Af Amer) TNP 08/22/17 05:50 BUN/Creatinine Ratio 22.6 08/22/17 05:50 Glucose 128 mg/dL (70-105) H 08/22/17 05:50 POC Glucose 135 MG/DL (70 - 105) H 08/22/17 18:25 Hemoglobin A1c % 5.1 % (4.0-6.0) 08/16/17 18:40 Calcium 7.6 mg/dL (8.6-10.3) L 08/22/17 05:50 Phosphorus 1.2 mg/dL (2.5-5.0) L 08/22/17 05:50 Magnesium 2.0 mg/dL (1.9-2.7) 08/22/17 05:50 Total Bilirubin 0.6 mg/dL (0.3-1.0) 08/22/17 05:50 Direct Bilirubin 0.24 mg/dL (0.0-0.2) H 08/21/17 04:30 AST 190 U/L (13-39) H 08/22/17 05:50 ALT 461 U/L (7-52) H 08/22/17 05:50 Alkaline Phosphatase 53 U/L (34-104) 08/22/17 05:50 Creatine Kinase 21 U/L (30-223) L 08/16/17 18:40 Troponin I 0.80 ng/mL (0.01-0.05) H* D 08/22/17 05:50 B-Natriuretic Peptide > 5000.0 pg/mL (5.0-100.0) H 08/22/17 05:50 Total Protein 5.1 gm/dL (6.0-8.3) L 08/22/17 05:50 Albumin 2.3 gm/dL (3.7-5.3) L 08/22/17 05:50 Globulin 2.8 gm/dL 08/22/17 05:50 Albumin/Globulin Ratio 0.8 (1.0-1.8) L 08/22/17 05:50 Triglycerides 149 mg/dL (<150) 08/19/17 12:37 Cholesterol 84 mg/dL (<200) 08/19/17 12:37 LDL Cholesterol Direct 47 mg/dL (75-193) L 08/19/17 12:37 HDL Cholesterol 18 mg/dL (23-92) L 08/19/17 12:37 Amylase 12 U/L (29-103) L 08/16/17 18:40 Lipase 6 U/L (11-82) L 08/16/17 18:40 TSH 1.72 uIU/ml (0.34-5.60) 08/19/17 09:59 Urine Source CATH 08/17/17 05:05 Urine Color YELLOW 08/17/17 05:05 Urine Clarity TURBID (CLEAR) H 08/17/17 05:05 Urine pH 5.5 (4.6 - 8.0) 08/17/17 05:05 Ur Specific [place] 1.020 (1.005-1.030) 08/17/17 05:05 Urine Protein TRACE mg/dL (NEGATIVE) 08/17/17 05:05 Urine Glucose (UA) NEGATIVE mg/dL (NEGATIVE) 08/17/17 05:05 Urine Ketones 15 mg/dL (NEGATIVE) H 08/17/17 05:05 Urine Blood NEGATIVE (NEGATIVE) 08/17/17 05:05 Urine Nitrate POSITIVE (NEGATIVE) H 08/17/17 05:05 Urine Bilirubin NEGATIVE (NEGATIVE) 08/17/17 05:05 Urine Urobilinogen 1.0 E.U./dL (0.2 - 1.0) 08/17/17 05:05 Ur Leukocyte Esterase MODERATE (NEGATIVE) H 08/17/17 05:05 Urine RBC 0-2 /hpf (0-5) 08/17/17 05:05 Urine WBC 50-100 /hpf (0-5) H 08/17/17 05:05 Ur Epithelial Cells MODERATE /lpf (FEW) 08/17/17 05:05 Urine Bacteria 4+ /hpf (NONE SEEN) H 08/17/17 05:05 Acetaminophen < 10.0 ug/mL (10.0-30.0) L 08/21/17 04:30 - Physical Exam Vitals and I&O: Vital Signs Temp 98.0 F 08/22/17 16:00 Pulse 111 08/22/17 19:55 Resp 20 08/22/17 19:55 BP 89/31 08/22/17 18:00 Pulse Ox 98 08/22/17 19:55 Intake & Output 08/22/17 08/22/17 08/23/17 06:59 18:59 06:59 Intake Total 1100 801.5 Balance 1100 801.5 Weight (lbs) 80.286 kg 80.286 kg Intake: Intake, IV Amount 1100 201.5 Amikacin 375 mg In 101.5 Dextrose 5% 100 ml @ 100 mls/hr IV Q48HR [facility] Rx#: [id number] Amino Acids 3% / 1000 Electrolytes 1,000 ml @ 50 mls/hr IV .Q20H [facility] Rx #:[id number] metroNIDAZOLE 500mg/NS 100 100 100mL 500 mg In 100 ml @ 100 mls/hr IV Q12HR [facility] Rx#:[id number] TPN/PPN 600 Other: # Voids 3 2 # Bowel Movements 0 Weight Source Bedscale Bedscale Active Medications: Current Medications Acetaminophen (Tylenol) 650 mg PO Q6H PRN PRN Reason: Pain (Mild) Stop: 10/16/17 02:01 Acetaminophen/Hydrocodone Bitart ([place] 5mg/325mg) 1 tab PO Q6H [facility] Stop: 10/15/17 21:29 Last Admin: 08/22/17 15:35 Dose: Not Given Albuterol Sulfate (Albuterol 2.5mg/3ml Neb Ud) 1.25 mg HHN Q2HRT PRN PRN Reason: Shortness of Breath Stop: 10/16/17 02:12 Last Admin: 08/22/17 07:39 Dose: 1.25 mg Ascorbic Acid (Vitamin C) 500 mg PO DAILY [facility] Stop: 10/16/17 08:59 Last Admin: 08/22/17 08:25 Dose: Not Given Atorvastatin Calcium (Lipitor) 10 mg PO DAILY [facility]; Protocol Stop: 10/19/17 08:59 Last Admin: 08/22/17 08:26 Dose: Not Given Carvedilol (Coreg) 6.25 mg PO BID [facility] Stop: 10/17/17 16:59 Last Admin: 08/22/17 16:11 Dose: Not Given Clopidogrel Bisulfate (Plavix) 75 mg PO DAILY [facility] Stop: 10/16/17 08:59 Last Admin: 08/22/17 08:25 Dose: Not Given Diltiazem HCl (Cardizem) 60 mg PO Q6HR [facility] Stop: 10/17/17 17:59 Last Admin: 08/22/17 18:46 Dose: Not Given Diltiazem HCl (Cardizem) 5 mg IVP Q6H PRN PRN Reason: HR more than 125bpm Stop: 10/19/17 03:29 Docusate Sodium (Colace) 100 mg PO BID [facility] Stop: 10/16/17 08:59 Last Admin: 08/22/17 17:01 Dose: Not Given Donepezil HCl (Aricept) 10 mg PO HS [facility] Stop: 10/15/17 21:59 Last Admin: 08/21/17 20:22 Dose: Not Given Enoxaparin Sodium 80 mg/ (Enoxaparin Sodium 40 mg) 120 mg SUBQ Q24H [facility] Stop: 10/21/17 15:59 Last Admin: 08/22/17 15:51 Dose: 120 mg Furosemide (Lasix) 40 mg IVP BID [facility] Stop: 10/21/17 16:59 Last Admin: 08/22/17 16:11 Dose: 40 mg Gabapentin (Neurontin) 600 mg PO Q6HR [facility] Stop: 10/16/17 05:59 Last Admin: 08/22/17 17:01 Dose: Not Given Hydromorphone HCl (Dilaudid) 1 mg IVP Q6H PRN PRN Reason: Pain (Moderate) Stop: 10/17/17 16:38 Last Admin: 08/21/17 10:59 Dose: 1 mg Hydromorphone HCl (Dilaudid) 2 mg IVP Q6H PRN PRN Reason: SEVERE PAIN Stop: 10/17/17 21:10 Last Admin: 08/22/17 15:20 Dose: 2 mg Levofloxacin (Levaquin Pb) 250 mg in 50 mls @ 50 mls/hr IV Q24HR [facility] Stop: 10/16/17 00:59 Last Admin: 08/22/17 00:11 Dose: 50 mls/hr Metronidazole (Flagyl) 500 mg in 100 mls @ 100 mls/hr IV Q12HR [facility] Stop: 10/18/17 20:59 Last Admin: 08/22/17 20:00 Dose: 100 mls/hr Amikacin Sulfate 375 mg/ (Dextrose) 101.5 mls @ 100 mls/hr IV Q48HR [facility] Stop: 10/19/17 08:59 Last Infusion: 08/22/17 11:05 Dose: Infused Multivitamins/Minerals 10 ml/Dextrose/ Amino Acids/Electrolytes 1,200 mls @ 50 mls/hr IV .Q24H [facility] Stop: 09/20/17 16:59 Last Admin: 08/22/17 16:11 Dose: 50 mls/hr Insulin Aspart (Novolog Insulin Sliding Scale) 0 units SUBQ Q6HR [facility]; Protocol Stop: 10/19/17 17:59 Last Admin: 08/22/17 18:46 Dose: Not Given Levothyroxine Sodium (Synthroid) 0.025 mg PO DAILY@0730 [facility] Stop: 10/16/17 07:29 Last Admin: 08/22/17 06:38 Dose: Not Given Lorazepam (Ativan) 0.5 mg IVP Q6HR PRN; Protocol PRN Reason: Agitation Stop: 10/18/17 11:03 Last Admin: 08/22/17 19:58 Dose: 0.5 mg Miscellaneous (Amikacin Iv Per Pharmacy) 1 [facility] PRN PRN PRN Reason: Protocol Stop: 10/18/17 15:52 Miscellaneous (Lovenox Subq Per Pharmacy) 1 [facility] PRN PRN PRN Reason: PROTOCOL Stop: 10/18/17 11:40 Miscellaneous (Ppn Per Pharmacy) 1 [facility] PRN PRN PRN Reason: PROTOCOL Stop: 10/19/17 10:04 Montelukast Sodium (Singulair) 10 mg PO DAILY [facility] Stop: 10/16/17 08:59 Last Admin: 08/22/17 08:25 Dose: Not Given Morphine Sulfate (Morphine) 1 mg IVP Q4HR PRN PRN Reason: Moderate Pain Stop: 10/15/17 21:35 Last Admin: 08/21/17 03:48 Dose: 1 mg Mupirocin (Bactroban Oint) 1 appl NS BID [facility] Stop: 08/23/17 09:01 Last Admin: 08/22/17 16:11 Dose: 1 appl Ondansetron HCl (Zofran) 4 mg IV Q6H PRN PRN Reason: Nausea / Vomiting Stop: 10/15/17 21:34 Last Admin: 08/18/17 16:26 Dose: 4 mg Pantoprazole Sodium (Protonix) 40 mg IVP DAILY [facility] Stop: 10/19/17 08:59 Last Admin: 08/22/17 08:27 Dose: 40 mg Prednisone (Deltasone) 5 mg PO DAILY [facility] Stop: 10/16/17 08:59 Last Admin: 08/22/17 08:25 Dose: Not Given General: Mild distress (confused) Neck: Supple Cardiovascular: Regular rate Lungs: Clear to auscultation Abdomen: Bowel sounds, Soft, Tender (LLQ), Distended (MILD) Assessment/Plan - Assessment Assessment: abdominal pain gastroenteritis cad copd pud gerd dementia - Plan Plan: iv vanco as per id cbc/bmp in am continue the rest of the orders Nutritional Asmnt/Malnutr-PDOC - Dietary Evaluation Malnutrition Findings (Please click <Entered> for more info): Nutritional Asmnt/Malnutrition Start: 08/17/17 14: 47 Text: Status: Complete Freq: Protocol: Document 08/17/17 14:47 [email or web address] (Rec: 08/17/17 15:32 [email or web address]) Nutritional Asmnt/Malnutrition Patient General Information Nutritional Screening High Risk Diagnosis elevated troponin, hypoxia, possible PNA Pertinent Medical Hx/Surgical Hx HTN, CAD, asthma/COPD, PUD/ GERD, ESRD, dementia Subjective Information Pt seen on mask at time of visit. Pt was NPO for CT scheduled today, no PO intake information available. Current Diet Order/ Nutrition Support NPO Pertinent Medications vit C, colace, levaquin, synthorid, zofran, nacl 0.9%, piperacillin, protonix Pertinent Labs 08/16 Na 135, Glucose 190, A1c 5.1 Nutritional Hx/Data Height 1.63 m Height (Calculated Centimeters) 162.6 Current Weight (lbs) 73.936 kg Weight (Calculated Kilograms) 73.9 Weight (Calculated Grams) 11860.6 [place] Body Weight 120 Body Mass Index (BMI) 27.9 Weight Status Overweight GI Symptoms GI Symptoms None Last BM none Difficult in: None Skin Integrity/Comment: reddened to coccyx, buttocks Estimated Nutritional Goals BEE in Kcals: Using Current wt Calories/Kcals/Kg 23-27 Kcals Calculated 8412-0219 Protein g/k Protein Calculated 74 Fluid: ml 1702-1998ml (1ml/kcal) Nutritional Problem 1. Problem Problem altered nutrition related labs Etiology hyperglycemia Signs/Symptoms: glucose 190 at admission Malnutrition Alert Is there a minimum of two criteria No selected? Query Text:Check all the applicable criteria. A minimum of two criteria are recommended for diagnosis of either severe or non-severe malnutrition. Malnutrition Related to Morbid Obesity Malnutrition related to morbid obesity No Intervention/Recommendation Comments 1. Resume pureed GIOVANNI diet after CT exam. Assist pt with meals. If glucose continue high, will consider adding CCHO diet. 2. Monitor PO intake, wt, labs and skin integrity 3. F/U as high risk in 2-3 days, 08/19-08/20 Expected Outcomes/Goals Expected Outcomes/Goals 1. PO intake to meet at least 75% of nutritional needs. 2. Wt stability, skin to remain intact, labs to approach WNL.
[2017-08-23] MEDS: Diltiazem 30 mg Tab PO SCH ×4 (00:05→18:27)
[2017-08-23] MEDS: Levofloxacin 250mg/50mL 250 MG/50 ML BAG IV SCH (00:11)
[2017-08-23] MEDS: INSULIN ASPART SLIDING SCALE 100 UNITS/ML UNIT SUBQ SCH ×4 (00:19→18:28)
[2017-08-23] MEDS: Hydrocodone/APAP 5mg/325mg Tab PO SCH ×4 (03:22→21:30)
[2017-08-23] MEDS: HYDROmorphone 2 mg/mL 1mL Vial IVP PRN ×3 (03:36→16:15)
[2017-08-23 06:12] LABS: ALB/GLOB RATIO 0.9 (1.0-1.8); ALBUMIN 2.4 gm/dL (3.7-5.3); ALKALINE PHOSPHATASE 47 U/L (34-104); ANION GAP 11.8 (7.0-16.0); BILIRUBIN,TOTAL 0.6 mg/dL (0.3-1.0); BUN - UREA NITROGEN 46 mg/dL (7-25); CALCIUM SERUM 7.5 mg/dL (8.6-10.3); CARBON DIOXIDE 16.3 mEq/L (21.0-31.0); CHLORIDE 118 mEq/L (98-107); CREATININE - SERUM 1.9 mg/dL (0.6-1.2); GLUCOSE 143 mg/dL (70-105); PHOSPHOROUS 4.2 mg/dL (2.5-5.0); POTASSIUM SERUM 4.1 mEq/L (3.5-5.1); SGOT 59 U/L (13-39); SGPT/ALT 287 U/L (7-52); SODIUM SERUM 142 mEq/L (136-145); TOTAL PROTEIN,SERUM 5.2 gm/dL (6.0-8.3)
[2017-08-23] MEDS: Levothyroxine 0.025 Mg Tab PO SCH (06:32)
[2017-08-23] MEDS: metroNIDAZOLE 500mg/NS 100mL 500 MG/100 ML BAG IV SCH ×2 (08:49→21:14)
[2017-08-23] MEDS: Atorvastatin Calcium 10 MG TAB PO SCH (08:59)
--- NOTE | 2017-08-23 09:15 | GI Progress Note ---
Subjective - Review of Systems Subjective: NO EVENTS Objective - Results Result Diagrams: 08/19/17 09:59 08/23/17 05:10 Recent Labs: Laboratory Last Values WBC 10.8 Th/cmm (4.8-10.8) 08/19/17 09:59 RBC 4.07 Mil/cmm (3.80-5.20) 08/19/17 09:59 Hgb 12.6 gm/dL (12-16) 08/19/17 09:59 Hct 37.3 % (41.0-60) L 08/19/17 09:59 MCV 91.9 fl (81-100) 08/19/17 09:59 MCH 31.1 pg (27.0-31.0) H 08/19/17 09:59 MCHC Differential 33.8 pg (28.0-36.0) 08/19/17 09:59 RDW 14.3 % (11.5-20.0) 08/19/17 09:59 Plt Count 199 Th/cmm (150-400) 08/19/17 09:59 MPV 7.7 fl 08/19/17 09:59 Neutrophils % 78.3 % (40.0-80.0) 08/19/17 09:59 Lymphocytes % 15.6 % (20.0-50.0) L 08/19/17 09:59 Monocytes % 5.9 % (2.0-10.0) 08/19/17 09:59 Eosinophils % 0.1 % (0.0-5.0) 08/19/17 09:59 Basophils % 0.1 % (0.0-2.0) 08/19/17 09:59 PT 15.5 SECONDS (9.5-11.5) H 08/19/17 11:49 INR 1.46 (0.5-1.4) H 08/19/17 11:49 PTT (Actin FS) 34.3 SECONDS (26.0-38.0) 08/19/17 11:49 Specimen Source arterial 08/16/17 18:58 Sample Site rr 08/16/17 18:58 pH 7.38 (7.35-7.45) 08/16/17 18:58 pCO2 41.0 mmHg (35.0-45.0) 08/16/17 18:58 pO2 44.0 mmHg (80.0-100.0) L* 08/16/17 18:58 HCO3 23.9 mEq/L (20.0-26.0) 08/16/17 18:58 Base Excess -0.8 mEq/L (-3.0-3.0) 08/16/17 18:58 O2 Saturation 79.0 % (92.0-100.0) L 08/16/17 18:58 Kael Test y 08/16/17 18:58 Vent Rate N/A 08/16/17 18:58 Inspired O2 36 08/16/17 18:58 Tidal Volume N/A 08/16/17 18:58 PEEP N/A 08/16/17 18:58 Pressure (ins/psv/peep) N/A 08/16/17 18:58 Critical Value MM/JY 08/16/17 18:58 Sodium 142 mEq/L (136-145) 08/23/17 05:10 Potassium 4.1 mEq/L (3.5-5.1) 08/23/17 05:10 Chloride 118 mEq/L (98-107) H 08/23/17 05:10 Carbon Dioxide 16.3 mEq/L (21.0-31.0) L 08/23/17 05:10 Anion Gap 11.8 (7.0-16.0) 08/23/17 05:10 BUN 46 mg/dL (7-25) H 08/23/17 05:10 Creatinine 1.9 mg/dL (0.6-1.2) H 08/23/17 05:10 Est GFR ( Amer) TNP 08/23/17 05:10 Est GFR (Non-Af Amer) [facility] 08/23/17 05:10 BUN/Creatinine Ratio 24.2 08/23/17 05:10 Glucose 143 mg/dL (70-105) H 08/23/17 05:10 POC Glucose 135 MG/DL (70 - 105) H 08/22/17 18:25 Hemoglobin A1c % 5.1 % (4.0-6.0) 08/16/17 18:40 Calcium 7.5 mg/dL (8.6-10.3) L 08/23/17 05:10 Phosphorus 4.2 mg/dL (2.5-5.0) 08/23/17 05:10 Magnesium 2.0 mg/dL (1.9-2.7) 08/23/17 05:10 Total Bilirubin 0.6 mg/dL (0.3-1.0) 08/23/17 05:10 Direct Bilirubin 0.24 mg/dL (0.0-0.2) H 08/21/17 04:30 AST 59 U/L (13-39) H 08/23/17 05:10 ALT 287 U/L (7-52) H 08/23/17 05:10 Alkaline Phosphatase 47 U/L (34-104) 08/23/17 05:10 Creatine Kinase 21 U/L (30-223) L 08/16/17 18:40 Troponin I 0.80 ng/mL (0.01-0.05) H* D 08/22/17 05:50 B-Natriuretic Peptide > 5000.0 pg/mL (5.0-100.0) H 08/23/17 05:10 Total Protein 5.2 gm/dL (6.0-8.3) L 08/23/17 05:10 Albumin 2.4 gm/dL (3.7-5.3) L 08/23/17 05:10 Globulin 2.8 gm/dL 08/23/17 05:10 Albumin/Globulin Ratio 0.9 (1.0-1.8) L 08/23/17 05:10 Triglycerides 149 mg/dL (<150) 08/19/17 12:37 Cholesterol 84 mg/dL (<200) 08/19/17 12:37 LDL Cholesterol Direct 47 mg/dL (75-193) L 08/19/17 12:37 HDL Cholesterol 18 mg/dL (23-92) L 08/19/17 12:37 Amylase 12 U/L (29-103) L 08/16/17 18:40 Lipase 6 U/L (11-82) L 08/16/17 18:40 TSH 1.72 uIU/ml (0.34-5.60) 08/19/17 09:59 Urine Source CATH 08/17/17 05:05 Urine Color YELLOW 08/17/17 05:05 Urine Clarity TURBID (CLEAR) H 08/17/17 05:05 Urine pH 5.5 (4.6 - 8.0) 08/17/17 05:05 Ur Specific [place] 1.020 (1.005-1.030) 08/17/17 05:05 Urine Protein TRACE mg/dL (NEGATIVE) 08/17/17 05:05 Urine Glucose (UA) NEGATIVE mg/dL (NEGATIVE) 08/17/17 05:05 Urine Ketones 15 mg/dL (NEGATIVE) H 08/17/17 05:05 Urine Blood NEGATIVE (NEGATIVE) 08/17/17 05:05 Urine Nitrate POSITIVE (NEGATIVE) H 08/17/17 05:05 Urine Bilirubin NEGATIVE (NEGATIVE) 08/17/17 05:05 Urine Urobilinogen 1.0 E.U./dL (0.2 - 1.0) 08/17/17 05:05 Ur Leukocyte Esterase MODERATE (NEGATIVE) H 08/17/17 05:05 Urine RBC 0-2 /hpf (0-5) 08/17/17 05:05 Urine WBC 50-100 /hpf (0-5) H 08/17/17 05:05 Ur Epithelial Cells MODERATE /lpf (FEW) 08/17/17 05:05 Urine Bacteria 4+ /hpf (NONE SEEN) H 08/17/17 05:05 Acetaminophen < 10.0 ug/mL (10.0-30.0) L 08/21/17 04:30 - Physical Exam Vitals and I&O: Vital Signs Temp 98.4 F 08/23/17 06:00 Pulse 95 08/23/17 08:59 Resp 22 08/23/17 08:18 BP 107/33 08/23/17 09:00 Pulse Ox 96 08/23/17 07:50 Intake & Output 08/22/17 08/23/17 08/23/17 18:59 06:59 18:59 Intake Total 801.5 363.3333 Balance 801.5 363.3333 Weight (lbs) 80.286 kg 73.482 kg Intake: Intake, IV Amount 201.5 363.3333 Amikacin 375 mg In 101.5 Dextrose 5% 100 ml @ 100 mls/hr IV Q48HR [facility] Rx#: [id number] metroNIDAZOLE 500mg/NS 100 100 100mL 500 mg In 100 ml @ 100 mls/hr IV Q12HR [facility] Rx#:[id number] TPN/PPN 600 Other: # Voids 2 4 # Bowel Movements 0 1 Stool Characteristics Soft Formed Brown Weight Source Bedscale Bedscale Active Medications: Current Medications Acetaminophen (Tylenol) 650 mg PO Q6H PRN PRN Reason: Pain (Mild) Stop: 10/16/17 02:01 Acetaminophen/Hydrocodone Bitart ([place] 5mg/325mg) 1 tab PO Q6H [facility] Stop: 10/15/17 21:29 Last Admin: 08/23/17 03:22 Dose: Not Given Albuterol Sulfate (Albuterol 2.5mg/3ml Neb Ud) 1.25 mg HHN Q2HRT PRN PRN Reason: Shortness of Breath Stop: 10/16/17 02:12 Last Admin: 08/22/17 07:39 Dose: 1.25 mg Ascorbic Acid (Vitamin C) 500 mg PO DAILY [facility] Stop: 10/16/17 08:59 Last Admin: 08/23/17 08:59 Dose: Not Given Atorvastatin Calcium (Lipitor) 10 mg PO DAILY [facility]; Protocol Stop: 10/19/17 08:59 Last Admin: 08/23/17 08:59 Dose: Not Given Carvedilol (Coreg) 6.25 mg PO BID [facility] Stop: 10/17/17 16:59 Last Admin: 08/23/17 08:59 Dose: Not Given Clopidogrel Bisulfate (Plavix) 75 mg PO DAILY [facility] Stop: 10/16/17 08:59 Last Admin: 08/23/17 09:00 Dose: Not Given Diltiazem HCl (Cardizem) 60 mg PO Q6HR [facility] Stop: 10/17/17 17:59 Last Admin: 08/23/17 06:13 Dose: Not Given Diltiazem HCl (Cardizem) 5 mg IVP Q6H PRN PRN Reason: HR more than 125bpm Stop: 10/19/17 03:29 Docusate Sodium (Colace) 100 mg PO BID [facility] Stop: 10/16/17 08:59 Last Admin: 08/23/17 09:00 Dose: Not Given Donepezil HCl (Aricept) 10 mg PO HS [facility] Stop: 10/15/17 21:59 Last Admin: 08/22/17 21:15 Dose: Not Given Enoxaparin Sodium 80 mg/ (Enoxaparin Sodium 40 mg) 120 mg SUBQ Q24H [facility] Stop: 10/21/17 15:59 Last Admin: 08/22/17 15:51 Dose: 120 mg Furosemide (Lasix) 40 mg IVP BID [facility] Stop: 10/21/17 16:59 Last Admin: 08/23/17 09:00 Dose: Not Given Gabapentin (Neurontin) 600 mg PO Q6HR [facility] Stop: 10/16/17 05:59 Last Admin: 08/23/17 06:14 Dose: Not Given Hydromorphone HCl (Dilaudid) 1 mg IVP Q6H PRN PRN Reason: Pain (Moderate) Stop: 10/17/17 16:38 Last Admin: 08/21/17 10:59 Dose: 1 mg Hydromorphone HCl (Dilaudid) 2 mg IVP Q6H PRN PRN Reason: SEVERE PAIN Stop: 10/17/17 21:10 Last Admin: 08/23/17 03:36 Dose: 2 mg Levofloxacin (Levaquin Pb) 250 mg in 50 mls @ 50 mls/hr IV Q24HR [facility] Stop: 10/16/17 00:59 Last Admin: 08/23/17 00:11 Dose: 50 mls/hr Metronidazole (Flagyl) 500 mg in 100 mls @ 100 mls/hr IV Q12HR [facility] Stop: 10/18/17 20:59 Last Admin: 08/23/17 08:49 Dose: 100 mls/hr Amikacin Sulfate 375 mg/ (Dextrose) 101.5 mls @ 100 mls/hr IV Q48HR [facility] Stop: 10/19/17 08:59 Last Infusion: 08/22/17 11:05 Dose: Infused Multivitamins/Minerals 10 ml/Dextrose/ Amino Acids/Electrolytes 1,200 mls @ 50 mls/hr IV .Q24H [facility] Stop: 09/20/17 16:59 Last Admin: 08/22/17 16:11 Dose: 50 mls/hr Insulin Aspart (Novolog Insulin Sliding Scale) 0 units SUBQ Q6HR [facility]; Protocol Stop: 10/19/17 17:59 Last Admin: 08/23/17 06:14 Dose: Not Given Levothyroxine Sodium (Synthroid) 0.025 mg PO DAILY@0730 [facility] Stop: 10/16/17 07:29 Last Admin: 08/23/17 06:32 Dose: Not Given Lorazepam (Ativan) 0.5 mg IVP Q6HR PRN; Protocol PRN Reason: Agitation Stop: 10/18/17 11:03 Last Admin: 08/22/17 19:58 Dose: 0.5 mg Miscellaneous (Amikacin Iv Per Pharmacy) 1 [facility] PRN PRN PRN Reason: Protocol Stop: 10/18/17 15:52 Miscellaneous (Lovenox Subq Per Pharmacy) 1 [facility] PRN PRN PRN Reason: PROTOCOL Stop: 10/18/17 11:40 Miscellaneous (Ppn Per Pharmacy) 1 [facility] PRN PRN PRN Reason: PROTOCOL Stop: 10/19/17 10:04 Montelukast Sodium (Singulair) 10 mg PO DAILY [facility] Stop: 10/16/17 08:59 Last Admin: 08/23/17 09:00 Dose: Not Given Morphine Sulfate (Morphine) 1 mg IVP Q4HR PRN PRN Reason: Moderate Pain Stop: 10/15/17 21:35 Last Admin: 08/21/17 03:48 Dose: 1 mg Ondansetron HCl (Zofran) 4 mg IV Q6H PRN PRN Reason: Nausea / Vomiting Stop: 10/15/17 21:34 Last Admin: 08/18/17 16:26 Dose: 4 mg Pantoprazole Sodium (Protonix) 40 mg IVP DAILY [facility] Stop: 10/19/17 08:59 Last Admin: 08/23/17 08:50 Dose: 40 mg Prednisone (Deltasone) 5 mg PO DAILY [facility] Stop: 10/16/17 08:59 Last Admin: 08/23/17 09:01 Dose: Not Given General: Mild distress (confused) Neck: Supple Cardiovascular: Regular rate Lungs: Clear to auscultation Abdomen: Bowel sounds, Soft, Tender (LLQ), Distended (MILD) Assessment/Plan - Assessment Assessment: 87 YO FEMALE WITH SIGMOID DIVERTICULITIS. MAY ALSO HAVE ISCHEMIC COLITIS. ALSO WITH CHOLELITHIASIS AND ELEVATED TRANSAMINASES HIDA SUGGEST CHOLECYSTITIS 1. ABX. 2. NPO AND TPN. 3. PER CARDS TO OPTIMIZE CARDIAC FUNCTION. 4. FAILED SWALLOW EVAL. POLST OUTLINED WISH FOR DNR AND NO ARTIFICIAL FEEDING. 5. SURGERY EVAL PER HOSPITALIST FOR CHOLECYSTITIS
--- NOTE | 2017-08-23 09:24 | General Progress Note ---
Subjective - Review of Systems Service Date: 08/23/17 Events since last encounter: pt is confused Subjective: awake, confused hidaz positive Objective - Results Result Diagrams: 08/19/17 09:59 08/23/17 05:10 Recent Labs: Laboratory Last Values WBC 10.8 Th/cmm (4.8-10.8) 08/19/17 09:59 RBC 4.07 Mil/cmm (3.80-5.20) 08/19/17 09:59 Hgb 12.6 gm/dL (12-16) 08/19/17 09:59 Hct 37.3 % (41.0-60) L 08/19/17 09:59 MCV 91.9 fl (81-100) 08/19/17 09:59 MCH 31.1 pg (27.0-31.0) H 08/19/17 09:59 MCHC Differential 33.8 pg (28.0-36.0) 08/19/17 09:59 RDW 14.3 % (11.5-20.0) 08/19/17 09:59 Plt Count 199 Th/cmm (150-400) 08/19/17 09:59 MPV 7.7 fl 08/19/17 09:59 Neutrophils % 78.3 % (40.0-80.0) 08/19/17 09:59 Lymphocytes % 15.6 % (20.0-50.0) L 08/19/17 09:59 Monocytes % 5.9 % (2.0-10.0) 08/19/17 09:59 Eosinophils % 0.1 % (0.0-5.0) 08/19/17 09:59 Basophils % 0.1 % (0.0-2.0) 08/19/17 09:59 PT 15.5 SECONDS (9.5-11.5) H 08/19/17 11:49 INR 1.46 (0.5-1.4) H 08/19/17 11:49 PTT (Actin FS) 34.3 SECONDS (26.0-38.0) 08/19/17 11:49 Specimen Source arterial 08/16/17 18:58 Sample Site rr 08/16/17 18:58 pH 7.38 (7.35-7.45) 08/16/17 18:58 pCO2 41.0 mmHg (35.0-45.0) 08/16/17 18:58 pO2 44.0 mmHg (80.0-100.0) L* 08/16/17 18:58 HCO3 23.9 mEq/L (20.0-26.0) 08/16/17 18:58 Base Excess -0.8 mEq/L (-3.0-3.0) 08/16/17 18:58 O2 Saturation 79.0 % (92.0-100.0) L 08/16/17 18:58 Kael Test y 08/16/17 18:58 Vent Rate N/A 08/16/17 18:58 Inspired O2 36 08/16/17 18:58 Tidal Volume N/A 08/16/17 18:58 PEEP N/A 08/16/17 18:58 Pressure (ins/psv/peep) N/A 08/16/17 18:58 Critical Value MM/JY 08/16/17 18:58 Sodium 142 mEq/L (136-145) 08/23/17 05:10 Potassium 4.1 mEq/L (3.5-5.1) 08/23/17 05:10 Chloride 118 mEq/L (98-107) H 08/23/17 05:10 Carbon Dioxide 16.3 mEq/L (21.0-31.0) L 08/23/17 05:10 Anion Gap 11.8 (7.0-16.0) 08/23/17 05:10 BUN 46 mg/dL (7-25) H 08/23/17 05:10 Creatinine 1.9 mg/dL (0.6-1.2) H 08/23/17 05:10 Est GFR ( Amer) TNP 08/23/17 05:10 Est GFR (Non-Af Amer) TNP 08/23/17 05:10 BUN/Creatinine Ratio 24.2 08/23/17 05:10 Glucose 143 mg/dL (70-105) H 08/23/17 05:10 POC Glucose 135 MG/DL (70 - 105) H 08/22/17 18:25 Hemoglobin A1c % 5.1 % (4.0-6.0) 08/16/17 18:40 Calcium 7.5 mg/dL (8.6-10.3) L 08/23/17 05:10 Phosphorus 4.2 mg/dL (2.5-5.0) 08/23/17 05:10 Magnesium 2.0 mg/dL (1.9-2.7) 08/23/17 05:10 Total Bilirubin 0.6 mg/dL (0.3-1.0) 08/23/17 05:10 Direct Bilirubin 0.24 mg/dL (0.0-0.2) H 08/21/17 04:30 AST 59 U/L (13-39) H 08/23/17 05:10 ALT 287 U/L (7-52) H 08/23/17 05:10 Alkaline Phosphatase 47 U/L (34-104) 08/23/17 05:10 Creatine Kinase 21 U/L (30-223) L 08/16/17 18:40 Troponin I 0.80 ng/mL (0.01-0.05) H* D 08/22/17 05:50 B-Natriuretic Peptide > 5000.0 pg/mL (5.0-100.0) H 08/23/17 05:10 Total Protein 5.2 gm/dL (6.0-8.3) L 08/23/17 05:10 Albumin 2.4 gm/dL (3.7-5.3) L 08/23/17 05:10 Globulin 2.8 gm/dL 08/23/17 05:10 Albumin/Globulin Ratio 0.9 (1.0-1.8) L 08/23/17 05:10 Triglycerides 149 mg/dL (<150) 08/19/17 12:37 Cholesterol 84 mg/dL (<200) 08/19/17 12:37 LDL Cholesterol Direct 47 mg/dL (75-193) L 08/19/17 12:37 HDL Cholesterol 18 mg/dL (23-92) L 08/19/17 12:37 Amylase 12 U/L (29-103) L 08/16/17 18:40 Lipase 6 U/L (11-82) L 08/16/17 18:40 TSH 1.72 uIU/ml (0.34-5.60) 08/19/17 09:59 Urine Source CATH 08/17/17 05:05 Urine Color YELLOW 08/17/17 05:05 Urine Clarity TURBID (CLEAR) H 08/17/17 05:05 Urine pH 5.5 (4.6 - 8.0) 08/17/17 05:05 Ur Specific [place] 1.020 (1.005-1.030) 08/17/17 05:05 Urine Protein TRACE mg/dL (NEGATIVE) 08/17/17 05:05 Urine Glucose (UA) NEGATIVE mg/dL (NEGATIVE) 08/17/17 05:05 Urine Ketones 15 mg/dL (NEGATIVE) H 08/17/17 05:05 Urine Blood NEGATIVE (NEGATIVE) 08/17/17 05:05 Urine Nitrate POSITIVE (NEGATIVE) H 08/17/17 05:05 Urine Bilirubin NEGATIVE (NEGATIVE) 08/17/17 05:05 Urine Urobilinogen 1.0 E.U./dL (0.2 - 1.0) 08/17/17 05:05 Ur Leukocyte Esterase MODERATE (NEGATIVE) H 08/17/17 05:05 Urine RBC 0-2 /hpf (0-5) 08/17/17 05:05 Urine WBC 50-100 /hpf (0-5) H 08/17/17 05:05 Ur Epithelial Cells MODERATE /lpf (FEW) 08/17/17 05:05 Urine Bacteria 4+ /hpf (NONE SEEN) H 08/17/17 05:05 Acetaminophen < 10.0 ug/mL (10.0-30.0) L 08/21/17 04:30 - Physical Exam Vitals and I&O: Vital Signs Temp 98.4 F 08/23/17 06:00 Pulse 95 08/23/17 08:59 Resp 22 08/23/17 08:18 BP 107/33 08/23/17 09:00 Pulse Ox 96 08/23/17 07:50 Intake & Output 08/22/17 08/23/17 08/23/17 18:59 06:59 18:59 Intake Total 801.5 363.3333 Balance 801.5 363.3333 Weight (lbs) 80.286 kg 73.482 kg Intake: Intake, IV Amount 201.5 363.3333 Amikacin 375 mg In 101.5 Dextrose 5% 100 ml @ 100 mls/hr IV Q48HR [facility] Rx#: [id number] metroNIDAZOLE 500mg/NS 100 100 100mL 500 mg In 100 ml @ 100 mls/hr IV Q12HR [facility] Rx#:[id number] TPN/PPN 600 Other: # Voids 2 4 # Bowel Movements 0 1 Stool Characteristics Soft Formed Brown Weight Source Bedscale Bedscale Active Medications: Current Medications Acetaminophen (Tylenol) 650 mg PO Q6H PRN PRN Reason: Pain (Mild) Stop: 10/16/17 02:01 Acetaminophen/Hydrocodone Bitart ([place] 5mg/325mg) 1 tab PO Q6H [facility] Stop: 10/15/17 21:29 Last Admin: 08/23/17 03:22 Dose: Not Given Albuterol Sulfate (Albuterol 2.5mg/3ml Neb Ud) 1.25 mg HHN Q2HRT PRN PRN Reason: Shortness of Breath Stop: 10/16/17 02:12 Last Admin: 08/22/17 07:39 Dose: 1.25 mg Ascorbic Acid (Vitamin C) 500 mg PO DAILY [facility] Stop: 10/16/17 08:59 Last Admin: 08/23/17 08:59 Dose: Not Given Atorvastatin Calcium (Lipitor) 10 mg PO DAILY [facility]; Protocol Stop: 10/19/17 08:59 Last Admin: 08/23/17 08:59 Dose: Not Given Carvedilol (Coreg) 6.25 mg PO BID [facility] Stop: 10/17/17 16:59 Last Admin: 08/23/17 08:59 Dose: Not Given Clopidogrel Bisulfate (Plavix) 75 mg PO DAILY [facility] Stop: 10/16/17 08:59 Last Admin: 08/23/17 09:00 Dose: Not Given Diltiazem HCl (Cardizem) 60 mg PO Q6HR [facility] Stop: 10/17/17 17:59 Last Admin: 08/23/17 06:13 Dose: Not Given Diltiazem HCl (Cardizem) 5 mg IVP Q6H PRN PRN Reason: HR more than 125bpm Stop: 10/19/17 03:29 Docusate Sodium (Colace) 100 mg PO BID [facility] Stop: 10/16/17 08:59 Last Admin: 08/23/17 09:00 Dose: Not Given Donepezil HCl (Aricept) 10 mg PO HS [facility] Stop: 10/15/17 21:59 Last Admin: 08/22/17 21:15 Dose: Not Given Enoxaparin Sodium 80 mg/ (Enoxaparin Sodium 40 mg) 120 mg SUBQ Q24H [facility] Stop: 10/21/17 15:59 Last Admin: 08/22/17 15:51 Dose: 120 mg Furosemide (Lasix) 40 mg IVP BID [facility] Stop: 10/21/17 16:59 Last Admin: 08/23/17 09:00 Dose: Not Given Gabapentin (Neurontin) 600 mg PO Q6HR [facility] Stop: 10/16/17 05:59 Last Admin: 08/23/17 06:14 Dose: Not Given Hydromorphone HCl (Dilaudid) 1 mg IVP Q6H PRN PRN Reason: Pain (Moderate) Stop: 10/17/17 16:38 Last Admin: 08/21/17 10:59 Dose: 1 mg Hydromorphone HCl (Dilaudid) 2 mg IVP Q6H PRN PRN Reason: SEVERE PAIN Stop: 10/17/17 21:10 Last Admin: 08/23/17 03:36 Dose: 2 mg Levofloxacin (Levaquin Pb) 250 mg in 50 mls @ 50 mls/hr IV Q24HR [facility] Stop: 10/16/17 00:59 Last Admin: 08/23/17 00:11 Dose: 50 mls/hr Metronidazole (Flagyl) 500 mg in 100 mls @ 100 mls/hr IV Q12HR [facility] Stop: 10/18/17 20:59 Last Admin: 08/23/17 08:49 Dose: 100 mls/hr Amikacin Sulfate 375 mg/ (Dextrose) 101.5 mls @ 100 mls/hr IV Q48HR [facility] Stop: 10/19/17 08:59 Last Infusion: 08/22/17 11:05 Dose: Infused Multivitamins/Minerals 10 ml/Dextrose/ Amino Acids/Electrolytes 1,200 mls @ 50 mls/hr IV .Q24H [facility] Stop: 09/20/17 16:59 Last Admin: 08/22/17 16:11 Dose: 50 mls/hr Insulin Aspart (Novolog Insulin Sliding Scale) 0 units SUBQ Q6HR [facility]; Protocol Stop: 10/19/17 17:59 Last Admin: 08/23/17 06:14 Dose: Not Given Levothyroxine Sodium (Synthroid) 0.025 mg PO DAILY@0730 [facility] Stop: 10/16/17 07:29 Last Admin: 08/23/17 06:32 Dose: Not Given Lorazepam (Ativan) 0.5 mg IVP Q6HR PRN; Protocol PRN Reason: Agitation Stop: 10/18/17 11:03 Last Admin: 08/22/17 19:58 Dose: 0.5 mg Miscellaneous (Amikacin Iv Per Pharmacy) 1 [facility] PRN PRN PRN Reason: Protocol Stop: 10/18/17 15:52 Miscellaneous (Lovenox Subq Per Pharmacy) 1 [facility] PRN PRN PRN Reason: PROTOCOL Stop: 10/18/17 11:40 Miscellaneous (Ppn Per Pharmacy) 1 [facility] PRN PRN PRN Reason: PROTOCOL Stop: 10/19/17 10:04 Montelukast Sodium (Singulair) 10 mg PO DAILY [facility] Stop: 10/16/17 08:59 Last Admin: 08/23/17 09:00 Dose: Not Given Morphine Sulfate (Morphine) 1 mg IVP Q4HR PRN PRN Reason: Moderate Pain Stop: 10/15/17 21:35 Last Admin: 08/21/17 03:48 Dose: 1 mg Ondansetron HCl (Zofran) 4 mg IV Q6H PRN PRN Reason: Nausea / Vomiting Stop: 10/15/17 21:34 Last Admin: 08/18/17 16:26 Dose: 4 mg Pantoprazole Sodium (Protonix) 40 mg IVP DAILY [facility] Stop: 10/19/17 08:59 Last Admin: 08/23/17 08:50 Dose: 40 mg Prednisone (Deltasone) 5 mg PO DAILY [facility] Stop: 10/16/17 08:59 Last Admin: 08/23/17 09:01 Dose: Not Given General: Mild distress (confused) Neck: Supple Cardiovascular: Regular rate Lungs: Clear to auscultation Abdomen: Bowel sounds, Soft, Tender (LLQ), Distended (MILD) Assessment/Plan - Assessment Assessment: abdominal pain gastroenteritis cad copd pud gerd dementia - Plan Plan: iv vanco as per id cbc/bmp in am continue the rest of the orders Nutritional Asmnt/Malnutr-PDOC - Dietary Evaluation Malnutrition Findings (Please click <Entered> for more info): Nutritional Asmnt/Malnutrition Start: 08/17/17 14: 47 Text: Status: Complete Freq: Protocol: Document 08/17/17 14:47 LCDAMONG (Rec: 08/17/17 15:32 [email or web address]) Nutritional Asmnt/Malnutrition Patient General Information Nutritional Screening High Risk Diagnosis elevated troponin, hypoxia, possible PNA Pertinent Medical Hx/Surgical Hx HTN, CAD, asthma/COPD, PUD/ GERD, ESRD, dementia Subjective Information Pt seen on mask at time of visit. Pt was NPO for CT scheduled today, no PO intake information available. Current Diet Order/ Nutrition Support NPO Pertinent Medications vit C, colace, levaquin, synthorid, zofran, nacl 0.9%, piperacillin, protonix Pertinent Labs 08/16 Na 135, Glucose 190, A1c 5.1 Nutritional Hx/Data Height 1.63 m Height (Calculated Centimeters) 162.6 Current Weight (lbs) 73.936 kg Weight (Calculated Kilograms) 73.9 Weight (Calculated Grams) 31813.6 [place] Body Weight 120 Body Mass Index (BMI) 27.9 Weight Status Overweight GI Symptoms GI Symptoms None Last BM none Difficult in: None Skin Integrity/Comment: reddened to coccyx, buttocks Estimated Nutritional Goals BEE in Kcals: Using Current wt Calories/Kcals/Kg 23-27 Kcals Calculated 0113-8954 Protein g/k Protein Calculated 74 Fluid: ml 1702-1998ml (1ml/kcal) Nutritional Problem 1. Problem Problem altered nutrition related labs Etiology hyperglycemia Signs/Symptoms: glucose 190 at admission Malnutrition Alert Is there a minimum of two criteria No selected? Query Text:Check all the applicable criteria. A minimum of two criteria are recommended for diagnosis of either severe or non-severe malnutrition. Malnutrition Related to Morbid Obesity Malnutrition related to morbid obesity No Intervention/Recommendation Comments 1. Resume pureed GIOVANNI diet after CT exam. Assist pt with meals. If glucose continue high, will consider adding CCHO diet. 2. Monitor PO intake, wt, labs and skin integrity 3. F/U as high risk in 2-3 days, 08/19-08/20 Expected Outcomes/Goals Expected Outcomes/Goals 1. PO intake to meet at least 75% of nutritional needs. 2. Wt stability, skin to remain intact, labs to approach WNL.
--- NOTE | 2017-08-23 11:15 | Diagnostic Imaging Report ---
Nuclear medicine HIDA scan HISTORY: Gallstones, assess for possible cholecystitis COMPARISON: CT abdomen and pelvis on 08/17/2017 ultrasound abdomen on 09-06 Technique/procedure: 5.3 mCi of technetium labeled Choletec was administered intravenously and multiple scintigraphic images were obtained for up to 1 hour. FINDINGS: Prompt hepatic uptake is noted. There is small bowel uptake seen within the first hour. Gallbladder uptake is equivocal is delayed images were not obtained. IMPRESSION: Equivocal exam. There may be delayed gallbladder uptake. Clinical correlation and possible repeat exam may be obtained for further assessment if indicated. Final results were administered to the referring team on 08/23/2017 at 10:15 AM.
[2017-08-23] MEDS: TPN 8.5%-70% CUSTOM IV SCH (16:16)
--- NOTE | 2017-08-23 17:03 | Consultation ---
DATE OF CONSULTATION: 08/23/2017 VASCULAR CONSULTATION REFERRING PHYSICIAN: Dr. Cheek. REASON FOR CONSULTATION: Possible hemodialysis, placement of Jelani catheter. Thank you for referring this patient to me. HISTORY OF PRESENT ILLNESS: An 87-year-old female brought in because of nausea, vomiting and abdominal pain. PAST MEDICAL HISTORY: Includes coronary artery disease, COPD, GERD, dementia, asthma and hypotension. LABORATORY STUDIES: At this admission, the BUN and creatinine are elevated to 43 and 1.9 and blood sugar 128. Troponins elevated to 0.8. AST and ALT are also elevated. The patient has been seen in consultation by GI, ID consultants as well as Cardiology. The patient's family has decided against any kind of intervention and wants only comfort measures. She is in the process of being transferred to a long-term acute care facility. JOB# [id number]
[2017-08-24] MEDS: Levofloxacin 250mg/50mL 250 MG/50 ML BAG IV SCH (01:18)
[2017-08-24] MEDS: INSULIN ASPART SLIDING SCALE 100 UNITS/ML UNIT SUBQ SCH ×4 (01:20→17:33)
[2017-08-24] MEDS: Hydrocodone/APAP 5mg/325mg Tab PO SCH ×5 (01:23→21:56)
[2017-08-24] MEDS: Diltiazem 30 mg Tab PO SCH ×5 (01:25→17:28)
[2017-08-24] MEDS: HYDROmorphone 1 mg/mL 1mL Syr IVP PRN (03:50)
[2017-08-24 05:43] LABS: ALB/GLOB RATIO 0.8 (1.0-1.8); ALBUMIN 2.1 gm/dL (3.7-5.3); ALKALINE PHOSPHATASE 40 U/L (34-104); ANION GAP 12.9 (7.0-16.0); BILIRUBIN,TOTAL 0.7 mg/dL (0.3-1.0); BUN - UREA NITROGEN 55 mg/dL (7-25); CALCIUM SERUM 7.5 mg/dL (8.6-10.3); CARBON DIOXIDE 15.1 mEq/L (21.0-31.0); CHLORIDE 116 mEq/L (98-107); CREATININE - SERUM 2.2 mg/dL (0.6-1.2); GLUCOSE 137 mg/dL (70-105); MAGNESIUM 2.1 mg/dL (1.9-2.7); PHOSPHOROUS 3.4 mg/dL (2.5-5.0); SGOT 27 U/L (13-39); SGPT/ALT 173 U/L (7-52); SODIUM SERUM 140 mEq/L (136-145); TOTAL PROTEIN,SERUM 4.8 gm/dL (6.0-8.3)
[2017-08-24] MEDS: Levothyroxine 0.025 Mg Tab PO SCH (06:34)
[2017-08-24 06:52] LABS: % BASOPHILS 0.1 % (0.0-2.0); % EOSINOPHILS 0.8 % (0.0-5.0); % LYMPHOCYTES 15.4 % (20.0-50.0); % MONOCYTES 10.1 % (2.0-10.0); % NEUTROPHILS 73.6 % (40.0-80.0); EOSINOPHILE ABSOLUTE 0.1 Th/cmm (0.1-0.4); HEMATOCRIT 38.7 % (41.0-60); HEMOGLOBIN 12.8 gm/dL (12-16); LYMPHOCYTE ABSOLUTE 2.2 Th/cmm (1.5-3.0); MEAN CELL VOLUME 93.1 fl (81-100); MEAN CORPUSCULAR HEMOGLOBIN 30.7 pg (27.0-31.0); MONOCYTE ABSOLUTE 1.5 Th/cmm (0.3-1.0); NEUTROPHILE ABSOLUTE 10.8 Th/cmm (1.8-8.0); PLATELET COUNT 140 Th/cmm (150-400); RED BLOOD COUNT 4.16 Mil/cmm (3.80-5.20); RED CELL DISTRIBUTION WIDTH 16.2 % (11.5-20.0); WHITE BLOOD COUNT 14.6 Th/cmm (4.8-10.8)
--- NOTE | 2017-08-24 07:55 | GI Progress Note ---
Subjective - Review of Systems Subjective: NO EVENTS PER STAFF FAMILY WISHES COMFORT CARE Objective - Results Result Diagrams: 08/24/17 06:40 08/24/17 05:00 Recent Labs: Laboratory Last Values WBC 14.6 Th/cmm (4.8-10.8) H 08/24/17 06:40 RBC 4.16 Mil/cmm (3.80-5.20) 08/24/17 06:40 Hgb 12.8 gm/dL (12-16) 08/24/17 06:40 Hct 38.7 % (41.0-60) L 08/24/17 06:40 MCV 93.1 fl (81-100) 08/24/17 06:40 MCH 30.7 pg (27.0-31.0) 08/24/17 06:40 MCHC Differential 33.0 pg (28.0-36.0) 08/24/17 06:40 RDW 16.2 % (11.5-20.0) 08/24/17 06:40 Plt Count 140 Th/cmm (150-400) L 08/24/17 06:40 MPV 8.0 fl 08/24/17 06:40 Neutrophils % 73.6 % (40.0-80.0) 08/24/17 06:40 Lymphocytes % 15.4 % (20.0-50.0) L 08/24/17 06:40 Monocytes % 10.1 % (2.0-10.0) H 08/24/17 06:40 Eosinophils % 0.8 % (0.0-5.0) 08/24/17 06:40 Basophils % 0.1 % (0.0-2.0) 08/24/17 06:40 PT 15.5 SECONDS (9.5-11.5) H 08/19/17 11:49 INR 1.46 (0.5-1.4) H 08/19/17 11:49 PTT (Actin FS) 34.3 SECONDS (26.0-38.0) 08/19/17 11:49 Specimen Source arterial 08/16/17 18:58 Sample Site rr 08/16/17 18:58 pH 7.38 (7.35-7.45) 08/16/17 18:58 pCO2 41.0 mmHg (35.0-45.0) 08/16/17 18:58 pO2 44.0 mmHg (80.0-100.0) L* 08/16/17 18:58 HCO3 23.9 mEq/L (20.0-26.0) 08/16/17 18:58 Base Excess -0.8 mEq/L (-3.0-3.0) 08/16/17 18:58 O2 Saturation 79.0 % (92.0-100.0) L 08/16/17 18:58 Kael Test y 08/16/17 18:58 Vent Rate N/A 08/16/17 18:58 Inspired O2 36 08/16/17 18:58 Tidal Volume N/A 08/16/17 18:58 PEEP N/A 08/16/17 18:58 Pressure (ins/psv/peep) N/A 08/16/17 18:58 Critical Value MM/JY 08/16/17 18:58 Sodium 140 mEq/L (136-145) 08/24/17 05:00 Potassium 4.0 mEq/L (3.5-5.1) 08/24/17 05:00 Chloride 116 mEq/L (98-107) H 08/24/17 05:00 Carbon Dioxide 15.1 mEq/L (21.0-31.0) L 08/24/17 05:00 Anion Gap 12.9 (7.0-16.0) 08/24/17 05:00 BUN 55 mg/dL (7-25) H 08/24/17 05:00 Creatinine 2.2 mg/dL (0.6-1.2) H 08/24/17 05:00 Est GFR ( Amer) TNP 08/24/17 05:00 Est GFR (Non-Af Amer) TNP 08/24/17 05:00 BUN/Creatinine Ratio 25.0 08/24/17 05:00 Glucose 137 mg/dL (70-105) H 08/24/17 05:00 POC Glucose 135 MG/DL (70 - 105) H 08/24/17 00:16 Hemoglobin A1c % 5.1 % (4.0-6.0) 08/16/17 18:40 Calcium 7.5 mg/dL (8.6-10.3) L 08/24/17 05:00 Phosphorus 3.4 mg/dL (2.5-5.0) 08/24/17 05:00 Magnesium 2.1 mg/dL (1.9-2.7) 08/24/17 05:00 Total Bilirubin 0.7 mg/dL (0.3-1.0) 08/24/17 05:00 Direct Bilirubin 0.24 mg/dL (0.0-0.2) H 08/21/17 04:30 AST 27 U/L (13-39) 08/24/17 05:00 ALT 173 U/L (7-52) H 08/24/17 05:00 Alkaline Phosphatase 40 U/L (34-104) 08/24/17 05:00 Creatine Kinase 21 U/L (30-223) L 08/16/17 18:40 Troponin I 0.80 ng/mL (0.01-0.05) H* D 08/22/17 05:50 B-Natriuretic Peptide > 5000.0 pg/mL (5.0-100.0) H 08/23/17 05:10 Total Protein 4.8 gm/dL (6.0-8.3) L 08/24/17 05:00 Albumin 2.1 gm/dL (3.7-5.3) L 08/24/17 05:00 Globulin 2.7 gm/dL 08/24/17 05:00 Albumin/Globulin Ratio 0.8 (1.0-1.8) L 08/24/17 05:00 Triglycerides 149 mg/dL (<150) 08/19/17 12:37 Cholesterol 84 mg/dL (<200) 08/19/17 12:37 LDL Cholesterol Direct 47 mg/dL (75-193) L 08/19/17 12:37 HDL Cholesterol 18 mg/dL (23-92) L 08/19/17 12:37 Amylase 12 U/L (29-103) L 08/16/17 18:40 Lipase 6 U/L (11-82) L 08/16/17 18:40 TSH 1.72 uIU/ml (0.34-5.60) 08/19/17 09:59 Urine Source CATH 08/17/17 05:05 Urine Color YELLOW 08/17/17 05:05 Urine Clarity TURBID (CLEAR) H 08/17/17 05:05 Urine pH 5.5 (4.6 - 8.0) 08/17/17 05:05 Ur Specific [place] 1.020 (1.005-1.030) 08/17/17 05:05 Urine Protein TRACE mg/dL (NEGATIVE) 08/17/17 05:05 Urine Glucose (UA) NEGATIVE mg/dL (NEGATIVE) 08/17/17 05:05 Urine Ketones 15 mg/dL (NEGATIVE) H 08/17/17 05:05 Urine Blood NEGATIVE (NEGATIVE) 08/17/17 05:05 Urine Nitrate POSITIVE (NEGATIVE) H 08/17/17 05:05 Urine Bilirubin NEGATIVE (NEGATIVE) 08/17/17 05:05 Urine Urobilinogen 1.0 E.U./dL (0.2 - 1.0) 08/17/17 05:05 Ur Leukocyte Esterase MODERATE (NEGATIVE) H 08/17/17 05:05 Urine RBC 0-2 /hpf (0-5) 08/17/17 05:05 Urine WBC 50-100 /hpf (0-5) H 08/17/17 05:05 Ur Epithelial Cells MODERATE /lpf (FEW) 08/17/17 05:05 Urine Bacteria 4+ /hpf (NONE SEEN) H 08/17/17 05:05 Amikacin Peak 20.9 ug/mL (20.0-30.0) 08/22/17 12:21 Amikacin Trough 4.3 ug/mL (1.0-8.0) 08/22/17 05:50 Acetaminophen < 10.0 ug/mL (10.0-30.0) L 08/21/17 04:30 - Physical Exam Vitals and I&O: Vital Signs Temp 98.1 F 08/24/17 04:00 Pulse 85 08/24/17 07:00 Resp 29 08/24/17 07:00 BP 97/28 08/24/17 07:00 Pulse Ox 99 08/24/17 07:00 Intake & Output 08/23/17 08/24/17 08/24/17 18:59 06:59 18:59 Intake Total 1300 150 Balance 1300 150 Weight (lbs) 79.464 kg 79.379 kg Intake: Intake, IV Amount 1300 150 Levofloxacin 250mg/50mL 50 250 mg In 50 ml @ 50 mls/ hr IV Q24HR [facility] Rx#: [id number] Multivitamin Inj 10 ml In 1200 Dextrose 70% 690 ml In Amino Acids 8.5% 500 ml @ 50 mls/hr IV .Q24H [facility] Rx#:[id number] metroNIDAZOLE 500mg/NS 100 100 100mL 500 mg In 100 ml @ 100 mls/hr IV Q12HR [facility] Rx#:[id number] Other: # Voids 3 3 # Bowel Movements 1 Stool Characteristics Soft Liquid Formed Brown Brown Weight Source Bedscale Bedscale Active Medications: Current Medications Acetaminophen (Tylenol) 650 mg PO Q6H PRN PRN Reason: Pain (Mild) Stop: 10/16/17 02:01 Acetaminophen/Hydrocodone Bitart ([place] 5mg/325mg) 1 tab PO Q6H [facility] Stop: 10/15/17 21:29 Last Admin: 08/24/17 01:23 Dose: Not Given Albuterol Sulfate (Albuterol 2.5mg/3ml Neb Ud) 1.25 mg HHN Q2HRT PRN PRN Reason: Shortness of Breath Stop: 10/16/17 02:12 Last Admin: 08/22/17 07:39 Dose: 1.25 mg Ascorbic Acid (Vitamin C) 500 mg PO DAILY [facility] Stop: 10/16/17 08:59 Last Admin: 08/23/17 08:59 Dose: Not Given Atorvastatin Calcium (Lipitor) 10 mg PO DAILY [facility]; Protocol Stop: 10/19/17 08:59 Last Admin: 08/23/17 08:59 Dose: Not Given Carvedilol (Coreg) 6.25 mg PO BID [facility] Stop: 10/17/17 16:59 Last Admin: 08/23/17 16:20 Dose: Not Given Clopidogrel Bisulfate (Plavix) 75 mg PO DAILY [facility] Stop: 10/16/17 08:59 Last Admin: 08/23/17 09:00 Dose: Not Given Diltiazem HCl (Cardizem) 60 mg PO Q6HR [facility] Stop: 10/17/17 17:59 Last Admin: 08/24/17 06:36 Dose: Not Given Diltiazem HCl (Cardizem) 5 mg IVP Q6H PRN PRN Reason: HR more than 125bpm Stop: 10/19/17 03:29 Docusate Sodium (Colace) 100 mg PO BID [facility] Stop: 10/16/17 08:59 Last Admin: 08/23/17 16:21 Dose: Not Given Donepezil HCl (Aricept) 10 mg PO HS [facility] Stop: 10/15/17 21:59 Last Admin: 08/24/17 01:23 Dose: 10 mg Enoxaparin Sodium 80 mg/ (Enoxaparin Sodium 40 mg) 120 mg SUBQ Q24H [facility] Stop: 10/21/17 15:59 Last Admin: 08/23/17 16:40 Dose: 120 mg Furosemide (Lasix) 40 mg IVP BID [facility] Stop: 10/21/17 16:59 Last Admin: 08/23/17 16:15 Dose: 40 mg Gabapentin (Neurontin) 600 mg PO Q6HR [facility] Stop: 10/16/17 05:59 Last Admin: 08/24/17 06:32 Dose: Not Given Hydromorphone HCl (Dilaudid) 1 mg IVP Q6H PRN PRN Reason: Pain (Moderate) Stop: 10/17/17 16:38 Last Admin: 08/24/17 03:50 Dose: 1 mg Hydromorphone HCl (Dilaudid) 2 mg IVP Q6H PRN PRN Reason: SEVERE PAIN Stop: 10/17/17 21:10 Last Admin: 08/23/17 16:15 Dose: 2 mg Levofloxacin (Levaquin Pb) 250 mg in 50 mls @ 50 mls/hr IV Q24HR [facility] Stop: 10/16/17 00:59 Last Infusion: 08/24/17 02:20 Dose: Infused Metronidazole (Flagyl) 500 mg in 100 mls @ 100 mls/hr IV Q12HR [facility] Stop: 10/18/17 20:59 Last Infusion: 08/23/17 22:15 Dose: Infused Amikacin Sulfate 375 mg/ (Dextrose) 101.5 mls @ 100 mls/hr IV Q48HR [facility] Stop: 10/19/17 08:59 Last Infusion: 08/22/17 11:05 Dose: Infused Multivitamins/Minerals 10 ml/Dextrose/ Amino Acids/Electrolytes 1,200 mls @ 50 mls/hr IV .Q24H [facility] Stop: 09/20/17 16:59 Last Admin: 08/23/17 16:16 Dose: 50 mls/hr Insulin Aspart (Novolog Insulin Sliding Scale) 0 units SUBQ Q6HR [facility]; Protocol Stop: 10/19/17 17:59 Last Admin: 08/24/17 06:40 Dose: Not Given Levothyroxine Sodium (Synthroid) 0.025 mg PO DAILY@0730 [facility] Stop: 10/16/17 07:29 Last Admin: 08/24/17 06:34 Dose: Not Given Lorazepam (Ativan) 0.5 mg IVP Q6HR PRN; Protocol PRN Reason: Agitation Stop: 10/18/17 11:03 Last Admin: 08/24/17 01:44 Dose: 0.5 mg Miscellaneous (Amikacin Iv Per Pharmacy) [facility] PRN PRN PRN Reason: Protocol Stop: 10/18/17 15:52 Miscellaneous (Lovenox Subq Per Pharmacy) [facility] PRN PRN PRN Reason: PROTOCOL Stop: 10/18/17 11:40 Miscellaneous (Ppn Per Pharmacy) 1 [facility] system PRN PRN PRN Reason: PROTOCOL Stop: 10/19/17 10:04 Montelukast Sodium (Singulair) 10 mg PO DAILY [facility] Stop: 10/16/17 08:59 Last Admin: 08/23/17 09:00 Dose: Not Given Morphine Sulfate (Morphine) 1 mg IVP Q4HR PRN PRN Reason: Moderate Pain Stop: 10/15/17 21:35 Last Admin: 08/21/17 03:48 Dose: 1 mg Ondansetron HCl (Zofran) 4 mg IV Q6H PRN PRN Reason: Nausea / Vomiting Stop: 10/15/17 21:34 Last Admin: 08/18/17 16:26 Dose: 4 mg Pantoprazole Sodium (Protonix) 40 mg IVP DAILY [facility] Stop: 10/19/17 08:59 Last Admin: 08/23/17 08:50 Dose: 40 mg Prednisone (Deltasone) 5 mg PO DAILY [facility] Stop: 10/16/17 08:59 Last Admin: 08/23/17 09:01 Dose: Not Given General: Mild distress (confused) Neck: Supple Cardiovascular: Regular rate Lungs: Clear to auscultation Abdomen: Bowel sounds, Soft, Tender (LLQ), Distended (MILD) Assessment/Plan - Assessment Assessment: 87 YO FEMALE WITH SIGMOID DIVERTICULITIS. MAY ALSO HAVE ISCHEMIC COLITIS ALSO WITH CHOLELITHIASIS AND HIDA SUGGEST CHOLECYSTITIS - LFTS IMPROVING 1. CONT ABX. 2. NPO AND TPN. 3. PER CARDS TO OPTIMIZE CARDIAC FUNCTION. 4. FAILED SWALLOW EVAL. POLST OUTLINED WISH FOR DNR AND NO ARTIFICIAL FEEDING. 5. SURGERY EVAL PER HOSPITALIST FOR CHOLECYSTITIS 6. WILL SEE NEEDED; CALL IF QUESTIONS
[2017-08-24] MEDS: metroNIDAZOLE 500mg/NS 100mL 500 MG/100 ML BAG IV SCH ×2 (08:05→21:56)
[2017-08-24] MEDS: Atorvastatin Calcium 10 MG TAB PO SCH (08:34)
[2017-08-24] MEDS: HYDROmorphone 2 mg/mL 1mL Vial IVP PRN (11:16)
--- NOTE | 2017-08-24 13:25 | General Progress Note ---
Subjective - Review of Systems Service Date: 08/24/17 Events since last encounter: discussed with son who does not want anything done Objective - Results Result Diagrams: 08/24/17 06:40 08/24/17 05:00 Recent Labs: Laboratory Last Values WBC 14.6 Th/cmm (4.8-10.8) H 08/24/17 06:40 RBC 4.16 Mil/cmm (3.80-5.20) 08/24/17 06:40 Hgb 12.8 gm/dL (12-16) 08/24/17 06:40 Hct 38.7 % (41.0-60) L 08/24/17 06:40 MCV 93.1 fl (81-100) 08/24/17 06:40 MCH 30.7 pg (27.0-31.0) 08/24/17 06:40 MCHC Differential 33.0 pg (28.0-36.0) 08/24/17 06:40 RDW 16.2 % (11.5-20.0) 08/24/17 06:40 Plt Count 140 Th/cmm (150-400) L 08/24/17 06:40 MPV 8.0 fl 08/24/17 06:40 Neutrophils % 73.6 % (40.0-80.0) 08/24/17 06:40 Lymphocytes % 15.4 % (20.0-50.0) L 08/24/17 06:40 Monocytes % 10.1 % (2.0-10.0) H 08/24/17 06:40 Eosinophils % 0.8 % (0.0-5.0) 08/24/17 06:40 Basophils % 0.1 % (0.0-2.0) 08/24/17 06:40 PT 15.5 SECONDS (9.5-11.5) H 08/19/17 11:49 INR 1.46 (0.5-1.4) H 08/19/17 11:49 PTT (Actin FS) 34.3 SECONDS (26.0-38.0) 08/19/17 11:49 Specimen Source arterial 08/16/17 18:58 Sample Site rr 08/16/17 18:58 pH 7.38 (7.35-7.45) 08/16/17 18:58 pCO2 41.0 mmHg (35.0-45.0) 08/16/17 18:58 pO2 44.0 mmHg (80.0-100.0) L* 08/16/17 18:58 HCO3 23.9 mEq/L (20.0-26.0) 08/16/17 18:58 Base Excess -0.8 mEq/L (-3.0-3.0) 08/16/17 18:58 O2 Saturation 79.0 % (92.0-100.0) L 08/16/17 18:58 Kael Test y 08/16/17 18:58 Vent Rate N/A 08/16/17 18:58 Inspired O2 36 08/16/17 18:58 Tidal Volume N/A 08/16/17 18:58 PEEP N/A 08/16/17 18:58 Pressure (ins/psv/peep) N/A 08/16/17 18:58 Critical Value MM/JY 08/16/17 18:58 Sodium 140 mEq/L (136-145) 08/24/17 05:00 Potassium 4.0 mEq/L (3.5-5.1) 08/24/17 05:00 Chloride 116 mEq/L (98-107) H 08/24/17 05:00 Carbon Dioxide 15.1 mEq/L (21.0-31.0) L 08/24/17 05:00 Anion Gap 12.9 (7.0-16.0) 08/24/17 05:00 BUN 55 mg/dL (7-25) H 08/24/17 05:00 Creatinine 2.2 mg/dL (0.6-1.2) H 08/24/17 05:00 Est GFR ( Amer) TNP 08/24/17 05:00 Est GFR (Non-Af Amer) TNP 08/24/17 05:00 BUN/Creatinine Ratio 25.0 08/24/17 05:00 Glucose 137 mg/dL (70-105) H 08/24/17 05:00 POC Glucose 130 MG/DL (70 - 105) H 08/24/17 11:18 Hemoglobin A1c % 5.1 % (4.0-6.0) 08/16/17 18:40 Calcium 7.5 mg/dL (8.6-10.3) L 08/24/17 05:00 Phosphorus 3.4 mg/dL (2.5-5.0) 08/24/17 05:00 Magnesium 2.1 mg/dL (1.9-2.7) 08/24/17 05:00 Total Bilirubin 0.7 mg/dL (0.3-1.0) 08/24/17 05:00 Direct Bilirubin 0.24 mg/dL (0.0-0.2) H 08/21/17 04:30 AST 27 U/L (13-39) 08/24/17 05:00 ALT 173 U/L (7-52) H 08/24/17 05:00 Alkaline Phosphatase 40 U/L (34-104) 08/24/17 05:00 Creatine Kinase 21 U/L (30-223) L 08/16/17 18:40 Troponin I 0.80 ng/mL (0.01-0.05) H* D 08/22/17 05:50 B-Natriuretic Peptide > 5000.0 pg/mL (5.0-100.0) H 08/23/17 05:10 Total Protein 4.8 gm/dL (6.0-8.3) L 08/24/17 05:00 Albumin 2.1 gm/dL (3.7-5.3) L 08/24/17 05:00 Globulin 2.7 gm/dL 08/24/17 05:00 Albumin/Globulin Ratio 0.8 (1.0-1.8) L 08/24/17 05:00 Triglycerides 149 mg/dL (<150) 08/19/17 12:37 Cholesterol 84 mg/dL (<200) 08/19/17 12:37 LDL Cholesterol Direct 47 mg/dL (75-193) L 08/19/17 12:37 HDL Cholesterol 18 mg/dL (23-92) L 08/19/17 12:37 Amylase 12 U/L (29-103) L 08/16/17 18:40 Lipase 6 U/L (11-82) L 08/16/17 18:40 TSH 1.72 uIU/ml (0.34-5.60) 08/19/17 09:59 Urine Source CATH 08/17/17 05:05 Urine Color YELLOW 08/17/17 05:05 Urine Clarity TURBID (CLEAR) H 08/17/17 05:05 Urine pH 5.5 (4.6 - 8.0) 08/17/17 05:05 Ur Specific [place] 1.020 (1.005-1.030) 08/17/17 05:05 Urine Protein TRACE mg/dL (NEGATIVE) 08/17/17 05:05 Urine Glucose (UA) NEGATIVE mg/dL (NEGATIVE) 08/17/17 05:05 Urine Ketones 15 mg/dL (NEGATIVE) H 08/17/17 05:05 Urine Blood NEGATIVE (NEGATIVE) 08/17/17 05:05 Urine Nitrate POSITIVE (NEGATIVE) H 08/17/17 05:05 Urine Bilirubin NEGATIVE (NEGATIVE) 08/17/17 05:05 Urine Urobilinogen 1.0 E.U./dL (0.2 - 1.0) 08/17/17 05:05 Ur Leukocyte Esterase MODERATE (NEGATIVE) H 08/17/17 05:05 Urine RBC 0-2 /hpf (0-5) 08/17/17 05:05 Urine WBC 50-100 /hpf (0-5) H 08/17/17 05:05 Ur Epithelial Cells MODERATE /lpf (FEW) 08/17/17 05:05 Urine Bacteria 4+ /hpf (NONE SEEN) H 08/17/17 05:05 Amikacin Peak 20.9 ug/mL (20.0-30.0) 08/22/17 12:21 Amikacin Trough 4.3 ug/mL (1.0-8.0) 08/22/17 05:50 Acetaminophen < 10.0 ug/mL (10.0-30.0) L 08/21/17 04:30 - Physical Exam Vitals and I&O: Vital Signs Temp 97.2 F 08/24/17 12:00 Pulse 110 08/24/17 12:00 Resp 28 08/24/17 12:00 BP 112/26 08/24/17 12:00 Pulse Ox 93 08/24/17 12:00 Intake & Output 08/23/17 08/24/17 08/24/17 18:59 06:59 18:59 Intake Total 1300 150 201.5 Balance 1300 150 201.5 Weight (lbs) 79.464 kg 79.379 kg Intake: Intake, IV Amount 1300 150 201.5 Amikacin 375 mg In 101.5 Dextrose 5% 100 ml @ 100 mls/hr IV Q48HR ON LICENSE OF [facility] Rx#: [id number] Levofloxacin 250mg/50mL 50 250 mg In 50 ml @ 50 mls/ hr IV Q24HR ON LICENSE OF [facility] Rx#: [id number] Multivitamin Inj 10 ml In 1200 Dextrose 70% 690 ml In Amino Acids 8.5% 500 ml @ 50 mls/hr IV .Q24H ON LICENSE OF [facility] Rx#:[id number] metroNIDAZOLE 500mg/NS 100 100 100 100mL 500 mg In 100 ml @ 100 mls/hr IV Q12HR ON LICENSE OF [facility] Rx#:[id number] Other: # Voids 3 3 # Bowel Movements 1 Stool Characteristics Soft Liquid Formed Brown Brown Weight Source Bedscale Bedscale Active Medications: Current Medications Acetaminophen (Tylenol) 650 mg PO Q6H PRN PRN Reason: Pain (Mild) Stop: 10/16/17 02:01 Acetaminophen/Hydrocodone Bitart ([place] 5mg/325mg) 1 tab PO Q6H ON LICENSE OF [facility] Stop: 10/15/17 21:29 Last Admin: 08/24/17 08:36 Dose: Not Given Albuterol Sulfate (Albuterol 2.5mg/3ml Neb Ud) 1.25 mg HHN Q2HRT PRN PRN Reason: Shortness of Breath Stop: 10/16/17 02:12 Last Admin: 08/22/17 07:39 Dose: 1.25 mg Ascorbic Acid (Vitamin C) 500 mg PO DAILY ON LICENSE OF [facility] Stop: 10/16/17 08:59 Last Admin: 08/24/17 08:34 Dose: Not Given Atorvastatin Calcium (Lipitor) 10 mg PO DAILY ON LICENSE OF [facility]; Protocol Stop: 10/19/17 08:59 Last Admin: 08/24/17 08:34 Dose: Not Given Carvedilol (Coreg) 6.25 mg PO BID ON LICENSE OF [facility] Stop: 10/17/17 16:59 Last Admin: 08/24/17 08:35 Dose: Not Given Clopidogrel Bisulfate (Plavix) 75 mg PO DAILY ON LICENSE OF [facility] Stop: 10/16/17 08:59 Last Admin: 08/24/17 08:35 Dose: Not Given Diltiazem HCl (Cardizem) 60 mg PO Q6HR ON LICENSE OF [facility] Stop: 10/17/17 17:59 Last Admin: 08/24/17 11:19 Dose: Not Given Diltiazem HCl (Cardizem) 5 mg IVP Q6H PRN PRN Reason: HR more than 125bpm Stop: 10/19/17 03:29 Docusate Sodium (Colace) 100 mg PO BID ON LICENSE OF [facility] Stop: 10/16/17 08:59 Last Admin: 08/24/17 08:35 Dose: Not Given Donepezil HCl (Aricept) 10 mg PO HS ON LICENSE OF [facility] Stop: 10/15/17 21:59 Last Admin: 08/24/17 01:23 Dose: 10 mg Enoxaparin Sodium 80 mg/ (Enoxaparin Sodium 40 mg) 120 mg SUBQ Q24H ON LICENSE OF [facility] Stop: 10/21/17 15:59 Last Admin: 08/23/17 16:40 Dose: 120 mg Furosemide (Lasix) 40 mg IVP BID ON LICENSE OF [facility] Stop: 10/21/17 16:59 Last Admin: 08/24/17 08:35 Dose: Not Given Gabapentin (Neurontin) 600 mg PO Q6HR ON LICENSE OF [facility] Stop: 10/16/17 05:59 Last Admin: 08/24/17 11:20 Dose: Not Given Hydromorphone HCl (Dilaudid) 1 mg IVP Q6H PRN PRN Reason: Pain (Moderate) Stop: 10/17/17 16:38 Last Admin: 08/24/17 03:50 Dose: 1 mg Hydromorphone HCl (Dilaudid) 2 mg IVP Q6H PRN PRN Reason: SEVERE PAIN Stop: 10/17/17 21:10 Last Admin: 08/24/17 11:16 Dose: 2 mg Levofloxacin (Levaquin Pb) 250 mg in 50 mls @ 50 mls/hr IV Q24HR ON LICENSE OF [facility] Stop: 10/16/17 00:59 Last Infusion: 08/24/17 02:20 Dose: Infused Metronidazole (Flagyl) 500 mg in 100 mls @ 100 mls/hr IV Q12HR ON LICENSE OF [facility] Stop: 10/18/17 20:59 Last Infusion: 08/24/17 09:05 Dose: Infused Amikacin Sulfate 375 mg/ (Dextrose) 101.5 mls @ 100 mls/hr IV Q48HR ON LICENSE OF [facility] Stop: 10/19/17 08:59 Last Infusion: 08/24/17 09:30 Dose: Infused Multivitamins/Minerals 10 ml/Dextrose/ Amino Acids/Electrolytes 1,200 mls @ 50 mls/hr IV .Q24H ON LICENSE OF [facility] Stop: 09/20/17 16:59 Last Admin: 08/23/17 16:16 Dose: 50 mls/hr Insulin Aspart (Novolog Insulin Sliding Scale) 0 units SUBQ Q6HR REGLA; Protocol Stop: 10/19/17 17:59 Last Admin: 08/24/17 11:18 Dose: Not Given Levothyroxine Sodium (Synthroid) 0.025 mg PO DAILY@0730 ON LICENSE OF [facility] Stop: 10/16/17 07:29 Last Admin: 08/24/17 06:34 Dose: Not Given Lorazepam (Ativan) 0.5 mg IVP Q6HR PRN; Protocol PRN Reason: Agitation Stop: 10/18/17 11:03 Last Admin: 08/24/17 08:20 Dose: 0.5 mg Miscellaneous (Amikacin Iv Per Pharmacy) 1 [facility] PRN PRN PRN Reason: Protocol Stop: 10/18/17 15:52 Miscellaneous (Lovenox Subq Per Pharmacy) 1 [facility] PRN PRN PRN Reason: PROTOCOL Stop: 10/18/17 11:40 Miscellaneous (Ppn Per Pharmacy) 1 [facility] PRN PRN PRN Reason: PROTOCOL Stop: 10/19/17 10:04 Montelukast Sodium (Singulair) 10 mg PO DAILY ON LICENSE OF [facility] Stop: 10/16/17 08:59 Last Admin: 08/24/17 08:36 Dose: Not Given Morphine Sulfate (Morphine) 1 mg IVP Q4HR PRN PRN Reason: Moderate Pain Stop: 10/15/17 21:35 Last Admin: 08/21/17 03:48 Dose: 1 mg Ondansetron HCl (Zofran) 4 mg IV Q6H PRN PRN Reason: Nausea / Vomiting Stop: 10/15/17 21:34 Last Admin: 08/18/17 16:26 Dose: 4 mg Pantoprazole Sodium (Protonix) 40 mg IVP DAILY ON LICENSE OF [facility] Stop: 10/19/17 08:59 Last Admin: 08/24/17 08:28 Dose: 40 mg Prednisone (Deltasone) 5 mg PO DAILY ON LICENSE OF [facility] Stop: 10/16/17 08:59 Last Admin: 08/24/17 08:36 Dose: Not Given General: Mild distress (confused) Neck: Supple Cardiovascular: Regular rate Lungs: Clear to auscultation Abdomen: Bowel sounds, Soft, Tender (LLQ), Distended (MILD) Nutritional Asmnt/Malnutr-PDOC - Dietary Evaluation Malnutrition Findings (Please click <Entered> for more info): Nutritional Asmnt/Malnutrition Start: 08/17/17 14: 47 Text: Status: Complete Freq: Protocol: Document 08/17/17 14:47 [email or web address] (Rec: 08/17/17 15:32 [email or web address] [email or web address]) Nutritional Asmnt/Malnutrition Patient General Information Nutritional Screening High Risk Diagnosis elevated troponin, hypoxia, possible PNA Pertinent Medical Hx/Surgical Hx HTN, CAD, asthma/COPD, PUD/ GERD, ESRD, dementia Subjective Information Pt seen on mask at time of visit. Pt was NPO for CT scheduled today, no PO intake information available. Current Diet Order/ Nutrition Support NPO Pertinent Medications vit C, colace, levaquin, synthorid, zofran, nacl 0.9%, piperacillin, protonix Pertinent Labs 08/16 Na 135, Glucose 190, A1c 5.1 Nutritional Hx/Data Height 1.63 m Height (Calculated Centimeters) 162.6 Current Weight (lbs) 73.936 kg Weight (Calculated Kilograms) 73.9 Weight (Calculated Grams) 52241.6 [place] Body Weight 120 Body Mass Index (BMI) 27.9 Weight Status Overweight GI Symptoms GI Symptoms None Last BM none Difficult in: None Skin Integrity/Comment: reddened to coccyx, buttocks Estimated Nutritional Goals BEE in Kcals: Using Current wt Calories/Kcals/Kg 23-27 Kcals Calculated 6021-4277 Protein g/k Protein Calculated 74 Fluid: ml 1702-1998ml (1ml/kcal) Nutritional Problem 1. Problem Problem altered nutrition related labs Etiology hyperglycemia Signs/Symptoms: glucose 190 at admission Malnutrition Alert Is there a minimum of two criteria No selected? Query Text:Check all the applicable criteria. A minimum of two criteria are recommended for diagnosis of either severe or non-severe malnutrition. Malnutrition Related to Morbid Obesity Malnutrition related to morbid obesity No Intervention/Recommendation Comments 1. Resume pureed GIOVANNI diet after CT exam. Assist pt with meals. If glucose continue high, will consider adding CCHO diet. 2. Monitor PO intake, wt, labs and skin integrity 3. F/U as high risk in 2-3 days, 08/19-08/20 Expected Outcomes/Goals Expected Outcomes/Goals 1. PO intake to meet at least 75% of nutritional needs. 2. Wt stability, skin to remain intact, labs to approach WNL.
[2017-08-24 15:12] LABS: F1 ACTIN-SMOOTH MUSC IGG 17 Units (0-19); FERRITIN 1079 ng/mL (15-150); HEP A AB IGM Negative (Negative); HEP B CORE IGM Negative (Negative); HEP B SURFACE AG QL Negative (Negative); HEP C ANTIBODY <0.1 s/co ratio (0.0-0.9); IRON LC 49 ug/dL (27-139); TIBC (LC) 151 ug/dL (250-450); UIBC 102 ug/dL (118-369)
[2017-08-24] MEDS: TPN 8.5%-70% CUSTOM IV SCH (16:03)
--- NOTE | 2017-08-24 16:28 | General Progress Note ---
Subjective - Review of Systems Subjective: awake, confused hidaz positive Objective - Results Result Diagrams: 08/24/17 06:40 08/24/17 05:00 Recent Labs: Laboratory Last Values WBC 14.6 Th/cmm (4.8-10.8) H 08/24/17 06:40 RBC 4.16 Mil/cmm (3.80-5.20) 08/24/17 06:40 Hgb 12.8 gm/dL (12-16) 08/24/17 06:40 Hct 38.7 % (41.0-60) L 08/24/17 06:40 MCV 93.1 fl (81-100) 08/24/17 06:40 MCH 30.7 pg (27.0-31.0) 08/24/17 06:40 MCHC Differential 33.0 pg (28.0-36.0) 08/24/17 06:40 RDW 16.2 % (11.5-20.0) 08/24/17 06:40 Plt Count 140 Th/cmm (150-400) L 08/24/17 06:40 MPV 8.0 fl 08/24/17 06:40 Neutrophils % 73.6 % (40.0-80.0) 08/24/17 06:40 Lymphocytes % 15.4 % (20.0-50.0) L 08/24/17 06:40 Monocytes % 10.1 % (2.0-10.0) H 08/24/17 06:40 Eosinophils % 0.8 % (0.0-5.0) 08/24/17 06:40 Basophils % 0.1 % (0.0-2.0) 08/24/17 06:40 PT 15.5 SECONDS (9.5-11.5) H 08/19/17 11:49 INR 1.46 (0.5-1.4) H 08/19/17 11:49 PTT (Actin FS) 34.3 SECONDS (26.0-38.0) 08/19/17 11:49 Specimen Source arterial 08/16/17 18:58 Sample Site rr 08/16/17 18:58 pH 7.38 (7.35-7.45) 08/16/17 18:58 pCO2 41.0 mmHg (35.0-45.0) 08/16/17 18:58 pO2 44.0 mmHg (80.0-100.0) L* 08/16/17 18:58 HCO3 23.9 mEq/L (20.0-26.0) 08/16/17 18:58 Base Excess -0.8 mEq/L (-3.0-3.0) 08/16/17 18:58 O2 Saturation 79.0 % (92.0-100.0) L 08/16/17 18:58 Kael Test y 08/16/17 18:58 Vent Rate N/A 08/16/17 18:58 Inspired O2 36 08/16/17 18:58 Tidal Volume N/A 08/16/17 18:58 PEEP N/A 08/16/17 18:58 Pressure (ins/psv/peep) N/A 08/16/17 18:58 Critical Value MM/JY 08/16/17 18:58 Sodium 140 mEq/L (136-145) 08/24/17 05:00 Potassium 4.0 mEq/L (3.5-5.1) 08/24/17 05:00 Chloride 116 mEq/L (98-107) H 08/24/17 05:00 Carbon Dioxide 15.1 mEq/L (21.0-31.0) L 08/24/17 05:00 Anion Gap 12.9 (7.0-16.0) 08/24/17 05:00 BUN 55 mg/dL (7-25) H 08/24/17 05:00 Creatinine 2.2 mg/dL (0.6-1.2) H 08/24/17 05:00 Est GFR ( Amer) TNP 08/24/17 05:00 Est GFR (Non-Af Amer) [facility] 08/24/17 05:00 BUN/Creatinine Ratio 25.0 08/24/17 05:00 Glucose 137 mg/dL (70-105) H 08/24/17 05:00 POC Glucose 130 MG/DL (70 - 105) H 08/24/17 11:18 Hemoglobin A1c % 5.1 % (4.0-6.0) 08/16/17 18:40 Calcium 7.5 mg/dL (8.6-10.3) L 08/24/17 05:00 Phosphorus 3.4 mg/dL (2.5-5.0) 08/24/17 05:00 Magnesium 2.1 mg/dL (1.9-2.7) 08/24/17 05:00 Iron 49 ug/dL (27-139) 08/21/17 04:30 TIBC 151 ug/dL (250-450) L 08/21/17 04:30 Iron Saturation 32 % (15-55) 08/21/17 04:30 Unsaturated IBC 102 ug/dL (118-369) L 08/21/17 04:30 Ferritin 1079 ng/mL (15-150) H 08/21/17 04:30 Total Bilirubin 0.7 mg/dL (0.3-1.0) 08/24/17 05:00 Direct Bilirubin 0.24 mg/dL (0.0-0.2) H 08/21/17 04:30 AST 27 U/L (13-39) 08/24/17 05:00 ALT 173 U/L (7-52) H 08/24/17 05:00 Alkaline Phosphatase 40 U/L (34-104) 08/24/17 05:00 Creatine Kinase 21 U/L (30-223) L 08/16/17 18:40 Troponin I 0.80 ng/mL (0.01-0.05) H* D 08/22/17 05:50 B-Natriuretic Peptide > 5000.0 pg/mL (5.0-100.0) H 08/23/17 05:10 Total Protein 4.8 gm/dL (6.0-8.3) L 08/24/17 05:00 Albumin 2.1 gm/dL (3.7-5.3) L 08/24/17 05:00 Globulin 2.7 gm/dL 08/24/17 05:00 Albumin/Globulin Ratio 0.8 (1.0-1.8) L 08/24/17 05:00 Triglycerides 149 mg/dL (<150) 08/19/17 12:37 Cholesterol 84 mg/dL (<200) 08/19/17 12:37 LDL Cholesterol Direct 47 mg/dL (75-193) L 08/19/17 12:37 HDL Cholesterol 18 mg/dL (23-92) L 08/19/17 12:37 Amylase 12 U/L (29-103) L 08/16/17 18:40 Lipase 6 U/L (11-82) L 08/16/17 18:40 TSH 1.72 uIU/ml (0.34-5.60) 08/19/17 09:59 Urine Source CATH 08/17/17 05:05 Urine Color YELLOW 08/17/17 05:05 Urine Clarity TURBID (CLEAR) H 08/17/17 05:05 Urine pH 5.5 (4.6 - 8.0) 08/17/17 05:05 Ur Specific [place] 1.020 (1.005-1.030) 08/17/17 05:05 Urine Protein TRACE mg/dL (NEGATIVE) 08/17/17 05:05 Urine Glucose (UA) NEGATIVE mg/dL (NEGATIVE) 08/17/17 05:05 Urine Ketones 15 mg/dL (NEGATIVE) H 08/17/17 05:05 Urine Blood NEGATIVE (NEGATIVE) 08/17/17 05:05 Urine Nitrate POSITIVE (NEGATIVE) H 08/17/17 05:05 Urine Bilirubin NEGATIVE (NEGATIVE) 08/17/17 05:05 Urine Urobilinogen 1.0 E.U./dL (0.2 - 1.0) 08/17/17 05:05 Ur Leukocyte Esterase MODERATE (NEGATIVE) H 08/17/17 05:05 Urine RBC 0-2 /hpf (0-5) 08/17/17 05:05 Urine WBC 50-100 /hpf (0-5) H 08/17/17 05:05 Ur Epithelial Cells MODERATE /lpf (FEW) 08/17/17 05:05 Urine Bacteria 4+ /hpf (NONE SEEN) H 08/17/17 05:05 Amikacin Peak 20.9 ug/mL (20.0-30.0) 08/22/17 12:21 Amikacin Trough 4.3 ug/mL (1.0-8.0) 08/22/17 05:50 Acetaminophen < 10.0 ug/mL (10.0-30.0) L 08/21/17 04:30 Smooth Muscle IgG Ab 17 Units (0-19) 08/21/17 04:30 Hepatitis A IgM Ab Negative (Negative) 08/21/17 04:30 Hep Bs Antigen Negative (Negative) 08/21/17 04:30 Hep B Core IgM Ab Negative (Negative) 08/21/17 04:30 Hepatitis C Antibody <0.1 s/co ratio (0.0-0.9) 08/21/17 04:30 - Physical Exam Vitals and I&O: Vital Signs Temp 99.8 F 08/24/17 15:00 Pulse 107 08/24/17 15:00 Resp 24 08/24/17 15:00 BP 112/22 08/24/17 15:00 Pulse Ox 93 08/24/17 15:00 Intake & Output 08/23/17 08/24/17 08/24/17 18:59 06:59 18:59 Intake Total 7407 496 6638.667 Balance 9467 167 3037.667 Weight (lbs) 79.464 kg 79.379 kg Intake: Intake, IV Amount 4328 738 3707.667 Amikacin 375 mg In 101.5 Dextrose 5% 100 ml @ 100 mls/hr IV Q48HR [facility] Rx#: [id number] Levofloxacin 250mg/50mL 50 250 mg In 50 ml @ 50 mls/ hr IV Q24HR [facility] Rx#: [id number] Multivitamin Inj 10 ml In 1200 1189.167 Dextrose 70% 690 ml In Amino Acids 8.5% 500 ml @ 50 mls/hr IV .Q24H [facility] Rx#:[id number] metroNIDAZOLE 500mg/NS 100 100 100 100mL 500 mg In 100 ml @ 100 mls/hr IV Q12HR [facility] Rx#:[id number] Other: # Voids 3 3 # Bowel Movements 1 Stool Characteristics Soft Liquid Formed Brown Brown Weight Source Bedscale Bedscale Active Medications: Current Medications Acetaminophen (Tylenol) 650 mg PO Q6H PRN PRN Reason: Pain (Mild) Stop: 10/16/17 02:01 Acetaminophen/Hydrocodone Bitart ([place] 5mg/325mg) 1 tab PO Q6H [facility] Stop: 10/15/17 21:29 Last Admin: 08/24/17 15:38 Dose: Not Given Albuterol Sulfate (Albuterol 2.5mg/3ml Neb Ud) 1.25 mg HHN Q2HRT PRN PRN Reason: Shortness of Breath Stop: 10/16/17 02:12 Last Admin: 08/22/17 07:39 Dose: 1.25 mg Ascorbic Acid (Vitamin C) 500 mg PO DAILY [facility] Stop: 10/16/17 08:59 Last Admin: 08/24/17 08:34 Dose: Not Given Atorvastatin Calcium (Lipitor) 10 mg PO DAILY [facility]; Protocol Stop: 10/19/17 08:59 Last Admin: 08/24/17 08:34 Dose: Not Given Carvedilol (Coreg) 6.25 mg PO BID [facility] Stop: 10/17/17 16:59 Last Admin: 08/24/17 08:35 Dose: Not Given Clopidogrel Bisulfate (Plavix) 75 mg PO DAILY [facility] Stop: 10/16/17 08:59 Last Admin: 08/24/17 08:35 Dose: Not Given Diltiazem HCl (Cardizem) 60 mg PO Q6HR [facility] Stop: 10/17/17 17:59 Last Admin: 08/24/17 11:19 Dose: Not Given Diltiazem HCl (Cardizem) 5 mg IVP Q6H PRN PRN Reason: HR more than 125bpm Stop: 10/19/17 03:29 Docusate Sodium (Colace) 100 mg PO BID [facility] Stop: 10/16/17 08:59 Last Admin: 08/24/17 08:35 Dose: Not Given Donepezil HCl (Aricept) 10 mg PO HS [facility] Stop: 10/15/17 21:59 Last Admin: 08/24/17 01:23 Dose: 10 mg Enoxaparin Sodium 80 mg/ (Enoxaparin Sodium 40 mg) 120 mg SUBQ Q24H [facility] Stop: 10/21/17 15:59 Last Admin: 08/24/17 15:55 Dose: 120 mg Furosemide (Lasix) 40 mg IVP BID [facility] Stop: 10/21/17 16:59 Last Admin: 08/24/17 08:35 Dose: Not Given Gabapentin (Neurontin) 600 mg PO Q6HR [facility] Stop: 10/16/17 05:59 Last Admin: 08/24/17 11:20 Dose: Not Given Hydromorphone HCl (Dilaudid) 1 mg IVP Q6H PRN PRN Reason: Pain (Moderate) Stop: 10/17/17 16:38 Last Admin: 08/24/17 03:50 Dose: 1 mg Hydromorphone HCl (Dilaudid) 2 mg IVP Q6H PRN PRN Reason: SEVERE PAIN Stop: 10/17/17 21:10 Last Admin: 08/24/17 11:16 Dose: 2 mg Levofloxacin (Levaquin Pb) 250 mg in 50 mls @ 50 mls/hr IV Q24HR [facility] Stop: 10/16/17 00:59 Last Infusion: 08/24/17 02:20 Dose: Infused Metronidazole (Flagyl) 500 mg in 100 mls @ 100 mls/hr IV Q12HR [facility] Stop: 10/18/17 20:59 Last Infusion: 08/24/17 09:05 Dose: Infused Amikacin Sulfate 375 mg/ (Dextrose) 101.5 mls @ 100 mls/hr IV Q48HR [facility] Stop: 10/19/17 08:59 Last Infusion: 08/24/17 09:30 Dose: Infused Multivitamins/Minerals 10 ml/Dextrose/ Amino Acids/Electrolytes 1,200 mls @ 50 mls/hr IV .Q24H [facility] Stop: 09/20/17 16:59 Last Admin: 08/24/17 16:03 Dose: 50 mls/hr Insulin Aspart (Novolog Insulin Sliding Scale) 0 units SUBQ Q6HR [facility]; Protocol Stop: 10/19/17 17:59 Last Admin: 08/24/17 11:18 Dose: Not Given Levothyroxine Sodium (Synthroid) 0.025 mg PO DAILY@0730 [facility] Stop: 10/16/17 07:29 Last Admin: 08/24/17 06:34 Dose: Not Given Lorazepam (Ativan) 0.5 mg IVP Q6HR PRN; Protocol PRN Reason: Agitation Stop: 10/18/17 11:03 Last Admin: 08/24/17 08:20 Dose: 0.5 mg Miscellaneous (Amikacin Iv Per Pharmacy) 1 ea PRN PRN PRN Reason: Protocol Stop: 10/18/17 15:52 Miscellaneous (Lovenox Subq Per Pharmacy) 1 [facility] PRN PRN PRN Reason: PROTOCOL Stop: 10/18/17 11:40 Miscellaneous (Ppn Per Pharmacy) 1 [facility] PRN PRN PRN Reason: PROTOCOL Stop: 10/19/17 10:04 Montelukast Sodium (Singulair) 10 mg PO DAILY [facility] Stop: 10/16/17 08:59 Last Admin: 08/24/17 08:36 Dose: Not Given Morphine Sulfate (Morphine) 1 mg IVP Q4HR PRN PRN Reason: Moderate Pain Stop: 10/15/17 21:35 Last Admin: 08/21/17 03:48 Dose: 1 mg Ondansetron HCl (Zofran) 4 mg IV Q6H PRN PRN Reason: Nausea / Vomiting Stop: 10/15/17 21:34 Last Admin: 08/18/17 16:26 Dose: 4 mg Pantoprazole Sodium (Protonix) 40 mg IVP DAILY [facility] Stop: 10/19/17 08:59 Last Admin: 08/24/17 08:28 Dose: 40 mg Prednisone (Deltasone) 5 mg PO DAILY [facility] Stop: 10/16/17 08:59 Last Admin: 08/24/17 08:36 Dose: Not Given General: Mild distress (confused) Neck: Supple Cardiovascular: Regular rate Lungs: Clear to auscultation Abdomen: Bowel sounds, Soft, Tender (LLQ), Distended (MILD) Assessment/Plan - Assessment Assessment: abdominal pain gastroenteritis sigmoid diverticulitis possible ischemic colitis with cholelithiasis and hida suggest chloecysitis cad copd pud gerd dementia - Plan Plan: iv vanco as per id surgery eval per cholecystitis as per GI cbc/bmp in am continue the rest of the orders Nutritional Asmnt/Malnutr-PDOC - Dietary Evaluation Malnutrition Findings (Please click <Entered> for more info): Nutritional Asmnt/Malnutrition Start: 08/17/17 14: 47 Text: Status: Complete Freq: Protocol: Document 08/17/17 14:47 [email or web address] (Rec: 08/17/17 15:32 [email or web address]) Nutritional Asmnt/Malnutrition Patient General Information Nutritional Screening High Risk Diagnosis elevated troponin, hypoxia, possible PNA Pertinent Medical Hx/Surgical Hx HTN, CAD, asthma/COPD, PUD/ GERD, ESRD, dementia Subjective Information Pt seen on mask at time of visit. Pt was NPO for CT scheduled today, no PO intake information available. Current Diet Order/ Nutrition Support NPO Pertinent Medications vit C, colace, levaquin, synthorid, zofran, nacl 0.9%, piperacillin, protonix Pertinent Labs 08/16 Na 135, Glucose 190, A1c 5.1 Nutritional Hx/Data Height 1.63 m Height (Calculated Centimeters) 162.6 Current Weight (lbs) 73.936 kg Weight (Calculated Kilograms) 73.9 Weight (Calculated Grams) 17343.6 [place] Body Weight 120 Body Mass Index (BMI) 27.9 Weight Status Overweight GI Symptoms GI Symptoms None Last BM none Difficult in: None Skin Integrity/Comment: reddened to coccyx, buttocks Estimated Nutritional Goals BEE in Kcals: Using Current wt Calories/Kcals/Kg 23-27 Kcals Calculated [id number] Protein g/k Protein Calculated 74 Fluid: ml 1702-1998ml (1ml/kcal) Nutritional Problem 1. Problem Problem altered nutrition related labs Etiology hyperglycemia Signs/Symptoms: glucose 190 at admission Malnutrition Alert Is there a minimum of two criteria No selected? Query Text:Check all the applicable criteria. A minimum of two criteria are recommended for diagnosis of either severe or non-severe malnutrition. Malnutrition Related to Morbid Obesity Malnutrition related to morbid obesity No Intervention/Recommendation Comments 1. Resume pureed GIOVANNI diet after CT exam. Assist pt with meals. If glucose continue high, will consider adding CCHO diet. 2. Monitor PO intake, wt, labs and skin integrity 3. F/U as high risk in 2-3 days, 08/19-08/20 Expected Outcomes/Goals Expected Outcomes/Goals 1. PO intake to meet at least 75% of nutritional needs. 2. Wt stability, skin to remain intact, labs to approach WNL.
[2017-08-25] MEDS: Levofloxacin 250mg/50mL 250 MG/50 ML BAG IV SCH (01:17)
[2017-08-25] MEDS: HYDROmorphone 2 mg/mL 1mL Vial IVP PRN ×2 (01:18→08:40)
[2017-08-25] MEDS: INSULIN ASPART SLIDING SCALE 100 UNITS/ML UNIT SUBQ SCH ×3 (03:20→12:55)
[2017-08-25] MEDS: Diltiazem 30 mg Tab PO SCH ×3 (04:11→12:53)
[2017-08-25] MEDS: Hydrocodone/APAP 5mg/325mg Tab PO SCH ×2 (04:13→09:30)
[2017-08-25 04:20] LABS: ALB/GLOB RATIO 0.7 (1.0-1.8); ALKALINE PHOSPHATASE 38 U/L (34-104); ANION GAP 6.6 (7.0-16.0); BILIRUBIN,TOTAL 0.8 mg/dL (0.3-1.0); BUN - UREA NITROGEN 62 mg/dL (7-25); CALCIUM SERUM 7.7 mg/dL (8.6-10.3); CARBON DIOXIDE 20.9 mEq/L (21.0-31.0); CHLORIDE 113 mEq/L (98-107); CREATININE - SERUM 2.4 mg/dL (0.6-1.2); GLUCOSE 151 mg/dL (70-105); PHOSPHOROUS 3.4 mg/dL (2.5-5.0); POTASSIUM SERUM 3.5 mEq/L (3.5-5.1); SGOT 19 U/L (13-39); SGPT/ALT 111 U/L (7-52); SODIUM SERUM 137 mEq/L (136-145); TOTAL PROTEIN,SERUM 5.1 gm/dL (6.0-8.3)
[2017-08-25] MEDS: Levothyroxine 0.025 Mg Tab PO SCH (06:34)
[2017-08-25] MEDS: Atorvastatin Calcium 10 MG TAB PO SCH (08:56)
[2017-08-25] MEDS: metroNIDAZOLE 500mg/NS 100mL 500 MG/100 ML BAG IV SCH (08:57)
--- NOTE | 2017-08-29 11:46 | Discharge Summary ---
DATE OF DISCHARGE: 08/25/2017 HISTORY AND HOSPITAL COURSE: Unfortunate 87-year-old female patient who was recently discharged from [facility], was admitted to [facility] on 08/16/2017. The patient was discharged on 08/25/2017 to hospice care and the patient initially was admitted for severe abdominal pain, fever, chills and also had chest pain. The patient has a history of ____ hypertension, Sjogren syndrome, hypoxia, dementia, diabetes 2, CKD and osteoporosis ____. The patient was treated for all of that and the patient was in ICU for 2 days but family has decided to make him a no code in the middle of the treatment and so the patient was made DNR. The patient was discharged to [facility] under the care of primary doctors where they will be following the patient. Condition at the time of discharge is unstable ____. JOB# [id number]
== END 2017-08-25 09:30 | DRG 871 ==
LOC: ER 17:54 → TELE 20:00 → ICU 08-19 11:50
PROVIDERS: ADMIT Internal Medicine; ATTEND Internal Medicine
DX: A41.9 Sepsis, unspecified organism (principal); I21.4 Non-ST elevation (NSTEMI) myocardial infarction; J96.00 Acute respiratory failure, unspecified whether with hypoxia or hypercapnia; N18.6 End stage renal disease; J18.9 Pneumonia, unspecified organism; K57.33 Diverticulitis of large intestine without perforation or abscess with bleeding; N39.0 Urinary tract infection, site not specified; I12.0 Hypertensive chronic kidney disease with stage 5 chronic kidney disease or end stage renal disease; J44.1 Chronic obstructive pulmonary disease with (acute) exacerbation; J44.0 Chronic obstructive pulmonary disease with (acute) lower respiratory infection; K57.32 Diverticulitis of large intestine without perforation or abscess without bleeding; K55.9 Vascular disorder of intestine, unspecified; K80.10 Calculus of gallbladder with chronic cholecystitis without obstruction; I25.10 Atherosclerotic heart disease of native coronary artery without angina pectoris; K52.9 Noninfective gastroenteritis and colitis, unspecified; K27.9 Peptic ulcer, site unspecified, unspecified as acute or chronic, without hemorrhage or perforation; Z66 Do not resuscitate; M35.00 Sjogren syndrome, unspecified; E11.22 Type 2 diabetes mellitus with diabetic chronic kidney disease; L89.152 Pressure ulcer of sacral region, stage 2; M81.0 Age-related osteoporosis without current pathological fracture; I25.9 Chronic ischemic heart disease, unspecified; E03.9 Hypothyroidism, unspecified; K21.9 Gastro-esophageal reflux disease without esophagitis; F03.90 Unspecified dementia, unspecified severity, without behavioral disturbance, psychotic disturbance, mood disturbance, and anxiety; K44.9 Diaphragmatic hernia without obstruction or gangrene; E78.5 Hyperlipidemia, unspecified; I25.119 Atherosclerotic heart disease of native coronary artery with unspecified angina pectoris; L30.9 Dermatitis, unspecified; E11.40 Type 2 diabetes mellitus with diabetic neuropathy, unspecified; Z68.28 Body mass index [BMI] 28.0-28.9, adult; Z87.11 Personal history of peptic ulcer disease; Z83.3 Family history of diabetes mellitus; Z82.49 Family history of ischemic heart disease and other diseases of the circulatory system; Z88.1 Allergy status to other antibiotic agents; Z88.0 Allergy status to penicillin; Z88.8 Allergy status to other drugs, medicaments and biological substances
CPT/HCPCS: 36415-UA; 36600-90; 71045-TC; 76700-TC; 78226-TC; 80053-TC; 80061-TC; 80074-90; 80150-TC; 80329-TC; 81001-TC; 82150-TC; 82248-TC; 82550-TC; 82728-90; 82803-TC; 82948-90; 83036-90; 83516-90; 83540-90; 83550-90; 83690-TC; 83735-TC; 83880-TC; 84100-TC; 84443-TC; 84484-TC; 85025-TC; 85610-TC; 87086-90; 90779; 90799; 93005; 94640; 94760; 96374; 96375; A9537; C9113; J0278; J1170; J1650; J1815; J1940; J1956; J2060; J2270; J2405; J2930; J7030; J7040; J7042; J7512; J7613; X3401; X6598; Z7610